=== PATIENT | male | born 1955 | race Caucasian/White ===

== ENCOUNTER 2018-02-22 13:17 | Inpatient (IN) | payer MEDICARE, MEDICAID ==
--- NOTE | 2018-02-22 14:22 | ED Physician Chart ---
ED Chief Complaint/HPI - Patient Information Date Seen:: 02/22/18 Time Seen:: 14:12 History of Present Illness:: COUGH THIS A.M. WITH ASSOCIATED EMESIS 1. THE PATIENT DENIES ANY ASSOCIATED FEVER, CHILLS OR CHEST PAIN. PATIENT IS STATUS POST CVA AND IS CONFUSED AND THE HPI IS UNRELIABLE. Paperwork which accompanies the patientis he has schizophrenia GERD hypertensive heart disease and anxiety disorder COPD Allergies:: Allergies Allergy/AdvReac Type Severity Reaction Status Date / Time No Known Allergies Allergy Verified 05/22/16 16:09 Vitals:: Vital Signs - 8 hr 02/22/18 13:27 Temp 99.6 F HR 104 RR 19 BP 116/65 O2 Sat % 98 ED Review of Systems - Review of Systems General/Constitutional: Fever (patient is too confused to give adequate review of systems.), Weakness, No edema, Loss of appetite, Other (patient too confused and disoriented to provide an adequate ROS.) Skin: No rash Eyes: No diplopia ENT: No earache, No sore throat Neck: No mass noted, Other (nonambulatory due to stroke December 2017.) ED Past Medical History - Past Medical History Past Medical History: CAD, Other (hypertensive heart disease, COPD, GERD, schizophrenia, history of pressure ulceration over the buttocks) Family History: HTN Social History: Non Smoker, Care Facility Surgical History: Pacemaker (left knee.) Family Medical History - Family Member Mother History Unknown: Yes ED Labs/Radiology/EKG Results - Lab Results Comments:: Single view chest x-ray: There is mild cardiomegaly with no CHF. No areas of pulmonary consolidation or infiltrate. No pleural effusions. No pneumothorax. The aorta is tortuous with calcifications. Impression: No acute cardiopulmonary findings. ED Assessment - Assessment General Assessment: Triage Nursing Notes Reviewed. ED Septic Shock - . Is Septic Shock (SBP<90, OR Lactate>4 mmol\L) present?: No - <6hrs of presentation: Vital Signs: Vital Signs - 8 hr 02/22/18 13:27 Temp 99.6 F HR 104 RR 19 BP 116/65 O2 Sat % 98 Assessment of Lungs: Rhonchi, No Rales, No Wheezing, No Stridor ED Reassessment (Disposition) - Reassessment Reassessment Condition:: Unchanged - Diagnosis Diagnosis:: SEPSIS UNCLEAR SOURCE. - Patient Disposition Discharge/Transfer:: Acute Care w/in this hosp ED Discharge Plan - Patient Disposition Admit/Discharge/Transfer: Acute Care w/in this hosp
[2018-02-22 15:14] LABS: HEMATOCRIT 39.7 % (41.0-60); HEMOGLOBIN 12.8 gm/dL (12-16); MEAN CELL VOLUME 83.9 fl (80-99); MEAN CORPUSCULAR HGB CONC 32.2 pg (28.0-36.0); MEAN PLATELET VOLUME 9.8 fl; PLATELET COUNT 200 Th/cmm (150-400); RED BLOOD COUNT 4.73 Mil/cmm (4.30-5.70); RED CELL DISTRIBUTION WIDTH 17.9 % (11.5-20.0)
[2018-02-22 15:26] LABS: BUN - UREA NITROGEN 15 mg/dL (7-25); CALCIUM SERUM 9.7 mg/dL (8.6-10.3); CHLORIDE 99 mEq/L (98-107); CREATININE - SERUM 0.7 mg/dL (0.7-1.3); GFR AFRICAN-AMERICAN > 60.0 ml/min (>90); GFR NON AFRICAN-AMERICAN > 60.0 ml/min; GLUCOSE 126 mg/dL (70-105); SODIUM SERUM 130 mEq/L (136-145)
[2018-02-22 15:29] LABS: MANUAL DIFF REQUIRED? YES; WHITE BLOOD COUNT 17.8 Th/cmm (4.8-10.8)
[2018-02-22 15:39] LABS: LYMPHOCYTE 4 % (20-50); MONOCYTE 4 % (2-10); NEUTROPHILS 92 % (40-80); PLATELET ESTIMATE ADEQUATE (NORMAL)
[2018-02-22] MEDS ORDERED: cefTRIAXone 2 GM in Sodium Chloride 0.9% 100 ML IV ONE (18:32)
[2018-02-22] MEDS ORDERED: Acetaminophen 500 MG TAB PO ONE (19:46)
[2018-02-22] MEDS ORDERED: Sodium Chloride 0.9% 1,000 ML IV ONE (19:46)
[2018-02-22] MEDS ORDERED: Acetaminophen 500 MG TAB ONE (20:00)
[2018-02-22] MEDS ORDERED: Magnesium Hydroxide (MOM) 30 mL UDC PO PRN (22:05)
[2018-02-22] MEDS ORDERED: VALPROIC ACID 250 MG PO SCH (22:15)
[2018-02-22 22:41] VITALS: BP 139/81
--- NOTE | 2018-02-22 23:03 | Consultation ---
Consult Note - Consult Note Service Date: 02/22/18 Referring Physician: [place] Consult Note: PHYSICIAN Consultation Note: Date of Admission: 02/22/18 Purpose of Consultation: sepsis. Chief Complaint: Patient KIP MARIE was admitted to location Medical/ Surgical Unit I with SEPSIS. History of Present Illness: 63 year old male with history of CAD, CVA, HTN, schizophrenia, had developed fever and vomiting, so he was brought to the ED for further evaluation and management. on initial evaluation, his temperature was 99.6 degree F, it went up to100.5 degree F. Her WBC count was 17,800. Zosyn was started and ID consult was called for antibiotic management. CXR showed LLL infiltrates and effusion. Past Medical History: CAD, CVA, HTN, schizophrenia, Allergies Allergy/AdvReac Type Severity Reaction Status Date / Time No Known Allergies Allergy Verified 05/22/16 16:09 Vital Signs Temp 99.6 F 02/22/18 13:27 Pulse 104 02/22/18 13:27 Resp 19 02/22/18 13:27 BP 139/81 02/22/18 22:41 Pulse Ox 98 02/22/18 13:27 Intake & Output 02/22/18 02/22/18 02/23/18 06:59 18:59 06:59 Weight (lbs) 96.162 kg Home Medication Medication Instructions Recorded Type Acetaminophen [Tylenol] 650 mg PO Q4H PRN 08/14/12 History Aspirin [Aspirin Low Dose] 81 mg PO DAILY 08/14/12 History Docusate Sodium [Colace] 200 mg PO HS 08/14/12 History Magnesium Hydroxide [Milk of 30 ml PO HS PRN 08/14/12 History Magnesia] Bisacodyl [Dulcolax 5 Mg Ec Tab] 10 mg PO Q72H PRN 09/19/15 History Lisinopril [Zestril] 10 mg PO DAILY 05/22/16 History Multivitamin with Minerals 1 tab PO DAILY 05/22/16 History [Multi-Vitamin W/Minerals] Omeprazole [Prilosec*] 20 mg PO DAILY 05/22/16 History Ascorbic Acid [Vitamin C] 500 mg PO DAILY 02/22/18 History Ferrous Sulfate [Iron] 325 mg PO BID 02/22/18 History Melatonin 6 mg PO HS PRN 02/22/18 History OLANZapine [ZyPREXA] 20 mg PO DAILY 02/22/18 History Potassium Chloride 1 cap PO DAILY 02/22/18 History Valproic Acid (As Sodium Salt) 250 mg PO Q12H 02/22/18 History [Depakene] Zinc Sulfate 220 mg PO DAILY 02/22/18 History Current Medications Generic Name Dose Route Start Last Admin Trade Name Freq PRN Reason Stop Dose Admin Acetaminophen 650 mg 02/22/18 22:05 Tylenol PO 04/23/18 22:04 Q4H PRN Pain OR TEMP>100 Ascorbic Acid 500 mg 02/23/18 09:00 Vitamin C PO 04/24/18 08:59 DAILY [facility] Aspirin 81 mg 02/23/18 09:00 Aspirin Chewable PO 04/24/18 08:59 DAILY [facility] Bisacodyl 10 mg 02/22/18 22:05 Dulcolax 5 Mg Ec Tab PO 04/23/18 22:04 Q72H PRN Constipation Docusate Sodium 200 mg 02/23/18 21:00 Colace PO 04/24/18 20:59 HS [facility] Ferrous Sulfate 325 mg 02/23/18 09:00 Iron PO 04/24/18 08:59 BID [facility] Sodium Chloride 1,000 mls @ 100 mls/hr 02/22/18 22:15 Nacl 0.9% IV 04/23/18 22:14 .Q10H [facility] Piperacillin Sod/Tazobactam 50 mls @ 100 mls/hr 02/23/18 00:00 Sod 3.375 gm/ Sodium Chloride IV 04/24/18 00:00 Q6HR [facility] Vancomycin HCl 1.25 gm/ Sodium 250 mls @ 165 mls/hr 02/22/18 23:00 Chloride IV 02/23/18 00:30 ONCE ONE Lisinopril 10 mg 02/23/18 09:00 Zestril PO 04/24/18 08:59 DAILY [facility] Magnesium Hydroxide 30 ml 02/22/18 22:05 Milk Of Magnesia PO 04/23/18 22:04 HS PRN Constipation Miscellaneous 1 ea 02/22/18 22:03 Vancomycin Iv Per Pharmacy 04/23/18 22:02 PRN PRN PROTOCOL Miscellaneous 250 mg 02/22/18 22:15 Valproic Acid (As Sodium Salt) [Depakene] PO 04/23/18 22:14 Q12H [facility] Olanzapine 20 mg 02/23/18 09:00 Zyprexa PO 04/24/18 08:59 DAILY [facility] Protocol Pantoprazole Sodium 40 mg 02/23/18 09:00 Protonix PO 04/24/18 08:59 DAILY [facility] Review of Systems: A 12 point ROS was reviewed with the pertinent positive and negatives noted in the HPI. Physical Exam: General: no acute distress, well developed, well nourished HEENT: atraumatic, normocephalic, PERRLA, EOMI Neck: supple, no thyromegaly Cardiovascular: S1S2, regular Lungs: clear to auscultation bilaterally, clear to percussion Abdomen: soft, no tender, no distended, no mass Extremities: no cyanosis, no clubbing, no edema Neurological: awake, alert, oriented, CN 2-12 intact Skin: intact Assessment: 1. Leukocytosis, sepsis. 2. Pneumoia, aspiration. 3. vomiting. 4. CAD. 5. CVA. 6. HTN. 7. schizophrenia. Plan: Conitnue vanco IV and zosyn. Will follow up the labs. Thank you, Dr Everett for involving me in taking care of this patient. Anna, Albaro Souza M.D. [id number]
[2018-02-22] MEDS: Sodium Chloride 0.9% 1,000 ML IV SCH (23:12)
[2018-02-23] MEDS ORDERED: Piperacillin Sodium/Tazobact 3.375 gm Vial IV ONE ×2 (00:11→05:34)
[2018-02-23 06:51] LABS: % BASOPHILS 0.1 % (0.0-2.0); % EOSINOPHILS 0.4 % (0.0-5.0); % LYMPHOCYTES 12.6 % (20.0-50.0); % MONOCYTES 8.8 % (2.0-10.0); % NEUTROPHILS 78.1 % (40.0-80.0); HEMOGLOBIN 11.3 gm/dL (12-16); LYMPHOCYTE ABSOLUTE 1.3 Th/cmm (1.5-3.0); MEAN CELL VOLUME 83.5 fl (80-99); MEAN CORPUSCULAR HEMOGLOBIN 27.8 pg (26.0-30.0); MEAN CORPUSCULAR HGB CONC 33.2 pg (28.0-36.0); MEAN PLATELET VOLUME 10.2 fl; MONOCYTE ABSOLUTE 0.9 Th/cmm (0.3-1.0); NEUTROPHILE ABSOLUTE 8.1 Th/cmm (1.8-8.0); RED BLOOD COUNT 4.08 Mil/cmm (4.30-5.70); RED CELL DISTRIBUTION WIDTH 17.9 % (11.5-20.0)
[2018-02-23 06:56] LABS: HEMATOCRIT 34.1 % (41.0-60); WHITE BLOOD COUNT 10.3 Th/cmm (4.8-10.8)
[2018-02-23 06:57] LABS: PLATELET COUNT 121 Th/cmm (150-400)
[2018-02-23 07:00] LABS: ALB/GLOB RATIO 0.9 (1.0-1.8); ALBUMIN 3.1 gm/dL (4.2-5.5); ALKALINE PHOSPHATASE 63 U/L (34-104); ANION GAP 10.4 (7.0-16.0); BILIRUBIN,TOTAL 0.5 mg/dL (0.3-1.0); BUN - UREA NITROGEN 12 mg/dL (7-25); CALCIUM SERUM 8.9 mg/dL (8.6-10.3); CARBON DIOXIDE 21.4 mEq/L (21.0-31.0); CHLORIDE 103 mEq/L (98-107); CREATININE - SERUM 0.5 mg/dL (0.7-1.3); GFR AFRICAN-AMERICAN > 60.0 ml/min (>90); GFR NON AFRICAN-AMERICAN > 60.0 ml/min; GLUCOSE 95 mg/dL (70-105); POTASSIUM SERUM 3.8 mEq/L (3.5-5.1); SGOT 9 U/L (13-39); SGPT/ALT 8 U/L (7-52); SODIUM SERUM 131 mEq/L (136-145); TOTAL PROTEIN,SERUM 6.6 gm/dL (6.0-8.3)
[2018-02-23] MEDS: Ferrous Sulfate 325 MG TAB PO SCH ×2 (09:03→18:13)
[2018-02-23] MEDS: Aspirin 81mg Chewable Tab PO SCH (09:03)
[2018-02-23] MEDS: Pantoprazole 40 mg EC Tab PO SCH (09:03)
[2018-02-23] MEDS: Multivitamin w/ Minerals Tab PO SCH (09:04)
--- NOTE | 2018-02-23 09:17 | History and Physical ---
History of Present Illness - HPI Chief Complaint: Fever and vomit HPI: This is a permanent resident of a care home, I received a call from SNF stating that patient has having Vomit and fever. Patient was send to ER for Evaluation. During ER evaluation was foung Leukocytosis . 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 Social History Smoke: No Alcohol: None Drugs: None Lives: [facility] Domestic Violence: Negative - Medications Home Medications: Home Medication Medication Instructions Recorded Type Acetaminophen [Tylenol] 650 mg PO Q4H PRN 08/14/12 History Aspirin [Aspirin Low Dose] 81 mg PO DAILY 08/14/12 History Docusate Sodium [Colace] 200 mg PO HS 08/14/12 History Magnesium Hydroxide [Milk of 30 ml PO HS PRN 08/14/12 History Magnesia] Bisacodyl [Dulcolax 5 Mg Ec Tab] 10 mg PO Q72H PRN 09/19/15 History Lisinopril [Zestril] 10 mg PO DAILY 05/22/16 History Multivitamin with Minerals 1 tab PO DAILY 05/22/16 History [Multi-Vitamin W/Minerals] Omeprazole [Prilosec*] 20 mg PO DAILY 05/22/16 History Ascorbic Acid [Vitamin C] 500 mg PO DAILY 02/22/18 History Ferrous Sulfate [Iron] 325 mg PO BID 02/22/18 History Melatonin 6 mg PO HS PRN 02/22/18 History OLANZapine [ZyPREXA] 20 mg PO DAILY 02/22/18 History Potassium Chloride 1 cap PO DAILY 02/22/18 History Valproic Acid (As Sodium Salt) 250 mg PO Q12H 02/22/18 History [Depakene] Zinc Sulfate 220 mg PO DAILY 02/22/18 History - Allergies Allergies/Adverse Reactions: Allergies Allergy/AdvReac Type Severity Reaction Status Date / Time No Known Allergies Allergy Verified 05/22/16 16:09 Review of Systems - Review of Systems Constitutional: Report: Fever Eyes: Report: No Significant ENT: Report: No Significant Respiratory: Report: No Significant Cardiovascular: Report: No Significant Gastrointestinal: Report: Nausea, Vomiting Genitourinary: Report: No Significant Musculoskeletal: Report: Leg Pain Skin: Report: Other (Left buttock ulcer) Neurological: Report: Weakness, Other (limited movement of right leg.) Physical Exam - Physical Exam HEENT: Report: Ears Nose Throat within normal limits Neck: Report: Within normal limits Cardiovascular Systems: Report: Regular, Rate and Rhythm Respiratory: Report: Breath Sounds are within normal limits Abdomen: Report: Non-tender to palpation Back: Report: Inspection of back is within normal limits. Extremities: Report: Other (Right leg contracted) Skin: Report: Other (Decubit ulcer in left buttock stage 3) Neuro/Psych: Report: Disoriented to name time or place - Lab Results All Lab Results last 24 hours: Laboratory Results - last 24 hr 02/23/18 02/23/18 02/23/18 05:56 05:56 05:56 WBC 10.3 D RBC 4.08 L Hgb 11.3 L Hct 34.1 L D MCV 83.5 MCH 27.8 MCHC Differential 33.2 RDW 17.9 Plt Count 121 L D MPV 10.2 Neutrophils % 78.1 Lymphocytes % 12.6 L Monocytes % 8.8 Eosinophils % 0.4 Basophils % 0.1 Sodium 131 L Potassium 3.8 Chloride 103 Carbon Dioxide 21.4 Anion Gap 10.4 BUN 12 Creatinine 0.5 L Est GFR ( Amer) > 60.0 Est GFR (Non-Af Amer) > 60.0 BUN/Creatinine Ratio 24.0 Glucose 95 Calcium 8.9 Total Bilirubin 0.5 AST 9 L ALT 8 Alkaline Phosphatase 63 Total Protein 6.6 Albumin 3.1 L Globulin 3.5 Albumin/Globulin Ratio 0.9 L TSH 2.22 - Assessment Assessment: Current Active Problems Problem Status Onset COUGH WITH FEVER AND N/V Acute Patient is awake, alert, calm, not oriented, in no acute distress. 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 Consult with ID requested. Will continue to monitor.
--- NOTE | 2018-02-23 10:45 | Diagnostic Imaging Report ---
Exam: Portable chest x-ray HISTORY: Cough Findings: Portable examination of the chest at 1454 hours reviewed and compared to prior exam of 08/14/2012 demonstrates cardiomegaly. Ill-defined left basilar peribronchial infiltrate is noted superimposed small effusion. The right lung parenchyma is well aerated. Bony thorax intact. Mediastinal structures midline the heart is enlarged. IMPRESSION: left basilar infiltrate superimposed small effusion cannot be excluded follow-up exam is recommended.
[2018-02-23 15:38] LABS: URINE MICROSCOPIC INDICATED? YES; URINE SOURCE CLEAN C
[2018-02-23 15:39] LABS: URINE BILIRUBIN NEGATIVE (NEGATIVE); URINE BLOOD TRACE (NEGATIVE); URINE GLUCOSE (UA) NEGATIVE (NEGATIVE); URINE KETONE NEGATIVE (NEGATIVE); URINE LEUKOCYTE ESTERASE NEGATIVE (NEGATIVE); URINE NITRATE NEGATIVE (NEGATIVE); URINE PROTEIN NEGATIVE (NEGATIVE); URINE UROBILINOGEN 0.2 E.U./dL (0.2 - 1.0)
[2018-02-23 15:45] LABS: URINE CLARITY CLEAR (CLEAR); URINE COLOR YELLOW
[2018-02-23] MEDS: Sodium Chloride 0.9% 1,000 ML IV SCH (15:45)
[2018-02-23 15:46] LABS: URINE BACTERIA NONE SEEN /hpf (NONE SEEN); URINE EPITHELIAL CELLS RARE /lpf (FEW); URINE RBC 0-2 /hpf (0-5); URINE WBC 0-2 /hpf (0-5)
--- NOTE | 2018-02-23 20:04 | Infectious Disease Prog Note ---
Infectious Disease Subjective - Review of Systems Service Date: 02/23/18 Subjective: There is no new change, no fever. Infectious Disease Objective - Results Result Diagrams: 02/23/18 05:56 02/23/18 05:56 Recent Labs: Laboratory Last Values WBC 10.3 Th/cmm (4.8-10.8) D 02/23/18 05:56 RBC 4.08 Mil/cmm (4.30-5.70) L 02/23/18 05:56 Hgb 11.3 gm/dL (12-16) L 02/23/18 05:56 Hct 34.1 % (41.0-60) L D 02/23/18 05:56 MCV 83.5 fl (80-99) 02/23/18 05:56 MCH 27.8 pg (26.0-30.0) 02/23/18 05:56 MCHC Differential 33.2 pg (28.0-36.0) 02/23/18 05:56 RDW 17.9 % (11.5-20.0) 02/23/18 05:56 Plt Count 121 Th/cmm (150-400) L D 02/23/18 05:56 MPV 10.2 fl 02/23/18 05:56 Neutrophils % 78.1 % (40.0-80.0) 02/23/18 05:56 Lymphocytes % 12.6 % (20.0-50.0) L 02/23/18 05:56 Monocytes % 8.8 % (2.0-10.0) 02/23/18 05:56 Eosinophils % 0.4 % (0.0-5.0) 02/23/18 05:56 Basophils % 0.1 % (0.0-2.0) 02/23/18 05:56 Neutrophils (Manual) 92 % (40-80) H 02/22/18 15:05 Lymphocytes 4 % (20-50) L 02/22/18 15:05 Monocytes 4 % (2-10) 02/22/18 15:05 Platelet Estimate ADEQUATE (NORMAL) 02/22/18 15:05 Sodium 131 mEq/L (136-145) L 02/23/18 05:56 Potassium 3.8 mEq/L (3.5-5.1) 02/23/18 05:56 Chloride 103 mEq/L (98-107) 02/23/18 05:56 Carbon Dioxide 21.4 mEq/L (21.0-31.0) 02/23/18 05:56 Anion Gap 10.4 (7.0-16.0) 02/23/18 05:56 BUN 12 mg/dL (7-25) 02/23/18 05:56 Creatinine 0.5 mg/dL (0.7-1.3) L 02/23/18 05:56 Est GFR ( Amer) > 60.0 ml/min (>90) 02/23/18 05:56 Est GFR (Non-Af Amer) > 60.0 ml/min 02/23/18 05:56 BUN/Creatinine Ratio 24.0 02/23/18 05:56 Glucose 95 mg/dL (70-105) 02/23/18 05:56 Whole Bld Lactic Acid 1.01 mmol/L (0.60-1.99) 02/22/18 15:39 Calcium 8.9 mg/dL (8.6-10.3) 02/23/18 05:56 Total Bilirubin 0.5 mg/dL (0.3-1.0) 02/23/18 05:56 AST 9 U/L (13-39) L 02/23/18 05:56 ALT 8 U/L (7-52) 02/23/18 05:56 Alkaline Phosphatase 63 U/L (34-104) 02/23/18 05:56 Total Protein 6.6 gm/dL (6.0-8.3) 02/23/18 05:56 Albumin 3.1 gm/dL (4.2-5.5) L 02/23/18 05:56 Globulin 3.5 gm/dL 02/23/18 05:56 Albumin/Globulin Ratio 0.9 (1.0-1.8) L 02/23/18 05:56 TSH 2.22 uIU/ml (0.34-5.60) 02/23/18 05:56 Urine Source CLEAN C 02/23/18 15:00 Urine Color YELLOW 02/23/18 15:00 Urine Clarity CLEAR (CLEAR) 02/23/18 15:00 Urine pH 6.0 (4.6 - 8.0) 02/23/18 15:00 Ur Specific Chapman <= 1.005 (1.005-1.030) 02/23/18 15:00 Urine Protein NEGATIVE mg/dL (NEGATIVE) 02/23/18 15:00 Urine Glucose (UA) NEGATIVE mg/dL (NEGATIVE) 02/23/18 15:00 Urine Ketones NEGATIVE mg/dL (NEGATIVE) 02/23/18 15:00 Urine Blood TRACE (NEGATIVE) 02/23/18 15:00 Urine Nitrate NEGATIVE (NEGATIVE) 02/23/18 15:00 Urine Bilirubin NEGATIVE (NEGATIVE) 02/23/18 15:00 Urine Urobilinogen 0.2 E.U./dL (0.2 - 1.0) 02/23/18 15:00 Ur Leukocyte Esterase NEGATIVE (NEGATIVE) 02/23/18 15:00 Urine RBC 0-2 /hpf (0-5) H 02/23/18 15:00 Urine WBC 0-2 /hpf (0-5) 02/23/18 15:00 Ur Epithelial Cells RARE /lpf (FEW) 02/23/18 15:00 Urine Bacteria NONE SEEN /hpf (NONE SEEN) 02/23/18 15:00 - Physical Exam Vitals and I&O: Vital Signs Temp 98.4 F 02/23/18 16:00 Pulse 84 02/23/18 16:00 Resp 18 02/23/18 16:00 BP 117/69 02/23/18 16:00 Pulse Ox 99 02/23/18 16:00 Intake & Output 02/23/18 02/23/18 02/24/18 06:59 18:59 06:59 Intake Total 400 2446.667 Balance 400 2446.667 Weight (lbs) 96.162 kg 96.252 kg Intake: Intake, IV Amount 350 1346.667 Piperacillin Sodium/ 100 100 Tazobact 3.375 gm In Sodium Chloride 0.9% 50 ml @ 100 mls/hr IV Q6HR [facility] Rx#:[id number] Sodium Chloride 0.9% 1, 1246.667 000 ml @ 100 mls/hr IV . Q10H [facility] Rx#:[id number] Oral 50 1100 Other: # Voids 3 4 # Bowel Movements 0 1 Stool Characteristics Soft Formed Brown Weight Source Bedscale Bedscale Active Medications: Current Medications Acetaminophen (Tylenol) 650 mg PO Q4H PRN PRN Reason: Pain OR TEMP>100 Stop: 04/23/18 22:04 Last Admin: 02/23/18 05:39 Dose: 650 mg Ascorbic Acid (Vitamin C) 500 mg PO DAILY [facility] Stop: 04/24/18 08:59 Last Admin: 02/23/18 09:04 Dose: 500 mg Aspirin (Aspirin Chewable) 81 mg PO DAILY [facility] Stop: 04/24/18 08:59 Last Admin: 02/23/18 09:03 Dose: 81 mg Bisacodyl (Dulcolax 5 Mg Ec Tab) 10 mg PO Q72H PRN PRN Reason: Constipation Stop: 04/23/18 22:04 Docusate Sodium (Colace) 200 mg PO HS [facility] Stop: 04/24/18 20:59 Ferrous Sulfate (Iron) 325 mg PO BID [facility] Stop: 04/24/18 08:59 Last Admin: 02/23/18 18:13 Dose: Not Given Sodium Chloride (Nacl 0.9%) 1,000 mls @ 100 mls/hr IV .Q10H [facility] Stop: 04/23/18 22:14 Last Infusion: 02/23/18 18:13 Dose: 100 mls/hr Piperacillin Sod/Tazobactam (Sod 3.375 gm/ Sodium Chloride) 50 mls @ 100 mls/ hr IV Q6HR [facility] Stop: 04/24/18 00:00 Last Infusion: 02/23/18 18:13 Dose: Infused Lisinopril (Zestril) 10 mg PO DAILY [facility] Stop: 04/24/18 08:59 Last Admin: 02/23/18 09:04 Dose: 10 mg Magnesium Hydroxide (Milk Of Magnesia) 30 ml PO HS PRN PRN Reason: Constipation Stop: 04/23/18 22:04 Miscellaneous (Vancomycin Iv Per Pharmacy) 1 ea [facility] PRN PRN PRN Reason: PROTOCOL Stop: 04/23/18 22:02 Olanzapine (Zyprexa) 20 mg PO DAILY [facility] PRN Reason: Protocol Stop: 04/24/18 08:59 Last Admin: 02/23/18 09:03 Dose: 20 mg Pantoprazole Sodium (Protonix) 40 mg PO DAILY [facility] Stop: 04/24/18 08:59 Last Admin: 02/23/18 09:03 Dose: 40 mg Valproate Sodium (Depakene) 250 mg PO Q12H [facility] Stop: 04/24/18 09:44 Last Admin: 02/23/18 10:13 Dose: 250 mg General: no acute distress, well nourished HEENT: atraumatic, normocephalic, PERRLA, EOMI Neck: supple, no thyromegaly Cardiovascular: S1S2, regular Lungs: no clear to auscultation bilaterally, no clear to percussion Abdomen: soft, no tender, no distended Extremities: no cyanosis, no clubbing, no edema Neurological: awake, alert - Procedures Procedures: Procedures Procedure Code Date OTHER GROUP THERAPY 94.44 03/29/12 RECREATIONAL THERAPY 93.81 09/06/11 Infectious Disease Assmt/Plan - Problem List Patient Problems: All Active Problems COUGH WITH FEVER AND N/V (Acute) - Assessment Assessment: 1. Leukocytosis, resolved. 2. pneumonia. 3. Vomiting resolved. 4, Schizophrenia. 5. CAD. 5. CVA. 6. HTN. 7. schizophrenia. - Plan Plan: DC vanco iv and continue zosyn. Check F/u cxr. Check abdomial us, if negative may dc patient on levaquin 500mg po daily and flagyl 500mg po bid for 7 days.
[2018-02-24 06:33] LABS: % BASOPHILS 0.6 % (0.0-2.0); % EOSINOPHILS 6.2 % (0.0-5.0); % LYMPHOCYTES 23.6 % (20.0-50.0); % MONOCYTES 12.9 % (2.0-10.0); % NEUTROPHILS 56.7 % (40.0-80.0); EOSINOPHILE ABSOLUTE 0.4 Th/cmm (0.1-0.4); HEMATOCRIT 32.9 % (41.0-60); HEMOGLOBIN 10.8 gm/dL (12-16); LYMPHOCYTE ABSOLUTE 1.6 Th/cmm (1.5-3.0); MEAN CELL VOLUME 84.5 fl (80-99); MEAN CORPUSCULAR HEMOGLOBIN 27.7 pg (26.0-30.0); MEAN CORPUSCULAR HGB CONC 32.8 pg (28.0-36.0); MEAN PLATELET VOLUME 8.7 fl; MONOCYTE ABSOLUTE 0.9 Th/cmm (0.3-1.0); PLATELET COUNT 242 Th/cmm (150-400); RED BLOOD COUNT 3.89 Mil/cmm (4.30-5.70); RED CELL DISTRIBUTION WIDTH 17.9 % (11.5-20.0); WHITE BLOOD COUNT 6.9 Th/cmm (4.8-10.8)
[2018-02-24 06:57] LABS: ALB/GLOB RATIO 0.9 (1.0-1.8); ALKALINE PHOSPHATASE 57 U/L (34-104); ANION GAP 10.5 (7.0-16.0); BILIRUBIN,TOTAL 0.2 mg/dL (0.3-1.0); BUN - UREA NITROGEN 12 mg/dL (7-25); CALCIUM SERUM 8.6 mg/dL (8.6-10.3); CARBON DIOXIDE 22.3 mEq/L (21.0-31.0); CHLORIDE 106 mEq/L (98-107); CREATININE - SERUM 0.6 mg/dL (0.7-1.3); GFR AFRICAN-AMERICAN > 60.0 ml/min (>90); GFR NON AFRICAN-AMERICAN > 60.0 ml/min; GLUCOSE 87 mg/dL (70-105); POTASSIUM SERUM 3.8 mEq/L (3.5-5.1); SGOT 14 U/L (13-39); SGPT/ALT 12 U/L (7-52); SODIUM SERUM 135 mEq/L (136-145); TOTAL PROTEIN,SERUM 6.3 gm/dL (6.0-8.3)
[2018-02-24] MEDS ORDERED: Probiotic Screen MC PRN (08:45)
--- NOTE | 2018-02-24 08:47 | General Progress Note ---
Subjective - Review of Systems Service Date: 02/24/18 Subjective: I am fine Objective - Results Result Diagrams: 02/24/18 06:20 02/24/18 06:20 Recent Labs: Laboratory Last Values WBC 6.9 Th/cmm (4.8-10.8) 02/24/18 06:20 RBC 3.89 Mil/cmm (4.30-5.70) L 02/24/18 06:20 Hgb 10.8 gm/dL (12-16) L 02/24/18 06:20 Hct 32.9 % (41.0-60) L 02/24/18 06:20 MCV 84.5 fl (80-99) 02/24/18 06:20 MCH 27.7 pg (26.0-30.0) 02/24/18 06:20 MCHC Differential 32.8 pg (28.0-36.0) 02/24/18 06:20 RDW 17.9 % (11.5-20.0) 02/24/18 06:20 Plt Count 242 Th/cmm (150-400) 02/24/18 06:20 MPV 8.7 fl 02/24/18 06:20 Neutrophils % 56.7 % (40.0-80.0) 02/24/18 06:20 Lymphocytes % 23.6 % (20.0-50.0) 02/24/18 06:20 Monocytes % 12.9 % (2.0-10.0) H 02/24/18 06:20 Eosinophils % 6.2 % (0.0-5.0) H 02/24/18 06:20 Basophils % 0.6 % (0.0-2.0) 02/24/18 06:20 Neutrophils (Manual) 92 % (40-80) H 02/22/18 15:05 Lymphocytes 4 % (20-50) L 02/22/18 15:05 Monocytes 4 % (2-10) 02/22/18 15:05 Platelet Estimate ADEQUATE (NORMAL) 02/22/18 15:05 Sodium 135 mEq/L (136-145) L 02/24/18 06:20 Potassium 3.8 mEq/L (3.5-5.1) 02/24/18 06:20 Chloride 106 mEq/L (98-107) 02/24/18 06:20 Carbon Dioxide 22.3 mEq/L (21.0-31.0) 02/24/18 06:20 Anion Gap 10.5 (7.0-16.0) 02/24/18 06:20 BUN 12 mg/dL (7-25) 02/24/18 06:20 Creatinine 0.6 mg/dL (0.7-1.3) L 02/24/18 06:20 Est GFR ( Amer) > 60.0 ml/min (>90) 02/24/18 06:20 Est GFR (Non-Af Amer) > 60.0 ml/min 02/24/18 06:20 BUN/Creatinine Ratio 20.0 02/24/18 06:20 Glucose 87 mg/dL (70-105) 02/24/18 06:20 Whole Bld Lactic Acid 1.01 mmol/L (0.60-1.99) 02/22/18 15:39 Calcium 8.6 mg/dL (8.6-10.3) 02/24/18 06:20 Total Bilirubin 0.2 mg/dL (0.3-1.0) L 02/24/18 06:20 AST 14 U/L (13-39) 02/24/18 06:20 ALT 12 U/L (7-52) 02/24/18 06:20 Alkaline Phosphatase 57 U/L (34-104) 02/24/18 06:20 Total Protein 6.3 gm/dL (6.0-8.3) 02/24/18 06:20 Albumin 3.0 gm/dL (4.2-5.5) L 02/24/18 06:20 Globulin 3.3 gm/dL 02/24/18 06:20 Albumin/Globulin Ratio 0.9 (1.0-1.8) L 02/24/18 06:20 TSH 2.22 uIU/ml (0.34-5.60) 02/23/18 05:56 Urine Source CLEAN C 02/23/18 15:00 Urine Color YELLOW 02/23/18 15:00 Urine Clarity CLEAR (CLEAR) 02/23/18 15:00 Urine pH 6.0 (4.6 - 8.0) 02/23/18 15:00 Ur Specific [place] <= 1.005 (1.005-1.030) 02/23/18 15:00 Urine Protein NEGATIVE mg/dL (NEGATIVE) 02/23/18 15:00 Urine Glucose (UA) NEGATIVE mg/dL (NEGATIVE) 02/23/18 15:00 Urine Ketones NEGATIVE mg/dL (NEGATIVE) 02/23/18 15:00 Urine Blood TRACE (NEGATIVE) 02/23/18 15:00 Urine Nitrate NEGATIVE (NEGATIVE) 02/23/18 15:00 Urine Bilirubin NEGATIVE (NEGATIVE) 02/23/18 15:00 Urine Urobilinogen 0.2 E.U./dL (0.2 - 1.0) 02/23/18 15:00 Ur Leukocyte Esterase NEGATIVE (NEGATIVE) 02/23/18 15:00 Urine RBC 0-2 /hpf (0-5) H 02/23/18 15:00 Urine WBC 0-2 /hpf (0-5) 02/23/18 15:00 Ur Epithelial Cells RARE /lpf (FEW) 02/23/18 15:00 Urine Bacteria NONE SEEN /hpf (NONE SEEN) 02/23/18 15:00 - Physical Exam Vitals and I&O: Vital Signs Temp 98.7 F 02/24/18 04:00 Pulse 73 02/24/18 04:00 Resp 18 02/24/18 04:00 BP 98/64 02/24/18 04:00 Pulse Ox 99 02/24/18 04:00 Intake & Output 02/23/18 02/24/18 02/24/18 18:59 06:59 18:59 Intake Total 2446.667 50 Balance 2446.667 50 Weight (lbs) 96.252 kg Intake: Intake, IV Amount 1346.667 50 Piperacillin Sodium/ 100 50 Tazobact 3.375 gm In Sodium Chloride 0.9% 50 ml @ 100 mls/hr IV Q6HR [facility] Rx#:[id number] Sodium Chloride 0.9% 1, 1246.667 000 ml @ 100 mls/hr IV . Q10H [facility] Rx#:[id number] Oral 1100 Other: # Voids 4 # Bowel Movements 1 Stool Characteristics Soft Soft Formed Formed Brown Brown Weight Source Bedscale Active Medications: Current Medications Acetaminophen (Tylenol) 650 mg PO Q4H PRN PRN Reason: Pain OR TEMP>100 Stop: 04/23/18 22:04 Last Admin: 02/23/18 21:17 Dose: 650 mg Ascorbic Acid (Vitamin C) 500 mg PO DAILY [facility] Stop: 04/24/18 08:59 Last Admin: 02/23/18 09:04 Dose: 500 mg Aspirin (Aspirin Chewable) 81 mg PO DAILY [facility] Stop: 04/24/18 08:59 Last Admin: 02/23/18 09:03 Dose: 81 mg Bisacodyl (Dulcolax 5 Mg Ec Tab) 10 mg PO Q72H PRN PRN Reason: Constipation Stop: 04/23/18 22:04 Docusate Sodium (Colace) 200 mg PO HS [facility] Stop: 04/24/18 20:59 Last Admin: 02/23/18 20:57 Dose: 200 mg Ferrous Sulfate (Iron) 325 mg PO BID [facility] Stop: 04/24/18 08:59 Last Admin: 02/23/18 18:13 Dose: Not Given Sodium Chloride (Nacl 0.9%) 1,000 mls @ 100 mls/hr IV .Q10H [facility] Stop: 04/23/18 22:14 Last Infusion: 02/23/18 18:13 Dose: 100 mls/hr Piperacillin Sod/Tazobactam (Sod 3.375 gm/ Sodium Chloride) 50 mls @ 100 mls/ hr IV Q6HR [facility] Stop: 04/24/18 00:00 Last Admin: 02/24/18 05:11 Dose: 100 mls/hr Lactobacillus Rhamnosus (Culturelle 15b) 1 each PO DAILY [facility] Stop: 04/25/18 08:59 Lisinopril (Zestril) 10 mg PO DAILY [facility] Stop: 04/24/18 08:59 Last Admin: 02/23/18 09:04 Dose: 10 mg Magnesium Hydroxide (Milk Of Magnesia) 30 ml PO HS PRN PRN Reason: Constipation Stop: 04/23/18 22:04 Miscellaneous (Vancomycin Iv Per Pharmacy) 1 ea MC PRN PRN PRN Reason: PROTOCOL Stop: 04/23/18 22:02 Miscellaneous (Probiotic Screen) 1 ea MC PRN PRN PRN Reason: PROTOCOL Stop: 04/25/18 08:44 Olanzapine (Zyprexa) 20 mg PO DAILY [facility] PRN Reason: Protocol Stop: 04/24/18 08:59 Last Admin: 02/23/18 09:03 Dose: 20 mg Pantoprazole Sodium (Protonix) 40 mg PO DAILY [facility] Stop: 04/24/18 08:59 Last Admin: 02/23/18 09:03 Dose: 40 mg Valproate Sodium (Depakene) 250 mg PO Q12H [facility] Stop: 04/24/18 09:44 Last Admin: 02/23/18 20:57 Dose: 250 mg General: Alert, Other (Confused, not oriented) HEENT: Atraumatic Neck: Supple Cardiovascular: Regular rate Lungs: Clear to auscultation Abdomen: Bowel sounds, Soft Extremities: Tender (Contracture of right leg) Neurological: Other (Not ambulatory) Skin: Other (Decubit ulcer stage 3) Psych/Mental Status: Other (Confused, not oriented) - Procedures Procedures: Procedures Procedure Code Date OTHER GROUP THERAPY 94.44 03/29/12 RECREATIONAL THERAPY 93.81 09/06/11 Assessment/Plan - Problem List Patient Problems: All Active Problems COUGH WITH FEVER AND N/V (Acute) - Assessment Assessment: Current Active Problems Problem Status Onset COUGH WITH FEVER AND N/V Acute Patient is awake, alert, calm, not oriented, in no acute distress. 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 Consult with ID requested. Will continue to monitor.
[2018-02-24] MEDS: Aspirin 81mg Chewable Tab PO SCH (09:36)
[2018-02-24] MEDS: Lactobacillus Rhamnosus GG 15 Billion CFU CAP.SPRINK PO SCH (09:36)
[2018-02-24] MEDS: Multivitamin w/ Minerals Tab PO SCH (09:36)
[2018-02-24] MEDS: Ferrous Sulfate 325 MG TAB PO SCH ×2 (09:36→16:23)
[2018-02-24] MEDS: Pantoprazole 40 mg EC Tab PO SCH (09:36)
--- NOTE | 2018-02-24 09:40 | Diagnostic Imaging Report ---
Portable chest x-ray HISTORY: Pneumonia Compared with the prior exam of February 22, 2018, there has been clearing in the left lower lobe. Allowing for a poor inspiration, no focal processes are seen. IMPRESSION: 1. Clearing left lower lobe. Allowing for a poor inspiration, no definite focal processes are seen.
[2018-02-24] MEDS: Vancomycin HCl 1.5 GM in Sodium Chloride 0.9% 500 ML IV SCH ×2 (10:54→22:26)
--- NOTE | 2018-02-24 15:08 | Infectious Disease Prog Note ---
Infectious Disease Subjective - Review of Systems Service Date: 02/24/18 Subjective: There is no new change, no fever. Infectious Disease Objective - Results Result Diagrams: 02/24/18 06:20 02/24/18 06:20 Recent Labs: Laboratory Last Values WBC 6.9 Th/cmm (4.8-10.8) 02/24/18 06:20 RBC 3.89 Mil/cmm (4.30-5.70) L 02/24/18 06:20 Hgb 10.8 gm/dL (12-16) L 02/24/18 06:20 Hct 32.9 % (41.0-60) L 02/24/18 06:20 MCV 84.5 fl (80-99) 02/24/18 06:20 MCH 27.7 pg (26.0-30.0) 02/24/18 06:20 MCHC Differential 32.8 pg (28.0-36.0) 02/24/18 06:20 RDW 17.9 % (11.5-20.0) 02/24/18 06:20 Plt Count 242 Th/cmm (150-400) 02/24/18 06:20 MPV 8.7 fl 02/24/18 06:20 Neutrophils % 56.7 % (40.0-80.0) 02/24/18 06:20 Lymphocytes % 23.6 % (20.0-50.0) 02/24/18 06:20 Monocytes % 12.9 % (2.0-10.0) H 02/24/18 06:20 Eosinophils % 6.2 % (0.0-5.0) H 02/24/18 06:20 Basophils % 0.6 % (0.0-2.0) 02/24/18 06:20 Neutrophils (Manual) 92 % (40-80) H 02/22/18 15:05 Lymphocytes 4 % (20-50) L 02/22/18 15:05 Monocytes 4 % (2-10) 02/22/18 15:05 Platelet Estimate ADEQUATE (NORMAL) 02/22/18 15:05 Sodium 135 mEq/L (136-145) L 02/24/18 06:20 Potassium 3.8 mEq/L (3.5-5.1) 02/24/18 06:20 Chloride 106 mEq/L (98-107) 02/24/18 06:20 Carbon Dioxide 22.3 mEq/L (21.0-31.0) 02/24/18 06:20 Anion Gap 10.5 (7.0-16.0) 02/24/18 06:20 BUN 12 mg/dL (7-25) 02/24/18 06:20 Creatinine 0.6 mg/dL (0.7-1.3) L 02/24/18 06:20 Est GFR ( Amer) > 60.0 ml/min (>90) 02/24/18 06:20 Est GFR (Non-Af Amer) > 60.0 ml/min 02/24/18 06:20 BUN/Creatinine Ratio 20.0 02/24/18 06:20 Glucose 87 mg/dL (70-105) 02/24/18 06:20 Whole Bld Lactic Acid 1.01 mmol/L (0.60-1.99) 02/22/18 15:39 Calcium 8.6 mg/dL (8.6-10.3) 02/24/18 06:20 Total Bilirubin 0.2 mg/dL (0.3-1.0) L 02/24/18 06:20 AST 14 U/L (13-39) 02/24/18 06:20 ALT 12 U/L (7-52) 02/24/18 06:20 Alkaline Phosphatase 57 U/L (34-104) 02/24/18 06:20 Total Protein 6.3 gm/dL (6.0-8.3) 02/24/18 06:20 Albumin 3.0 gm/dL (4.2-5.5) L 02/24/18 06:20 Globulin 3.3 gm/dL 02/24/18 06:20 Albumin/Globulin Ratio 0.9 (1.0-1.8) L 02/24/18 06:20 TSH 2.22 uIU/ml (0.34-5.60) 02/23/18 05:56 Urine Source CLEAN C 02/23/18 15:00 Urine Color YELLOW 02/23/18 15:00 Urine Clarity CLEAR (CLEAR) 02/23/18 15:00 Urine pH 6.0 (4.6 - 8.0) 02/23/18 15:00 Ur Specific [place] <= 1.005 (1.005-1.030) 02/23/18 15:00 Urine Protein NEGATIVE mg/dL (NEGATIVE) 02/23/18 15:00 Urine Glucose (UA) NEGATIVE mg/dL (NEGATIVE) 02/23/18 15:00 Urine Ketones NEGATIVE mg/dL (NEGATIVE) 02/23/18 15:00 Urine Blood TRACE (NEGATIVE) 02/23/18 15:00 Urine Nitrate NEGATIVE (NEGATIVE) 02/23/18 15:00 Urine Bilirubin NEGATIVE (NEGATIVE) 02/23/18 15:00 Urine Urobilinogen 0.2 E.U./dL (0.2 - 1.0) 02/23/18 15:00 Ur Leukocyte Esterase NEGATIVE (NEGATIVE) 02/23/18 15:00 Urine RBC 0-2 /hpf (0-5) H 02/23/18 15:00 Urine WBC 0-2 /hpf (0-5) 02/23/18 15:00 Ur Epithelial Cells RARE /lpf (FEW) 02/23/18 15:00 Urine Bacteria NONE SEEN /hpf (NONE SEEN) 02/23/18 15:00 - Physical Exam Vitals and I&O: Vital Signs Temp 96.4 F 02/24/18 08:00 Pulse 70 02/24/18 09:36 Resp 20 02/24/18 08:00 BP 116/77 02/24/18 09:36 Pulse Ox 98 02/24/18 08:00 Intake & Output 02/23/18 02/24/18 02/24/18 18:59 06:59 18:59 Intake Total 2446.667 50 550 Balance 2446.667 50 550 Weight (lbs) 96.252 kg Intake: Intake, IV Amount 1346.667 50 550 Piperacillin Sodium/ 100 50 50 Tazobact 3.375 gm In Sodium Chloride 0.9% 50 ml @ 100 mls/hr IV Q6HR [facility] Rx#:[id number] Sodium Chloride 0.9% 1, 1246.667 000 ml @ 100 mls/hr IV . Q10H [facility] Rx#:[id number] Vancomycin HCl 1.5 gm In 500 Sodium Chloride 0.9% 500 ml @ 250 mls/hr IV Q12H [facility] Rx#:[id number] Oral 1100 Other: # Voids 4 # Bowel Movements 1 Stool Characteristics Soft Soft Soft Formed Formed Formed Brown Brown Brown Weight Source Bedscale Active Medications: Current Medications Acetaminophen (Tylenol) 650 mg PO Q4H PRN PRN Reason: Pain OR TEMP>100 Stop: 04/23/18 22:04 Last Admin: 02/23/18 21:17 Dose: 650 mg Ascorbic Acid (Vitamin C) 500 mg PO DAILY [facility] Stop: 04/24/18 08:59 Last Admin: 02/24/18 09:36 Dose: 500 mg Aspirin (Aspirin Chewable) 81 mg PO DAILY [facility] Stop: 04/24/18 08:59 Last Admin: 02/24/18 09:36 Dose: 81 mg Bisacodyl (Dulcolax 5 Mg Ec Tab) 10 mg PO Q72H PRN PRN Reason: Constipation Stop: 04/23/18 22:04 Docusate Sodium (Colace) 200 mg PO HS [facility] Stop: 04/24/18 20:59 Last Admin: 02/23/18 20:57 Dose: 200 mg Ferrous Sulfate (Iron) 325 mg PO BID [facility] Stop: 04/24/18 08:59 Last Admin: 02/24/18 09:36 Dose: 325 mg Sodium Chloride (Nacl 0.9%) 1,000 mls @ 100 mls/hr IV .Q10H [facility] Stop: 04/23/18 22:14 Last Infusion: 02/23/18 18:13 Dose: 100 mls/hr Piperacillin Sod/Tazobactam (Sod 3.375 gm/ Sodium Chloride) 50 mls @ 100 mls/ hr IV Q6HR [facility] Stop: 04/24/18 00:00 Last Admin: 02/24/18 13:00 Dose: 100 mls/hr Vancomycin HCl 1.5 gm/ Sodium (Chloride) 500 mls @ 250 mls/hr IV Q12H [facility] Stop: 04/25/18 09:59 Last Infusion: 02/24/18 13:00 Dose: Infused Lactobacillus Rhamnosus (Culturelle 15b) 1 each PO DAILY [facility] Stop: 04/25/18 08:59 Last Admin: 02/24/18 09:36 Dose: 1 each Lisinopril (Zestril) 10 mg PO DAILY [facility] Stop: 04/24/18 08:59 Last Admin: 02/24/18 09:36 Dose: 10 mg Magnesium Hydroxide (Milk Of Magnesia) 30 ml PO HS PRN PRN Reason: Constipation Stop: 04/23/18 22:04 Miscellaneous (Vancomycin Iv Per Pharmacy) 1 ea PRN PRN PRN Reason: PROTOCOL Stop: 04/23/18 22:02 Miscellaneous (Probiotic Screen) 1 ea PRN PRN PRN Reason: PROTOCOL Stop: 04/25/18 08:44 Olanzapine (Zyprexa) 20 mg PO DAILY [facility] PRN Reason: Protocol Stop: 04/24/18 08:59 Last Admin: 02/24/18 09:36 Dose: 20 mg Pantoprazole Sodium (Protonix) 40 mg PO DAILY [facility] Stop: 04/24/18 08:59 Last Admin: 02/24/18 09:36 Dose: 40 mg Valproate Sodium (Depakene) 250 mg PO Q12H [facility] Stop: 04/24/18 09:44 Last Admin: 02/24/18 09:36 Dose: 250 mg General: no acute distress, well developed, well nourished HEENT: atraumatic, normocephalic, PERRLA Neck: supple, no thyromegaly, no lymphadenopathy Cardiovascular: S1S2, regular Lungs: clear to auscultation bilaterally, clear to percussion Abdomen: soft, no tender, no distended, no mass Extremities: no cyanosis, no clubbing, no edema Neurological: awake, alert, oriented - Procedures Procedures: Procedures Procedure Code Date OTHER GROUP THERAPY 94.44 03/29/12 RECREATIONAL THERAPY 93.81 09/06/11 Infectious Disease Assmt/Plan - Problem List Patient Problems: All Active Problems COUGH WITH FEVER AND N/V (Acute) - Assessment Assessment: 1. Leukocytosis, resolved. 2. pneumonia. 3. Vomiting resolved. 4, Schizophrenia. 5. CAD. 5. CVA. 6. HTN. 7. schizophrenia. - Plan Plan: Continue zosyn. Check F/u cxr. Check abdomial us, if negative may dc patient on levaquin 500mg po daily and flagyl 500mg po bid for 7 days.
[2018-02-24] MEDS: Sodium Chloride 0.9% 1,000 ML IV SCH (17:04)
[2018-02-24] MEDS: Enoxaparin 30 mg/0.3 mL 0.3mL Syr SUBQ SCH (18:32)
[2018-02-25 07:06] LABS: % EOSINOPHILS 11.7 % (0.0-5.0); % LYMPHOCYTES 30.8 % (20.0-50.0); % MONOCYTES 11.4 % (2.0-10.0); % NEUTROPHILS 46.1 % (40.0-80.0); EOSINOPHILE ABSOLUTE 0.6 Th/cmm (0.1-0.4); HEMATOCRIT 32.8 % (41.0-60); HEMOGLOBIN 10.8 gm/dL (12-16); LYMPHOCYTE ABSOLUTE 1.7 Th/cmm (1.5-3.0); MEAN CELL VOLUME 83.3 fl (80-99); MEAN CORPUSCULAR HEMOGLOBIN 27.5 pg (26.0-30.0); MEAN PLATELET VOLUME 9.7 fl; MONOCYTE ABSOLUTE 0.6 Th/cmm (0.3-1.0); NEUTROPHILE ABSOLUTE 2.6 Th/cmm (1.8-8.0); PLATELET COUNT 218 Th/cmm (150-400); RED BLOOD COUNT 3.94 Mil/cmm (4.30-5.70); RED CELL DISTRIBUTION WIDTH 18.2 % (11.5-20.0); WHITE BLOOD COUNT 5.5 Th/cmm (4.8-10.8)
[2018-02-25 07:20] LABS: ALKALINE PHOSPHATASE 50 U/L (34-104); ANION GAP 10.2 (7.0-16.0); BILIRUBIN,TOTAL 0.2 mg/dL (0.3-1.0); BUN - UREA NITROGEN 17 mg/dL (7-25); CALCIUM SERUM 8.7 mg/dL (8.6-10.3); CARBON DIOXIDE 23.7 mEq/L (21.0-31.0); CHLORIDE 106 mEq/L (98-107); CREATININE - SERUM 0.6 mg/dL (0.7-1.3); GFR AFRICAN-AMERICAN > 60.0 ml/min (>90); GFR NON AFRICAN-AMERICAN > 60.0 ml/min; GLUCOSE 88 mg/dL (70-105); POTASSIUM SERUM 3.9 mEq/L (3.5-5.1); SGOT 11 U/L (13-39); SGPT/ALT 14 U/L (7-52); SODIUM SERUM 136 mEq/L (136-145); TOTAL PROTEIN,SERUM 6.1 gm/dL (6.0-8.3)
--- NOTE | 2018-02-25 07:41 | Diagnostic Imaging Report ---
Abdominal ultrasound HISTORY: Pain Exam somewhat limited due to bowel gas. There is incomplete visualization of the liver. No definite focal lesions are seen. The gallbladder is somewhat contracted. In a fasting patient, finding may be associated with underlying gallbladder disease. If needed, a radionuclide biliary scan (HIDA scan) would provide for further assessment of gallbladder function. No biliary dilatation. The pancreas cannot be seen due to bowel gas. The right kidney appears normal. The left kidney appears somewhat generous in size. No focal lesions. No hydronephrosis. No other definite retroperitoneal or intra-abdominal abnormalities. IMPRESSION: 1. Partially contracted gallbladder. No definite intraluminal abnormalities. However, in a fasting patient, the finding may reflect underlying gallbladder disease. If necessary, a radionuclide biliary scan (HIDA scan) would provide for further assessment of gallbladder function.
--- NOTE | 2018-02-25 07:50 | Diagnostic Imaging Report ---
Left lower extremity Doppler venous ultrasound exam HISTORY: Pain/swelling Sonographic sector images were obtained through the deep venous systems of the left leg. Associated Doppler data was obtained. The exam demonstrates patency of the common femoral, superficial femoral, popliteal, and posterior tibial veins. Specifically, no thrombus is seen. There are normal compressibility and augmentation responses. IMPRESSION: Negative exam for deep vein thrombophlebitis.
--- NOTE | 2018-02-25 08:53 | Discharge Summary ---
General Discharge Summary - Discharge Summary Date of Admission: 02/22/18 Admitting Diagnosis: Sepsis, COPD, HTN, Schizophrenia, S/P CVA Patient Problems: All Active Problems COUGH WITH FEVER AND N/V (Acute) Discharge Date: 02/25/18 Discharge Diagnosis: SEpsis, PNA, COPD, HTN, Schizophrenia, S/P CVA Laboratory Findings: Laboratory Results - last 24 hr 02/25/18 02/25/18 05:55 05:55 WBC 5.5 RBC 3.94 L Hgb 10.8 L Hct 32.8 L MCV 83.3 MCH 27.5 MCHC Differential 33.0 RDW 18.2 Plt Count 218 MPV 9.7 Neutrophils % 46.1 Lymphocytes % 30.8 Monocytes % 11.4 H Eosinophils % 11.7 H Basophils % 0.0 Sodium 136 Potassium 3.9 Chloride 106 Carbon Dioxide 23.7 Anion Gap 10.2 BUN 17 Creatinine 0.6 L Est GFR ( Amer) > 60.0 Est GFR (Non-Af Amer) > 60.0 BUN/Creatinine Ratio 28.3 Glucose 88 Calcium 8.7 Total Bilirubin 0.2 L AST 11 L ALT 14 Alkaline Phosphatase 50 Total Protein 6.1 Albumin 3.0 L Globulin 3.1 Albumin/Globulin Ratio 1.0 Hospital Course: Patient responded to treatment, Leukocytosis was controlled. Treatment: IV NS, IV AB, continue with SNF meds. Follow by ID Condition at Discharge: Stable Disposition: [facility] (Not SNF) Home Medications: Home Medication Medication Instructions Recorded Type Acetaminophen [Tylenol] 650 mg PO Q4H PRN 08/14/12 History Aspirin [Aspirin Low Dose] 81 mg PO DAILY 08/14/12 History Docusate Sodium [Colace] 200 mg PO HS 08/14/12 History Magnesium Hydroxide [Milk of 30 ml PO HS PRN 08/14/12 History Magnesia] Bisacodyl [Dulcolax 5 Mg Ec Tab] 10 mg PO Q72H PRN 09/19/15 History Lisinopril [Zestril] 10 mg PO DAILY 05/22/16 History Multivitamin with Minerals 1 tab PO DAILY 05/22/16 History [Multi-Vitamin W/Minerals] Omeprazole [Prilosec*] 20 mg PO DAILY 05/22/16 History Ascorbic Acid [Vitamin C] 500 mg PO DAILY 02/22/18 History Ferrous Sulfate [Iron] 325 mg PO BID 02/22/18 History Melatonin 6 mg PO HS PRN 02/22/18 History OLANZapine [ZyPREXA] 20 mg PO DAILY 02/22/18 History Potassium Chloride 1 cap PO DAILY 02/22/18 History Valproic Acid (As Sodium Salt) 250 mg PO Q12H 02/22/18 History [Depakene] Zinc Sulfate 220 mg PO DAILY 02/22/18 History Inpatient Medications: Current Medications Acetaminophen (Tylenol) 650 mg PO Q4H PRN PRN Reason: Pain OR TEMP>100 Stop: 04/23/18 22:04 Last Admin: 02/25/18 02:34 Dose: 650 mg Ascorbic Acid (Vitamin C) 500 mg PO DAILY [facility] Stop: 04/24/18 08:59 Last Admin: 02/24/18 09:36 Dose: 500 mg Aspirin (Aspirin Chewable) 81 mg PO DAILY [facility] Stop: 04/24/18 08:59 Last Admin: 02/24/18 09:36 Dose: 81 mg Bisacodyl (Dulcolax 5 Mg Ec Tab) 10 mg PO Q72H PRN PRN Reason: Constipation Stop: 04/23/18 22:04 Morning Sun Oil/[place] Balsam/Trypsin (Venelex) 1 appl TP DAILY [facility] Stop: 04/26/18 08:59 Docusate Sodium (Colace) 200 mg PO HS [facility] Stop: 04/24/18 20:59 Last Admin: 02/24/18 20:57 Dose: 200 mg Enoxaparin Sodium (Lovenox) 30 mg SUBQ DAILY [facility] Stop: 04/25/18 17:14 Last Admin: 02/24/18 18:32 Dose: 30 mg Ferrous Sulfate (Iron) 325 mg PO BID [facility] Stop: 04/24/18 08:59 Last Admin: 02/24/18 16:23 Dose: 325 mg Sodium Chloride (Nacl 0.9%) 1,000 mls @ 100 mls/hr IV .Q10H [facility] Stop: 04/23/18 22:14 Last Admin: 02/24/18 17:04 Dose: 100 mls/hr Piperacillin Sod/Tazobactam (Sod 3.375 gm/ Sodium Chloride) 50 mls @ 100 mls/ hr IV Q6HR [facility] Stop: 04/24/18 00:00 Last Admin: 02/25/18 06:32 Dose: 100 mls/hr Vancomycin HCl 1.5 gm/ Sodium (Chloride) 500 mls @ 250 mls/hr IV Q12H [facility] Stop: 04/25/18 09:59 Last Admin: 02/24/18 22:26 Dose: 250 mls/hr Lactobacillus Rhamnosus (Culturelle 15b) 1 each PO DAILY [facility] Stop: 04/25/18 08:59 Last Admin: 02/24/18 09:36 Dose: 1 each Lisinopril (Zestril) 10 mg PO DAILY [facility] Stop: 04/24/18 08:59 Last Admin: 02/24/18 09:36 Dose: 10 mg Magnesium Hydroxide (Milk Of Magnesia) 30 ml PO HS PRN PRN Reason: Constipation Stop: 04/23/18 22:04 Miscellaneous (Vancomycin Iv Per Pharmacy) 1 ea PRN PRN PRN Reason: PROTOCOL Stop: 04/23/18 22:02 Miscellaneous (Probiotic Screen) 1 ea PRN PRN PRN Reason: PROTOCOL Stop: 04/25/18 08:44 Olanzapine (Zyprexa) 20 mg PO DAILY [facility] PRN Reason: Protocol Stop: 04/24/18 08:59 Last Admin: 02/24/18 09:36 Dose: 20 mg Pantoprazole Sodium (Protonix) 40 mg PO DAILY [facility] Stop: 04/24/18 08:59 Last Admin: 02/24/18 09:36 Dose: 40 mg Valproate Sodium (Depakene) 250 mg PO Q12H [facility] Stop: 04/24/18 09:44 Last Admin: 02/24/18 20:56 Dose: 250 mg Activity: Bed Rest Discharge Diet: 2 Gram Sodium Consults and Follow-Up: [place] [Primary Care Provider] - Consulting Speciality: Other (PCP)
[2018-02-25] MEDS ORDERED: Venelex 60gm Tube TP SCH (09:00)
[2018-02-25] MEDS: Aspirin 81mg Chewable Tab PO SCH (09:15)
[2018-02-25] MEDS: Lactobacillus Rhamnosus GG 15 Billion CFU CAP.SPRINK PO SCH (09:15)
[2018-02-25] MEDS: Pantoprazole 40 mg EC Tab PO SCH (09:15)
[2018-02-25] MEDS: Multivitamin w/ Minerals Tab PO SCH (09:15)
[2018-02-25] MEDS: Ferrous Sulfate 325 MG TAB PO SCH (09:15)
[2018-02-25] MEDS: Enoxaparin 30 mg/0.3 mL 0.3mL Syr SUBQ SCH (09:17)
== END 2018-02-25 11:45 | DRG 871 ==
LOC: ER 13:17 → MSI 18:22
PROVIDERS: ADMIT General Practice; ATTEND General Practice
DX: A41.9 Sepsis, unspecified organism (principal); J69.0 Pneumonitis due to inhalation of food and vomit; L89.323 Pressure ulcer of left buttock, stage 3; I69.351 Hemiplegia and hemiparesis following cerebral infarction affecting right dominant side; J44.9 Chronic obstructive pulmonary disease, unspecified; F20.9 Schizophrenia, unspecified; I25.10 Atherosclerotic heart disease of native coronary artery without angina pectoris; K21.9 Gastro-esophageal reflux disease without esophagitis; I11.9 Hypertensive heart disease without heart failure; F41.9 Anxiety disorder, unspecified; Z82.49 Family history of ischemic heart disease and other diseases of the circulatory system; Z95.0 Presence of cardiac pacemaker; Z79.82 Long term (current) use of aspirin; Z79.899 Other long term (current) drug therapy
CPT/HCPCS: 36415-UA; 71045-TC; 76700-TC; 80048-TC; 80053-TC; 80202-TC; 81001-TC; 83605; 84443-TC; 85007-TC; 85025-TC; 85027-TC; 93971-TC-LT; J0696; J1650; J2543; J3370; J7030; J7040; J7042; J7051; Z7610

== ENCOUNTER 2018-08-30 11:22 | Inpatient (IN) | payer MEDICARE, MEDICAID ==
[2018-08-30 12:09] LABS: % BASOPHILS 0.7 % (0.0-2.0); % EOSINOPHILS 0.1 % (0.0-5.0); % LYMPHOCYTES 8.6 % (20.0-50.0); % MONOCYTES 5.7 % (2.0-10.0); % NEUTROPHILS 84.9 % (40.0-80.0); BASOPHILE ABSOLUTE 0.1 Th/cumm (0-0.2); HEMATOCRIT 44.2 % (41.0-60); HEMOGLOBIN 14.7 gm/dL (12-16); MEAN CELL VOLUME 88.2 fl (80-99); MEAN CORPUSCULAR HEMOGLOBIN 29.3 pg (26.0-30.0); MEAN CORPUSCULAR HGB CONC 33.2 pg (28.0-36.0); MEAN PLATELET VOLUME 9.3 fl; MONOCYTE ABSOLUTE 0.6 Th/cmm (0.3-1.0); NEUTROPHILE ABSOLUTE 9.5 Th/cmm (1.8-8.0); PLATELET COUNT 204 Th/cmm (150-400); RED BLOOD COUNT 5.01 Mil/cmm (4.30-5.70); RED CELL DISTRIBUTION WIDTH 14.2 % (11.5-20.0); WHITE BLOOD COUNT 11.2 Th/cmm (4.8-10.8)
[2018-08-30 12:14] LABS: URINE SOURCE CLEAN C
[2018-08-30 12:16] LABS: URINE BILIRUBIN NEGATIVE (NEGATIVE); URINE BLOOD MODERATE (NEGATIVE); URINE GLUCOSE (UA) NEGATIVE (NEGATIVE); URINE KETONE NEGATIVE (NEGATIVE); URINE LEUKOCYTE ESTERASE MODERATE (NEGATIVE); URINE MICROSCOPIC INDICATED? YES; URINE NITRATE NEGATIVE (NEGATIVE); URINE PROTEIN TRACE mg/dL (NEGATIVE); URINE UROBILINOGEN 0.2 E.U./dL (0.2 - 1.0)
[2018-08-30 12:24] LABS: ALB/GLOB RATIO 0.8 (1.0-1.8); ALBUMIN 3.7 gm/dL (4.2-5.5); ALKALINE PHOSPHATASE 67 U/L (34-104); ANION GAP 9.7 (7.0-16.0); BILIRUBIN,TOTAL 0.5 mg/dL (0.3-1.0); BUN - UREA NITROGEN 17 mg/dL (7-25); CALCIUM SERUM 9.6 mg/dL (8.6-10.3); CARBON DIOXIDE 24.9 mEq/L (21.0-31.0); CHLORIDE 100 mEq/L (98-107); CREATININE - SERUM 0.8 mg/dL (0.7-1.3); GFR AFRICAN-AMERICAN > 60.0 ml/min (>90); GFR NON AFRICAN-AMERICAN > 60.0 ml/min; GLUCOSE 108 mg/dL (70-105); POTASSIUM SERUM 3.6 mEq/L (3.5-5.1); SGOT 9 U/L (13-39); SGPT/ALT 7 U/L (7-52); SODIUM SERUM 131 mEq/L (136-145); TOTAL PROTEIN,SERUM 8.1 gm/dL (6.0-8.3)
[2018-08-30 12:26] LABS: INR 1.04 (0.5-1.4); PROTHROMBIN TIME (TEST) 10.8 SECONDS (9.5-11.5)
--- NOTE | 2018-08-30 12:36 | ED Physician Chart ---
ED Chief Complaint/HPI - Patient Information Date Seen:: 08/30/18 Time Seen:: 11:59 Chief Complaint:: infected buttocks area History of Present Illness:: this is a 63 yo male sent to this er for an evaluation and treatment of a bed sore area of the coccyx area. the patient is bed ridden from having a cva and is paraplegic. Allergies:: Allergies Allergy/AdvReac Type Severity Reaction Status Date / Time No Known Allergies Allergy Verified 08/30/18 11:39 Vitals:: Vital Signs - 8 hr 08/30/18 11:39 Temp 97.8 F HR 98 RR 18 BP 111/77 O2 Sat % 99 Historian:: Medical Records Review:: Nurse's Note Reviewed, Transfer documents Reviewed ED Review of Systems - Review of Systems General/Constitutional: No fever, No chills, No weight loss, No weakness, No diaphoresis, No edema, No loss of appetite Skin: No skin lesions, No rash, No bruising Head: No headache, No light-headedness Eyes: No loss of vision, No pain, No diplopia ENT: No earache, No nasal drainage, No sore throat, No tinnitus Neck: No neck pain, No swelling, No thyromegaly, No stiffness, No mass noted Cardio Vascular: No chest pain, No palpitations, No PND, No orthopnea, No edema Pulmonary: No SOB, No cough, No sputum, No wheezing GI: No nausea, No vomiting, No diarrhea, No pain, No melena, No hematochezia, No constipation, No hematemesis G/U: No dysuria, No frequency, No hematuria Musculoskeletal: No bone or joint pain, No back pain, No muscle pain Endocrine: No polyuria, No polydipsia Psychiatric: No prior psych history, No depression, No anxiety, No suicidal ideation Hematopoietic: No bruising, No lymphadenopathy Allergic/Immuno: No urticaria, No angioedema Neurological: No syncope, No focal symptoms, No weakness, No paresthesia, No headache, No seizure, No dizziness, No confusion, No vertigo ED Past Medical History - Past Medical History Obtainable: Yes Past Medical History: Asthma/COPD, CVA/TIA, Other (spastic paralysis of the lower extremities) Family History: None Social History: Non Smoker, No Alcohol, No Drug Use, Care Facility Surgical History: HIP Psychiatricy History: Dementia Medication: Reviewed Family Medical History - Family Member Mother History Unknown: Yes ED Physical Exam - Physical Examination General/Constitutional: Awake, Well-developed, well-nourished, Alert, No distress, GCS 15, Non-toxic appearing, Ambulatory Other Gen/Cons comments:: the patient is intermittently oriented and cooperative Head: Atraumatic Eyes: Lids, conjuctiva normal, PERRL, EOMI Skin: Nl inspection, No rash, No skin lesions, No ecchymosis, Well hydrated, No lymphadenopathy ENMT: External ears, nose nl, Nasal exam nl, Lips, teeth, gums nl Neck: Nontender, Full ROM w/o pain, No JVD, No nuchal rigidity, No bruit, No mass, No stridor Respiratory: Nl effort/Exclusion, Clear to Auscultation, No Wheeze/Rhonchi/Rales Cardio Vascular: RRR, No murmur, gallop, rubs, NL S1 S2 GI: No tenderness/rebounding/guarding, No organomegaly, No hernia, Normal BS's, Nondistended, No mass/bruits, No McBurney tenderness : No CVA tenderness Extremities: No tenderness or effusion, Full ROM, normal strength in all extremities (muscle wasting of all four extremities noted.), No edema, Normal digits & nails Neuro/Psych: Alert/oriented, DTR's symmetric, Normal sensory exam, Normal motor strength, Mood normal, Normal gait, No focal deficits Other Neuro/Psych comments:: this 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 Misc: Normal back, No paraspinal tenderness ED Labs/Radiology/EKG Results - Lab Results Results: Laboratory Tests 08/30/18 11:50 WBC 11.2 H RBC 5.01 Hgb 14.7 Hct 44.2 MCV 88.2 MCH 29.3 MCHC Differential 33.2 RDW 14.2 Plt Count 204 MPV 9.3 Neutrophils % 84.9 H Lymphocytes % 8.6 L Monocytes % 5.7 Eosinophils % 0.1 Basophils % 0.7 Abnormal Lab Results 08/30/18 08/30/18 08/30/18 11:50 11:50 11:50 WBC 11.2 H RBC 5.01 Hgb 14.7 Hct 44.2 MCV 88.2 MCH 29.3 MCHC Differential 33.2 RDW 14.2 Plt Count 204 MPV 9.3 Neutrophils % 84.9 H Lymphocytes % 8.6 L Monocytes % 5.7 Eosinophils % 0.1 Basophils % 0.7 PT 10.8 INR 1.04 PTT (Actin FS) 29.1 Sodium 131 L Potassium 3.6 Chloride 100 Carbon Dioxide 24.9 Anion Gap 9.7 BUN 17 Creatinine 0.8 Est GFR ( Amer) > 60.0 Est GFR (Non-Af Amer) > 60.0 BUN/Creatinine Ratio 21.3 Glucose 108 H Calcium 9.6 Total Bilirubin 0.5 AST 9 L ALT 7 Alkaline Phosphatase 67 Troponin I Total Protein 8.1 Albumin 3.7 L Globulin 4.4 Albumin/Globulin Ratio 0.8 L Urine Source Urine Color Urine Clarity Urine pH Ur Specific [place] Urine Protein Urine Glucose (UA) Urine Ketones Urine Blood Urine Nitrate Urine Bilirubin Urine Urobilinogen Ur Leukocyte Esterase Urine RBC Urine WBC Ur Epithelial Cells Urine Bacteria 08/30/18 08/30/18 11:50 11:54 WBC RBC Hgb Hct MCV MCH MCHC Differential RDW Plt Count MPV Neutrophils % Lymphocytes % Monocytes % Eosinophils % Basophils % PT INR PTT (Actin FS) Sodium Potassium Chloride Carbon Dioxide Anion Gap BUN Creatinine Est GFR ( Amer) Est GFR (Non-Af Amer) BUN/Creatinine Ratio Glucose Calcium Total Bilirubin AST ALT Alkaline Phosphatase Troponin I 0.01 Total Protein Albumin Globulin Albumin/Globulin Ratio Urine Source CLEAN C Urine Color YELLOW Urine Clarity HAZY Urine pH 6.0 Ur Specific [place] 1.020 Urine Protein TRACE Urine Glucose (UA) NEGATIVE Urine Ketones NEGATIVE Urine Blood MODERATE H Urine Nitrate NEGATIVE Urine Bilirubin NEGATIVE Urine Urobilinogen 0.2 Ur Leukocyte Esterase MODERATE H Urine RBC 5-10 H Urine WBC 10-25 H Ur Epithelial Cells FEW Urine Bacteria 3+ H - Radiology Results Results: chest x-ray = nad - EKG Interpretations EKG Time:: 11:56 Rate & Rhythm: rate= 97 sinus [place]: right axis Intervals: no ectopy seen ED Assessment - Assessment General Assessment: coccyx ulcer uriinary tract infection cva with residual paralysis ED Septic Shock - . Is Septic Shock (SBP<90, OR Lactate>4 mmol\L) present?: No - <6hrs of presentation: Vital Signs: Vital Signs - 8 hr 08/30/18 11:39 Temp 97.8 F HR 98 RR 18 BP 111/77 O2 Sat % 99 ED Reassessment (Disposition) - Reassessment Reassessment Condition:: Unchanged - Diagnosis Diagnosis:: coccyxic stage three ulcer urinary tract infection status post cva with paralysis - Patient Disposition Discharge/Transfer:: Acute Care w/in this hosp Admitting Medical Physician:: [place] Everett Condition at Disposition:: Unchanged
[2018-08-30 12:40] LABS: URINE CLARITY HAZY (CLEAR); URINE COLOR YELLOW
[2018-08-30 12:45] LABS: URINE BACTERIA 3+ /hpf (NONE SEEN); URINE EPITHELIAL CELLS FEW /lpf (FEW)
[2018-08-30] MEDS ORDERED: Piperacillin Sodium/Tazobact 3.375 gm Vial IV ONE (13:04)
[2018-08-30] MEDS ORDERED: Magnesium Hydroxide (MOM) 30 mL UDC PO PRN (16:17)
[2018-08-30] MEDS: Ferrous Sulfate 325 MG TAB PO SCH (17:08)
[2018-08-30] MEDS ORDERED: Sodium Chloride 0.9% 250 ML IV ONE (20:10)
[2018-08-30] MEDS: Sodium Chloride 0.9% 1,000 ML IV SCH (21:44)
[2018-08-31 06:33] LABS: % BASOPHILS 0.4 % (0.0-2.0); % EOSINOPHILS 3.1 % (0.0-5.0); % LYMPHOCYTES 16.5 % (20.0-50.0); % MONOCYTES 8.1 % (2.0-10.0); % NEUTROPHILS 71.9 % (40.0-80.0); EOSINOPHILE ABSOLUTE 0.3 Th/cmm (0.1-0.4); HEMOGLOBIN 12.5 gm/dL (12-16); LYMPHOCYTE ABSOLUTE 1.6 Th/cmm (1.5-3.0); MEAN CELL VOLUME 89.8 fl (80-99); MEAN CORPUSCULAR HEMOGLOBIN 29.2 pg (26.0-30.0); MEAN CORPUSCULAR HGB CONC 32.5 pg (28.0-36.0); MEAN PLATELET VOLUME 9.2 fl; MONOCYTE ABSOLUTE 0.8 Th/cmm (0.3-1.0); NEUTROPHILE ABSOLUTE 6.8 Th/cmm (1.8-8.0); PLATELET COUNT 196 Th/cmm (150-400); RED BLOOD COUNT 4.27 Mil/cmm (4.30-5.70); RED CELL DISTRIBUTION WIDTH 14.3 % (11.5-20.0); WHITE BLOOD COUNT 9.5 Th/cmm (4.8-10.8)
[2018-08-31] MEDS: Pantoprazole 40 mg EC Tab PO SCH (06:34)
[2018-08-31 06:35] LABS: HEMATOCRIT 38.3 % (41.0-60)
[2018-08-31] MEDS: Sodium Chloride 0.9% 1,000 ML IV SCH (06:38)
[2018-08-31 07:02] LABS: ALB/GLOB RATIO 0.8 (1.0-1.8); ALKALINE PHOSPHATASE 51 U/L (34-104); ANION GAP 10.5 (7.0-16.0); BILIRUBIN,TOTAL 0.3 mg/dL (0.3-1.0); BUN - UREA NITROGEN 26 mg/dL (7-25); CALCIUM SERUM 8.8 mg/dL (8.6-10.3); CARBON DIOXIDE 23.5 mEq/L (21.0-31.0); CHLORIDE 105 mEq/L (98-107); CREATININE - SERUM 0.8 mg/dL (0.7-1.3); GFR AFRICAN-AMERICAN > 60.0 ml/min (>90); GFR NON AFRICAN-AMERICAN > 60.0 ml/min; GLUCOSE 88 mg/dL (70-105); SGOT 7 U/L (13-39); SGPT/ALT 5 U/L (7-52); SODIUM SERUM 135 mEq/L (136-145); TOTAL PROTEIN,SERUM 6.7 gm/dL (6.0-8.3)
[2018-08-31] MEDS: Aspirin 81mg Chewable Tab PO SCH (09:51)
[2018-08-31] MEDS: Multivitamin w/ Minerals Tab PO SCH (09:52)
[2018-08-31] MEDS: Ferrous Sulfate 325 MG TAB PO SCH ×2 (09:53→17:23)
--- NOTE | 2018-08-31 10:47 | Diagnostic Imaging Report ---
Chest x-ray single view History: Congestion Comparison: 02/24/2018 The heart size is normal. No focal pulmonary parenchymal processes. No hilar or mediastinal abnormalities. Impression: No acute abnormalities
--- NOTE | 2018-08-31 11:39 | History and Physical ---
History of Present Illness - HPI Chief Complaint: Redness of skin around sacral ulcer HPI: This ios apatient that I follow at a SNF, I received a Phone call stating that area aroung ulcer was red and with increased in temperature. Ordwer to send patient to ER was done. 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, Other (S/P CVA) GI: Report: No Pertinent Hx Psych: Report: Schizophrenia Musculoskeletal: Report: Other (Hemiparesis) Rheumatologic: Report: No pertinent Hx Infectious Disease: Report: No Pertinent Hx Renal/: Report: No Pertinent Hx Endocrine: Report: No Pertinent Hx Dermatology: Report: Cellulitis - Past Surgical History Past Surgical History: No pertinent Hx Family Medical History - Family Member Mother History Unknown: Yes Social History Smoke: No Alcohol: None Drugs: None Lives: Correction Domestic Violence: Negative - Medications Home Medications: Home Medication Medication Instructions Recorded Type Acetaminophen [Tylenol] 650 mg PO Q4H PRN 08/14/12 History Aspirin [Aspirin Low Dose] 81 mg PO DAILY 08/14/12 History Docusate Sodium [Colace] 200 mg PO HS 08/14/12 History Magnesium Hydroxide [Milk of 30 ml PO HS PRN 08/14/12 History Magnesia] Bisacodyl [Dulcolax 5 Mg Ec Tab] 10 mg PO Q72H PRN 09/19/15 History Lisinopril [Zestril*] 10 mg PO DAILY 05/22/16 History Multivitamin with Minerals 1 tab PO DAILY 05/22/16 History [Multivitamins with Minerals] Omeprazole [Prilosec*] 20 mg PO QDAC 05/22/16 History Ascorbic Acid [Vitamin C] 500 mg PO DAILY 02/22/18 History Ferrous Sulfate [Iron] 325 mg PO BID 02/22/18 History OLANZapine [ZyPREXA] 20 mg PO DAILY 02/22/18 History Potassium Chloride 1 cap PO DAILY 02/22/18 History Valproic Acid (As Sodium Salt) 250 mg PO Q12H 02/22/18 History [Depakene] - Allergies Allergies/Adverse Reactions: Allergies Allergy/AdvReac Type Severity Reaction Status Date / Time No Known Allergies Allergy Verified 08/30/18 11:39 Review of Systems - Review of Systems Constitutional: Report: No Significant Eyes: Report: No Significant ENT: Report: No Significant Respiratory: Report: No Significant Cardiovascular: Report: No Significant Gastrointestinal: Report: No Significant Genitourinary: Report: No Significant Musculoskeletal: Report: No Significant Skin: Report: Other (Sacral ulcer) Neurological: Report: Confusion Physical Exam - Physical Exam HEENT: Report: Ears Nose Throat within normal limits Neck: Report: Within normal limits Cardiovascular Systems: Report: Regular, Rate and Rhythm Respiratory: Report: Breath Sounds are within normal limits Abdomen: Report: Non-tender to palpation Back: Report: Inspection of back is within normal limits. Extremities: Report: Other (Paraplegia) Skin: Report: Other (There is a sacral ulcer stage 2-3 and redness of skin) - Lab Results All Lab Results last 24 hours: Laboratory Results - last 24 hr 08/30/18 08/30/18 08/30/18 11:50 11:50 11:50 WBC 11.2 H RBC 5.01 Hgb 14.7 Hct 44.2 MCV 88.2 MCH 29.3 MCHC Differential 33.2 RDW 14.2 Plt Count 204 MPV 9.3 Neutrophils % 84.9 H Lymphocytes % 8.6 L Monocytes % 5.7 Eosinophils % 0.1 Basophils % 0.7 PT 10.8 INR 1.04 PTT (Actin FS) 29.1 Sodium 131 L Potassium 3.6 Chloride 100 Carbon Dioxide 24.9 Anion Gap 9.7 BUN 17 Creatinine 0.8 Est GFR ( Amer) > 60.0 Est GFR (Non-Af Amer) > 60.0 BUN/Creatinine Ratio 21.3 Glucose 108 H POC Glucose Calcium 9.6 Total Bilirubin 0.5 AST 9 L ALT 7 Alkaline Phosphatase 67 Troponin I Total Protein 8.1 Albumin 3.7 L Globulin 4.4 Albumin/Globulin Ratio 0.8 L TSH Urine Source Urine Color Urine Clarity Urine pH Ur Specific [place] Urine Protein Urine Glucose (UA) Urine Ketones Urine Blood Urine Nitrate Urine Bilirubin Urine Urobilinogen Ur Leukocyte Esterase Urine RBC Urine WBC Ur Epithelial Cells Urine Bacteria 08/30/18 08/30/18 08/30/18 11:50 11:50 11:54 WBC RBC Hgb Hct MCV MCH MCHC Differential RDW Plt Count MPV Neutrophils % Lymphocytes % Monocytes % Eosinophils % Basophils % PT INR PTT (Actin FS) Sodium Potassium Chloride Carbon Dioxide Anion Gap BUN Creatinine Est GFR ( Amer) Est GFR (Non-Af Amer) BUN/Creatinine Ratio Glucose POC Glucose Calcium Total Bilirubin AST ALT Alkaline Phosphatase Troponin I 0.01 Total Protein Albumin Globulin Albumin/Globulin Ratio TSH 1.97 Urine Source CLEAN C Urine Color YELLOW Urine Clarity HAZY Urine pH 6.0 Ur Specific [place] 1.020 Urine Protein TRACE Urine Glucose (UA) NEGATIVE Urine Ketones NEGATIVE Urine Blood MODERATE H Urine Nitrate NEGATIVE Urine Bilirubin NEGATIVE Urine Urobilinogen 0.2 Ur Leukocyte Esterase MODERATE H Urine RBC 5-10 H Urine WBC 10-25 H Ur Epithelial Cells FEW Urine Bacteria 3+ H 08/30/18 08/31/18 08/31/18 19:51 06:20 06:20 WBC 9.5 RBC 4.27 L Hgb 12.5 Hct 38.3 L D MCV 89.8 MCH 29.2 MCHC Differential 32.5 RDW 14.3 Plt Count 196 MPV 9.2 Neutrophils % 71.9 Lymphocytes % 16.5 L Monocytes % 8.1 Eosinophils % 3.1 Basophils % 0.4 PT INR PTT (Actin FS) Sodium 135 L Potassium 4.0 Chloride 105 Carbon Dioxide 23.5 Anion Gap 10.5 BUN 26 H Creatinine 0.8 Est GFR ( Amer) > 60.0 Est GFR (Non-Af Amer) > 60.0 BUN/Creatinine Ratio 32.5 Glucose 88 POC Glucose 161 H Calcium 8.8 Total Bilirubin 0.3 AST 7 L ALT 5 L Alkaline Phosphatase 51 Troponin I Total Protein 6.7 Albumin 3.0 L Globulin 3.7 Albumin/Globulin Ratio 0.8 L TSH Urine Source Urine Color Urine Clarity Urine pH Ur Specific [place] Urine Protein Urine Glucose (UA) Urine Ketones Urine Blood Urine Nitrate Urine Bilirubin Urine Urobilinogen Ur Leukocyte Esterase Urine RBC Urine WBC Ur Epithelial Cells Urine Bacteria - Assessment Assessment: Patient is awake, alert, calm, confused, in no acute distress. Dx: Cellulitis, Decubitus ulcer, Paraplegia, Schizophrenia, COPD - Plan Plan: Patient in IV NS, Sozyn, pain management, continue with SNF meds. Will continue to monitor.
[2018-08-31] MEDS ORDERED: VTE Chemical Prophylaxis Screen/Admission MC PRN (12:10)
[2018-08-31] MEDS ORDERED: Probiotic Screen MC PRN (14:33)
[2018-08-31] MEDS: Lactobacillus Rhamnosus GG 15 Billion CFU CAP.SPRINK PO SCH (15:35)
[2018-09-01 06:16] LABS: % BASOPHILS 0.9 % (0.0-2.0); % EOSINOPHILS 5.2 % (0.0-5.0); % MONOCYTES 11.4 % (2.0-10.0); % NEUTROPHILS 45.5 % (40.0-80.0); EOSINOPHILE ABSOLUTE 0.2 Th/cmm (0.1-0.4); HEMATOCRIT 36.5 % (41.0-60); HEMOGLOBIN 12.3 gm/dL (12-16); LYMPHOCYTE ABSOLUTE 1.8 Th/cmm (1.5-3.0); MEAN CELL VOLUME 89.1 fl (80-99); MEAN CORPUSCULAR HGB CONC 33.6 pg (28.0-36.0); MEAN PLATELET VOLUME 9.3 fl; MONOCYTE ABSOLUTE 0.5 Th/cmm (0.3-1.0); NEUTROPHILE ABSOLUTE 2.3 Th/cmm (1.8-8.0); PLATELET COUNT 215 Th/cmm (150-400); RED CELL DISTRIBUTION WIDTH 13.9 % (11.5-20.0); WHITE BLOOD COUNT 4.8 Th/cmm (4.8-10.8)
[2018-09-01] MEDS: Pantoprazole 40 mg EC Tab PO SCH (06:40)
[2018-09-01] MEDS: Sodium Chloride 0.9% 1,000 ML IV SCH ×2 (06:45→21:45)
[2018-09-01 06:48] LABS: ALB/GLOB RATIO 0.9 (1.0-1.8); ALBUMIN 3.1 gm/dL (4.2-5.5); ALKALINE PHOSPHATASE 48 U/L (34-104); BILIRUBIN,TOTAL 0.2 mg/dL (0.3-1.0); BUN - UREA NITROGEN 12 mg/dL (7-25); CALCIUM SERUM 8.9 mg/dL (8.6-10.3); CARBON DIOXIDE 23.8 mEq/L (21.0-31.0); CHLORIDE 108 mEq/L (98-107); CREATININE - SERUM 0.5 mg/dL (0.7-1.3); GFR AFRICAN-AMERICAN > 60.0 ml/min (>90); GFR NON AFRICAN-AMERICAN > 60.0 ml/min; GLUCOSE 99 mg/dL (70-105); POTASSIUM SERUM 3.8 mEq/L (3.5-5.1); SGOT 12 U/L (13-39); SGPT/ALT 12 U/L (7-52); SODIUM SERUM 137 mEq/L (136-145); TOTAL PROTEIN,SERUM 6.6 gm/dL (6.0-8.3)
--- NOTE | 2018-09-01 08:41 | General Progress Note ---
Subjective - Review of Systems Service Date: 09/01/18 Subjective: I want go back to my home. Objective - Results Result Diagrams: 09/01/18 06:03 09/01/18 06:03 Recent Labs: Laboratory Last Values WBC 4.8 Th/cmm (4.8-10.8) 09/01/18 06:03 RBC 4.10 Mil/cmm (4.30-5.70) L 09/01/18 06:03 Hgb 12.3 gm/dL (12-16) 09/01/18 06:03 Hct 36.5 % (41.0-60) L 09/01/18 06:03 MCV 89.1 fl (80-99) 09/01/18 06:03 MCH 30.0 pg (26.0-30.0) 09/01/18 06:03 MCHC Differential 33.6 pg (28.0-36.0) 09/01/18 06:03 RDW 13.9 % (11.5-20.0) 09/01/18 06:03 Plt Count 215 Th/cmm (150-400) 09/01/18 06:03 MPV 9.3 fl 09/01/18 06:03 Neutrophils % 45.5 % (40.0-80.0) 09/01/18 06:03 Lymphocytes % 37.0 % (20.0-50.0) 09/01/18 06:03 Monocytes % 11.4 % (2.0-10.0) H 09/01/18 06:03 Eosinophils % 5.2 % (0.0-5.0) H 09/01/18 06:03 Basophils % 0.9 % (0.0-2.0) 09/01/18 06:03 PT 10.8 SECONDS (9.5-11.5) 08/30/18 11:50 INR 1.04 (0.5-1.4) 08/30/18 11:50 PTT (Actin FS) 29.1 SECONDS (26.0-38.0) 08/30/18 11:50 Sodium 137 mEq/L (136-145) 09/01/18 06:03 Potassium 3.8 mEq/L (3.5-5.1) 09/01/18 06:03 Chloride 108 mEq/L (98-107) H 10/08/18 06:03 Carbon Dioxide 23.8 mEq/L (21.0-31.0) 09/01/18 06:03 Anion Gap 9.0 (7.0-16.0) 09/01/18 06:03 BUN 12 mg/dL (7-25) 09/01/18 06:03 Creatinine 0.5 mg/dL (0.7-1.3) L 09/01/18 06:03 Est GFR ( Amer) > 60.0 ml/min (>90) 09/01/18 06:03 Est GFR (Non-Af Amer) > 60.0 ml/min 09/01/18 06:03 BUN/Creatinine Ratio 24.0 09/01/18 06:03 Glucose 99 mg/dL (70-105) 09/01/18 06:03 POC Glucose 161 MG/DL (70 - 105) H 08/30/18 19:51 Calcium 8.9 mg/dL (8.6-10.3) 09/01/18 06:03 Total Bilirubin 0.2 mg/dL (0.3-1.0) L 09/01/18 06:03 AST 12 U/L (13-39) L 09/01/18 06:03 ALT 12 U/L (7-52) 09/01/18 06:03 Alkaline Phosphatase 48 U/L (34-104) 09/01/18 06:03 Troponin I 0.01 ng/mL (0.01-0.05) 08/30/18 11:50 Total Protein 6.6 gm/dL (6.0-8.3) 09/01/18 06:03 Albumin 3.1 gm/dL (4.2-5.5) L 09/01/18 06:03 Globulin 3.5 gm/dL 09/01/18 06:03 Albumin/Globulin Ratio 0.9 (1.0-1.8) L 09/01/18 06:03 TSH 1.97 uIU/ml (0.34-5.60) 08/30/18 11:50 Urine Source CLEAN C 08/30/18 11:54 Urine Color YELLOW 08/30/18 11:54 Urine Clarity HAZY (CLEAR) 08/30/18 11:54 Urine pH 6.0 (4.6 - 8.0) 08/30/18 11:54 Ur Specific [place] 1.020 (1.005-1.030) 08/30/18 11:54 Urine Protein TRACE mg/dL (NEGATIVE) 08/30/18 11:54 Urine Glucose (UA) NEGATIVE mg/dL (NEGATIVE) 08/30/18 11:54 Urine Ketones NEGATIVE mg/dL (NEGATIVE) 08/30/18 11:54 Urine Blood MODERATE (NEGATIVE) H 08/30/18 11:54 Urine Nitrate NEGATIVE (NEGATIVE) 08/30/18 11:54 Urine Bilirubin NEGATIVE (NEGATIVE) 08/30/18 11:54 Urine Urobilinogen 0.2 E.U./dL (0.2 - 1.0) 08/30/18 11:54 Ur Leukocyte Esterase MODERATE (NEGATIVE) H 08/30/18 11:54 Urine RBC 5-10 /hpf (0-5) H 08/30/18 11:54 Urine WBC 10-25 /hpf (0-5) H 08/30/18 11:54 Ur Epithelial Cells FEW /lpf (FEW) 08/30/18 11:54 Urine Bacteria 3+ /hpf (NONE SEEN) H 08/30/18 11:54 - Physical Exam Vitals and I&O: Vital Signs Temp 97.4 F 09/01/18 08:07 Pulse 78 09/01/18 08:07 Resp 18 09/01/18 08:07 BP 117/73 09/01/18 08:07 Pulse Ox 98 09/01/18 08:07 Intake & Output 08/31/18 09/01/18 09/01/18 18:59 06:59 18:59 Intake Total 1950 50 200 Balance 1950 50 200 Weight (lbs) 89.358 kg 89.358 kg Intake: Intake, IV Amount 1050 50 Piperacillin Sodium/ 50 50 Tazobact 3.375 gm In Sodium Chloride 0.9% 50 ml @ 100 mls/hr IV Q8HR [facility] Rx#:[id number] Sodium Chloride 0.9% 1, 1000 000 ml @ 90 mls/hr IV . Q11H7M [facility] Rx#:[id number] Oral 900 200 Other: # Voids 3 3 # Bowel Movements 0 Weight Source Bedscale Bedscale Active Medications: Current Medications Acetaminophen (Tylenol) 650 mg PO Q4H PRN PRN Reason: Pain OR TEMP>100 Stop: 10/29/18 16:16 Last Admin: 08/31/18 21:41 Dose: 650 mg Ascorbic Acid (Vitamin C) 500 mg PO DAILY [facility] Stop: 10/30/18 08:59 Last Admin: 08/31/18 09:53 Dose: 500 mg Aspirin (Aspirin Chewable) 81 mg PO DAILY [facility] Stop: 10/30/18 08:59 Last Admin: 08/31/18 09:51 Dose: 81 mg Bisacodyl (Dulcolax 5 Mg Ec Tab) 10 mg PO Q72H PRN PRN Reason: Constipation Stop: 10/29/18 16:16 Docusate Sodium (Colace) 200 mg PO HS [facility] Stop: 10/29/18 20:59 Last Admin: 08/31/18 21:41 Dose: 200 mg Ferrous Sulfate (Iron) 325 mg PO BID [facility] Stop: 10/29/18 16:59 Last Admin: 08/31/18 17:23 Dose: 325 mg Heparin Sodium (Porcine) (Heparin) 5,000 units SUBQ Q12HR [facility] Stop: 10/30/18 20:59 Last Admin: 08/31/18 21:40 Dose: 5,000 units Piperacillin Sod/Tazobactam (Sod 3.375 gm/ Sodium Chloride) 50 mls @ 100 mls/ hr IV Q8HR [facility] Stop: 10/29/18 17:59 Last Admin: 09/01/18 05:15 Dose: 100 mls/hr Sodium Chloride (Nacl 0.9%) 1,000 mls @ 90 mls/hr IV .Q11H7M [facility] Stop: 10/29/18 20:29 Last Admin: 09/01/18 06:45 Dose: 90 mls/hr Lactobacillus Rhamnosus (Culturelle 15b) 1 each PO DAILY [facility] Stop: 10/30/18 14:59 Last Admin: 08/31/18 15:35 Dose: 1 each Lisinopril (Zestril) 10 mg PO DAILY [facility] Stop: 10/30/18 08:59 Last Admin: 08/31/18 09:52 Dose: 10 mg Magnesium Hydroxide (Milk Of Magnesia) 30 ml PO HS PRN PRN Reason: Constipation Stop: 10/29/18 16:16 Miscellaneous (Vte Chemical Prophylaxis Screen/ Admission) 1 ea [facility] PRN PRN PRN Reason: PROTOCOL Stop: 10/30/18 12:09 Miscellaneous (Probiotic Screen) 1 ea [facility] PRN PRN PRN Reason: PROTOCOL Stop: 10/30/18 14:32 Olanzapine (Zyprexa) 20 mg PO DAILY [facility]; Protocol Stop: 10/30/18 08:59 Pantoprazole Sodium (Protonix) 40 mg PO QDAC [facility] Stop: 10/30/18 07:29 Last Admin: 09/01/18 06:40 Dose: 40 mg Valproate Sodium (Depakene) 250 mg PO Q12H [facility] Stop: 10/29/18 16:29 Last Admin: 09/01/18 06:49 Dose: 250 mg General: Alert, Other (Confused) HEENT: Atraumatic Neck: Supple Cardiovascular: Regular rate Lungs: Clear to auscultation Abdomen: Bowel sounds, Soft Extremities: Other (No edema, paraplegia) Neurological: Other (Non ambulatory) Skin: Other (There is a sacral ulcer, redness improved.) Psych/Mental Status: Other (Confused, not oriented) - Procedures Procedures: Procedures Procedure Code Date OTHER GROUP THERAPY 94.44 03/29/12 RECREATIONAL THERAPY 93.81 09/06/11 Assessment/Plan - Assessment Assessment: Patient is awake, alert, calm, confused, in no acute distress. Dx: Cellulitis, Decubitus ulcer, Paraplegia, Schizophrenia, COPD. - Plan Plan: Patient in IV NS, Sozyn, pain management, continue with SNF meds. Consult with Psychiatry requested. Will continue to monitor.
[2018-09-01] MEDS: Lactobacillus Rhamnosus GG 15 Billion CFU CAP.SPRINK PO SCH (09:10)
[2018-09-01] MEDS: Ferrous Sulfate 325 MG TAB PO SCH ×2 (09:10→16:57)
[2018-09-01] MEDS: Aspirin 81mg Chewable Tab PO SCH (09:10)
[2018-09-01] MEDS: Multivitamin w/ Minerals Tab PO SCH (09:10)
--- NOTE | 2018-09-01 19:19 | History & Physical ---
ADMIT DATE: 09/01/2018 PHYSICIAN REQUESTING CONSULTATION: [place] MD REASON FOR CONSULTATION: Psychosis. HISTORY OF PRESENT ILLNESS: This patient is a 63-year-old male, resident of [facility] facility. Information obtained by directly interviewing the patient as well as reviewing the admission papers and they are reliable. JUSTIFICATION OF HOSPITALIZATION: The patient has been admitted over here for workup of the sepsis and psychiatric consultation is called to address the issue of the psychosis. Review of the chart indicated that the patient has been on 250 mg twice a day of the Depakote and olanzapine 20 mg at bedtime. Staff was spoken to, the patient is interviewed. The patient continues to be coming with the concrete responses and the patient seems to be intellectually challenged. Insight and judgment at this time are noted to be fair. Impulse control seems to be poor. The patient has been getting easily frustrated. Sleep is noted to be fair. Appetite is noted to be fair at this time. The patient is paranoid and is responding to internal stimuli. PAST PSYCHIATRIC HISTORY: Details are not known. MEDICAL HISTORY: Significant for the patient having high blood pressure and GERD. SUBSTANCE ABUSE HISTORY: None. PHYSICAL OR SEXUAL ABUSE HISTORY: None. LEGAL PROBLEMS: None at this time. MENTAL STATUS EXAMINATION: The patient is a 63-year-old, looking his stated age, superficially cooperative. Eye contact is fair. Mood is noted to be irritable. Affect is constricted. Insight and judgment at this time are noted to be still impaired. Impulse control is noted to be limited. Coping skills are noted to be limited. The patient has paranoia, but denies any command hallucinations at this time. The patient is alert and aware that he is in the hospital. Attention span and concentration are noted to be fair. The patient appears to be of below average intelligence. DIAGNOSTIC IMPRESSION: Psychosis, not otherwise specified, rule out schizophrenia, chronic paranoid type. PLAN: To continue the patient with Zyprexa and encouraged the patient to verbalize the concerns rather than to act out. JOB# [id number]
[2018-09-02 06:29] LABS: % BASOPHILS 0.7 % (0.0-2.0); % EOSINOPHILS 6.2 % (0.0-5.0); % LYMPHOCYTES 44.1 % (20.0-50.0); % MONOCYTES 7.9 % (2.0-10.0); % NEUTROPHILS 41.1 % (40.0-80.0); EOSINOPHILE ABSOLUTE 0.4 Th/cmm (0.1-0.4); HEMATOCRIT 41.1 % (41.0-60); HEMOGLOBIN 13.8 gm/dL (12-16); LYMPHOCYTE ABSOLUTE 2.5 Th/cmm (1.5-3.0); MEAN CELL VOLUME 89.9 fl (80-99); MEAN CORPUSCULAR HEMOGLOBIN 30.2 pg (26.0-30.0); MEAN CORPUSCULAR HGB CONC 33.6 pg (28.0-36.0); MEAN PLATELET VOLUME 8.8 fl; MONOCYTE ABSOLUTE 0.5 Th/cmm (0.3-1.0); NEUTROPHILE ABSOLUTE 2.3 Th/cmm (1.8-8.0); PLATELET COUNT 270 Th/cmm (150-400); RED BLOOD COUNT 4.57 Mil/cmm (4.30-5.70); WHITE BLOOD COUNT 5.7 Th/cmm (4.8-10.8)
[2018-09-02 06:39] LABS: ALB/GLOB RATIO 0.8 (1.0-1.8); ALBUMIN 3.4 gm/dL (4.2-5.5); ALKALINE PHOSPHATASE 52 U/L (34-104); ANION GAP 10.2 (7.0-16.0); BILIRUBIN,TOTAL 0.3 mg/dL (0.3-1.0); BUN - UREA NITROGEN 17 mg/dL (7-25); CALCIUM SERUM 9.6 mg/dL (8.6-10.3); CARBON DIOXIDE 24.9 mEq/L (21.0-31.0); CHLORIDE 104 mEq/L (98-107); CREATININE - SERUM 0.7 mg/dL (0.7-1.3); GFR AFRICAN-AMERICAN > 60.0 ml/min (>90); GFR NON AFRICAN-AMERICAN > 60.0 ml/min; GLUCOSE 93 mg/dL (70-105); POTASSIUM SERUM 4.1 mEq/L (3.5-5.1); SGOT 14 U/L (13-39); SGPT/ALT 13 U/L (7-52); SODIUM SERUM 135 mEq/L (136-145); TOTAL PROTEIN,SERUM 7.5 gm/dL (6.0-8.3)
--- NOTE | 2018-09-02 08:42 | Discharge Summary ---
General Discharge Summary - Discharge Summary Date of Admission: 08/30/18 Admitting Diagnosis: Cellulitis, Sacral Ulcer, Paraplegia, Schizophrenia, COPD Discharge Date: 09/02/18 Discharge Diagnosis: Cellulitis, Sacral ulcer, Paraplegia, Schizophrenia, COPD, MR Laboratory Findings: Laboratory Results - last 24 hr 09/02/18 09/02/18 06:20 06:20 WBC 5.7 RBC 4.57 Hgb 13.8 Hct 41.1 MCV 89.9 MCH 30.2 H MCHC Differential 33.6 RDW 14.0 Plt Count 270 MPV 8.8 Neutrophils % 41.1 Lymphocytes % 44.1 Monocytes % 7.9 Eosinophils % 6.2 H Basophils % 0.7 Sodium 135 L Potassium 4.1 Chloride 104 Carbon Dioxide 24.9 Anion Gap 10.2 BUN 17 Creatinine 0.7 Est GFR ( Amer) > 60.0 Est GFR (Non-Af Amer) > 60.0 BUN/Creatinine Ratio 24.3 Glucose 93 Calcium 9.6 Total Bilirubin 0.3 AST 14 ALT 13 Alkaline Phosphatase 52 Total Protein 7.5 Albumin 3.4 L Globulin 4.1 Albumin/Globulin Ratio 0.8 L Hospital Course: Patient was admited and responded to treatment, redness and sacral ulcer improved. Treatment: IV NS, IV Zosyn, Pain control, continue with same diet and SNF meds. Patient was evaluated by Psychiatry. Disposition: Discharge/Transfered to SNF Home Medications: Home Medication Medication Instructions Recorded Type Acetaminophen [Tylenol] 650 mg PO Q4H PRN 08/14/12 History Aspirin [Aspirin Low Dose] 81 mg PO DAILY 08/14/12 History Docusate Sodium [Colace] 200 mg PO HS 08/14/12 History Magnesium Hydroxide [Milk of 30 ml PO HS PRN 08/14/12 History Magnesia] Bisacodyl [Dulcolax 5 Mg Ec Tab] 10 mg PO Q72H PRN 09/19/15 History Lisinopril [Zestril*] 10 mg PO DAILY 05/22/16 History Multivitamin with Minerals 1 tab PO DAILY 05/22/16 History [Multivitamins with Minerals] Omeprazole [Prilosec*] 20 mg PO QDAC 05/22/16 History Ascorbic Acid [Vitamin C] 500 mg PO DAILY 02/22/18 History Ferrous Sulfate [Iron] 325 mg PO BID 02/22/18 History OLANZapine [ZyPREXA] 20 mg PO DAILY 02/22/18 History Potassium Chloride 1 cap PO DAILY 02/22/18 History Valproic Acid (As Sodium Salt) 250 mg PO Q12H 02/22/18 History [Depakene] Inpatient Medications: Current Medications Acetaminophen (Tylenol) 650 mg PO Q4H PRN PRN Reason: Pain OR TEMP>100 Stop: 10/29/18 16:16 Last Admin: 09/01/18 21:40 Dose: 650 mg Ascorbic Acid (Vitamin C) 500 mg PO DAILY SILVIO Stop: 10/30/18 08:59 Last Admin: 09/01/18 09:10 Dose: 500 mg Aspirin (Aspirin Chewable) 81 mg PO DAILY SILVIO Stop: 10/30/18 08:59 Last Admin: 09/01/18 09:10 Dose: 81 mg Bisacodyl (Dulcolax 5 Mg Ec Tab) 10 mg PO Q72H PRN PRN Reason: Constipation Stop: 10/29/18 16:16 [place] Oil/[place] Balsam/Trypsin (Venelex) 1 appl TP DAILY SILVIO Stop: 11/01/18 08:59 Docusate Sodium (Colace) 200 mg PO HS SILVIO Stop: 10/29/18 20:59 Last Admin: 09/01/18 21:40 Dose: 200 mg Ferrous Sulfate (Iron) 325 mg PO BID SILVIO Stop: 10/29/18 16:59 Last Admin: 09/01/18 16:57 Dose: 325 mg Heparin Sodium (Porcine) (Heparin) 5,000 units SUBQ Q12HR SILVIO Stop: 10/30/18 20:59 Last Admin: 09/01/18 21:40 Dose: 5,000 units Piperacillin Sod/Tazobactam (Sod 3.375 gm/ Sodium Chloride) 50 mls @ 100 mls/ hr IV Q8HR SILVIO Stop: 10/29/18 17:59 Last Admin: 09/02/18 04:53 Dose: 100 mls/hr Sodium Chloride (Nacl 0.9%) 1,000 mls @ 90 mls/hr IV .Q11H7M SILVIO Stop: 10/29/18 20:29 Last Admin: 09/01/18 21:45 Dose: 90 mls/hr Lactobacillus Rhamnosus (Culturelle 15b) 1 each PO DAILY SILVIO Stop: 10/30/18 14:59 Last Admin: 09/01/18 09:10 Dose: 1 each Lisinopril (Zestril) 10 mg PO DAILY SILVIO Stop: 10/30/18 08:59 Last Admin: 09/01/18 09:09 Dose: 10 mg Magnesium Hydroxide (Milk Of Magnesia) 30 ml PO HS PRN PRN Reason: Constipation Stop: 10/29/18 16:16 Miscellaneous (Vte Chemical Prophylaxis Screen/ Admission) 1 ea PRN PRN PRN Reason: PROTOCOL Stop: 10/30/18 12:09 Miscellaneous (Probiotic Screen) 1 ea PRN PRN PRN Reason: PROTOCOL Stop: 10/30/18 14:32 Olanzapine (Zyprexa) 20 mg PO DAILY [facility]; Protocol Stop: 10/30/18 08:59 Last Admin: 09/01/18 09:10 Dose: 20 mg Pantoprazole Sodium (Protonix) 40 mg PO QDAC SILVIO Stop: 10/30/18 07:29 Last Admin: 09/01/18 06:40 Dose: 40 mg Valproate Sodium (Depakene) 250 mg PO Q12H SILVIO Stop: 10/29/18 16:29 Last Admin: 09/02/18 04:53 Dose: 250 mg Discharge Diet: 2 Gram Sodium Consults and Follow-Up: [place] [Primary Care Provider] - Consulting Speciality: Other (PCP)
[2018-09-02] MEDS ORDERED: Venelex 60gm Tube TP SCH (09:00)
[2018-09-02] MEDS: Aspirin 81mg Chewable Tab PO SCH (09:32)
[2018-09-02] MEDS: Lactobacillus Rhamnosus GG 15 Billion CFU CAP.SPRINK PO SCH (09:32)
[2018-09-02] MEDS: Multivitamin w/ Minerals Tab PO SCH (09:33)
[2018-09-02] MEDS: Ferrous Sulfate 325 MG TAB PO SCH (09:33)
[2018-09-02] MEDS: Pantoprazole 40 mg EC Tab PO SCH (09:36)
--- NOTE | 2018-09-02 23:45 | Progress Notes ---
DATE: 09/02/2018 SUBJECTIVE: Staff was spoken to. The patient is interviewed. Mood is noted to be less irritable. Affect is appropriate. The patient is stating that he has been taking the medications and is not much of any problem. Insight and judgment at this time are noted to be improving. Impulse control seems to be limited. ASSESSMENT: The patient is still paranoid. PLAN: To continue the patient with the current medications. I encouraged the patient to verbalize the concerns rather than to act out. JOB# [id number]
== END 2018-09-02 15:40 | DRG 592 ==
LOC: ER 11:22 → MSI 13:05
PROVIDERS: ADMIT General Practice; ATTEND General Practice
DX: L89.153 Pressure ulcer of sacral region, stage 3 (principal); G93.41 Metabolic encephalopathy; G82.20 Paraplegia, unspecified; L03.90 Cellulitis, unspecified; I69.959 Hemiplegia and hemiparesis following unspecified cerebrovascular disease affecting unspecified side; N39.0 Urinary tract infection, site not specified; F20.0 Paranoid schizophrenia; J44.9 Chronic obstructive pulmonary disease, unspecified; I25.10 Atherosclerotic heart disease of native coronary artery without angina pectoris; I10 Essential (primary) hypertension; F03.90 Unspecified dementia, unspecified severity, without behavioral disturbance, psychotic disturbance, mood disturbance, and anxiety; I34.0 Nonrheumatic mitral (valve) insufficiency; K21.9 Gastro-esophageal reflux disease without esophagitis; F29 Unspecified psychosis not due to a substance or known physiological condition
CPT/HCPCS: 36415-UA; 71045-TC; 80053-TC; 81001-TC; 82948-90; 84443-TC; 84484-TC; 85025-TC; 85610-TC; 85730-TC; 87086-90; 93005; 94760; J0696; J1644; J1885; J2543; J7030; J7051; Z7610

== ENCOUNTER 2019-03-11 15:55 | Inpatient (IN) | payer MEDICARE, MEDICAID ==
--- NOTE | 2019-03-11 16:15 | ED Physician Chart ---
ED Chief Complaint/HPI - Patient Information Date Seen:: 03/11/19 Time Seen:: 16:00 Chief Complaint:: Agitation History of Present Illness:: onset x 3 days of agitation and anxiety; no report of trauma, H/As, S/T, neck pain, C/P, SOB, Abd. Pain, SIs, or urinary s/s Allergies:: Allergies Allergy/AdvReac Type Severity Reaction Status Date / Time No Known Allergies Allergy Verified 03/11/19 16:09 Historian:: Patient, EMS Review:: Nurse's Note Reviewed, Old Chart Reviewed, EMS run form Reviewed ED Review of Systems - Review of Systems General/Constitutional: No fever, No chills, No weight loss, No weakness, No diaphoresis, No edema, No loss of appetite Skin: No skin lesions, No rash, No bruising Head: No headache, No light-headedness Eyes: No loss of vision, No pain, No diplopia ENT: No earache, No nasal drainage, No sore throat, No tinnitus Neck: No neck pain, No swelling, No thyromegaly, No stiffness, No mass noted Cardio Vascular: No chest pain, No palpitations, No PND, No orthopnea, No edema Pulmonary: No SOB, No cough, No sputum, No wheezing GI: No nausea, No vomiting, No diarrhea, No pain, No melena, No hematochezia, No constipation, No hematemesis G/U: No dysuria, No frequency, No hematuria, No nacturia Musculoskeletal: No bone or joint pain, No back pain, No muscle pain Endocrine: No polyuria, No polydipsia Psychiatric: Prior psych history, No depression, Anxiety, No suicidal ideation, No homicidal ideation, No auditory hallucination, No visual hallucination Hematopoietic: No bruising, No lymphadenopathy Allergic/Immuno: No urticaria, No angioedema Neurological: No syncope, No focal symptoms, No weakness, No paresthesia, No headache, No seizure, No dizziness, Confusion, No vertigo ED Past Medical History - Past Medical History Obtainable: Yes Past Medical History: HTN, Asthma/COPD, CVA/TIA, PUD/GERD, Seizures, Dementia Family History: HTN Social History: Non Smoker, No Alcohol, No Drug Use, Single, Care Facility Surgical History: None Psychiatricy History: Bipolar, Dementia Medication: Reviewed Family Medical History - Family Member Mother History Unknown: Yes ED Physical Exam - Physical Examination General/Constitutional: Awake, Well-developed, well-nourished, Alert, No distress, GCS 15, Non-toxic appearing, Ambulatory Head: Atraumatic Eyes: Lids, conjuctiva normal, PERRL, EOMI Skin: Nl inspection, No rash, No skin lesions, No ecchymosis, Well hydrated, No lymphadenopathy ENMT: External ears, nose nl, TM canals nl, Nasal exam nl, Lips, teeth, gums nl , Oropharynx nl, Tonsils nl Neck: Nontender, Full ROM w/o pain, No JVD, No nuchal rigidity, No bruit, No mass, No stridor Respiratory: Nl effort/Exclusion, Clear to Auscultation, No Wheeze/Rhonchi/Rales Cardio Vascular: RRR, No murmur, gallop, rubs, NL S1 S2, Carotid/Femoral/Distal pulses equal bilaterally GI: No tenderness/rebounding/guarding, No organomegaly, No hernia, Normal BS's, Nondistended, No mass/bruits, No McBurney tenderness : No CVA tenderness Extremities: No tenderness or effusion, Full ROM, normal strength in all extremities, No edema, Normal digits & nails Neuro/Psych: Alert/oriented, DTR's symmetric, Normal sensory exam, Normal motor strength, Judgement/insight normal, Mood normal, Normal gait, No focal deficits Misc: Normal back, No paraspinal tenderness ED Labs/Radiology/EKG Results - Lab Results Comments:: Reviewed - EKG Interpretations Comments:: refused by pt ED Septic Shock - . Is Septic Shock (SBP<90, OR Lactate>4 mmol\L) present?: No ED Reassessment (Disposition) - Reassessment Reassessment Condition:: Improved - Diagnosis Diagnosis:: Agitation; Medical Clearance; Leukocytosis; Fever; Tachycardia; Dehydration; Hyponatremia; Hypokalemia
[2019-03-11 16:42] LABS: HEMATOCRIT 36.4 % (41.0-60); MEAN CELL VOLUME 80.9 fl (80-99); MEAN CORPUSCULAR HEMOGLOBIN 26.5 pg (26.0-30.0); MEAN CORPUSCULAR HGB CONC 32.8 pg (28.0-36.0); MEAN PLATELET VOLUME 8.3 fl; PLATELET COUNT 377 Th/cmm (150-400); RED CELL DISTRIBUTION WIDTH 14.6 % (11.5-20.0)
[2019-03-11 16:51] LABS: INR 0.99 (0.5-1.4); PROTHROMBIN TIME (TEST) 10.3 SECONDS (9.5-11.5)
[2019-03-11 17:01] LABS: WHITE BLOOD COUNT 17.8 Th/cmm (4.8-10.8)
[2019-03-11 17:02] LABS: ALB/GLOB RATIO 0.6 (1.0-1.8); ALKALINE PHOSPHATASE 94 U/L (34-104); ANION GAP 15.2 (7.0-16.0); BILIRUBIN,TOTAL 0.3 mg/dL (0.3-1.0); BUN - UREA NITROGEN 10 mg/dL (7-25); CALCIUM SERUM 8.8 mg/dL (8.6-10.3); CHLORIDE 94 mEq/L (98-107); CHOLESTEROL 95 mg/dL (<200); CREATININE - SERUM 0.6 mg/dL (0.7-1.3); GFR AFRICAN-AMERICAN > 60.0 ml/min (>90); GFR NON AFRICAN-AMERICAN > 60.0 ml/min; GLUCOSE 131 mg/dL (70-105); HDL -HIGH DENSITY LIPOPROTEIN 16 mg/dL (23-92); POTASSIUM SERUM 3.2 mEq/L (3.5-5.1); SGOT 25 U/L (13-39); SGPT/ALT 30 U/L (7-52); SODIUM SERUM 130 mEq/L (136-145); TOTAL PROTEIN,SERUM 7.7 gm/dL (6.0-8.3); TRIGLYCERIDES 96 mg/dL (<150)
[2019-03-11 17:11] LABS: ACETAMINOPHEN < 10.0 ug/mL (10.0-30.0); SALICYLATES (ASPIRIN) < 25.0 mg/L (30.0-100.0)
[2019-03-11 17:30] LABS: BAND NEUTROPHILE 1 % (0-10); LYMPHOCYTE 5 % (20-50); MONOCYTE 4 % (2-10); NEUTROPHILS 90 % (40-80)
[2019-03-11 17:33] LABS: BAND NEUTROPHILE 1 % (0-10); LYMPHOCYTE 5 % (20-50); MONOCYTE 4 % (2-10); NEUTROPHILS 90 % (40-80)
[2019-03-11] MEDS ORDERED: Potassium Chloride 20 mEq ER Tab PO ONE ×2 (17:33→17:37)
[2019-03-11] MEDS ORDERED: Sodium Chloride 0.9% 1,000 ML IV ONE (17:35)
[2019-03-11] MEDS ORDERED: cefTRIAXone 1 GM in Sodium Chloride 0.9% 50 ML IV ONE (17:37)
[2019-03-11 17:51] LABS: AMYLASE SERUM 18 U/L (29-103); LIPASE 10 U/L (11-82)
[2019-03-11] MEDS ORDERED: Ipratropium Neb 0.5 mg/2.5 mL UD HHN PRN (18:22)
[2019-03-11] MEDS ORDERED: Albuterol Nebulizer 2.5mg/3mL HHN PRN (18:22)
[2019-03-11] MEDS ORDERED: POLYETHYLENE GLYCOL 3350 17 GM PACK PO PRN (19:30)
[2019-03-11] MEDS ORDERED: Levofloxacin 500mg/100mL 500 MG/100 ML BAG IV ONE (21:00)
[2019-03-11 23:04] VITALS: BP 119/71
[2019-03-11] MEDS: D5-0.9%NS 1,000 ML IV SCH (23:14)
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
[2019-03-12] MEDS: Hydrocodone/APAP 5mg/325mg Tab PO PRN ×2 (05:56→22:47)
[2019-03-12 06:38] LABS: HEMOGLOBIN 10.2 gm/dL (12-16); MEAN CORPUSCULAR HEMOGLOBIN 26.8 pg (26.0-30.0); MEAN CORPUSCULAR HGB CONC 33.1 pg (28.0-36.0); MEAN PLATELET VOLUME 8.8 fl; RED BLOOD COUNT 3.81 Mil/cmm (4.30-5.70); RED CELL DISTRIBUTION WIDTH 14.8 % (11.5-20.0)
[2019-03-12 06:48] LABS: WHITE BLOOD COUNT 15.3 Th/cmm (4.8-10.8)
[2019-03-12 06:51] LABS: HEMATOCRIT 30.8 % (41.0-60); PLATELET COUNT 255 Th/cmm (150-400)
[2019-03-12 07:06] LABS: ANION GAP 14.2 (7.0-16.0); BUN - UREA NITROGEN 16 mg/dL (7-25); CALCIUM SERUM 8.2 mg/dL (8.6-10.3); CARBON DIOXIDE 25.2 mEq/L (21.0-31.0); CHLORIDE 101 mEq/L (98-107); CREATININE - SERUM 0.6 mg/dL (0.7-1.3); GFR AFRICAN-AMERICAN > 60.0 ml/min (>90); GFR NON AFRICAN-AMERICAN > 60.0 ml/min; GLUCOSE 116 mg/dL (70-105); MAGNESIUM 1.8 mg/dL (1.9-2.7); POTASSIUM SERUM 3.4 mEq/L (3.5-5.1); SODIUM SERUM 137 mEq/L (136-145)
[2019-03-12 07:56] LABS: LYMPHOCYTE 6 % (20-50); MONOCYTE 9 % (2-10); NEUTROPHILS 85 % (40-80)
[2019-03-12 07:57] LABS: PLATELET ESTIMATE ADEQUATE (NORMAL)
[2019-03-12] MEDS: D5-0.9%NS 1,000 ML IV SCH ×3 (08:30→21:30)
[2019-03-12] MEDS: Aspirin 81mg Chewable Tab PO SCH (09:54)
[2019-03-12] MEDS: Pantoprazole 40 mg EC Tab PO SCH (09:54)
[2019-03-12] MEDS: Multivitamin w/ Minerals Tab PO SCH (09:55)
[2019-03-12] MEDS ORDERED: Potassium Chloride 20 mEq ER Tab PO ONE (11:54)
[2019-03-12] MEDS ORDERED: Mag Sulfate 2gm/50mL Premix 2 GM/50 ML BAG IV ONE (11:54)
--- NOTE | 2019-03-12 11:57 | Internal Medicine Prog Note ---
Internal Medicine Subjective - Subjective Patient seen and examined:: with staff, chart reviewed Patient is:: awake, verbal, interactive Patient Complaints of:: congestion Per staff patient has:: no adverse event, no episodes of fall, poor appetite, tolerating meds Internal Medicine Objective - Results Result Diagrams: 03/12/19 05:33 03/12/19 05:33 Recent Labs: Laboratory Last Values WBC 15.3 Th/cmm (4.8-10.8) H 03/12/19 05:33 RBC 3.81 Mil/cmm (4.30-5.70) L 03/12/19 05:33 Hgb 10.2 gm/dL (12-16) L 03/12/19 05:33 Hct 30.8 % (41.0-60) L D 03/12/19 05:33 MCV 81.0 fl (80-99) 03/12/19 05:33 MCH 26.8 pg (26.0-30.0) 03/12/19 05:33 MCHC Differential 33.1 pg (28.0-36.0) 03/12/19 05:33 RDW 14.8 % (11.5-20.0) 03/12/19 05:33 Plt Count 255 Th/cmm (150-400) D 03/12/19 05:33 MPV 8.8 fl 03/12/19 05:33 Add Manual Diff YES 03/12/19 05:33 Neutrophils % [employer] 03/12/19 05:33 Band Neutrophils % 1 % (0-10) 03/11/19 16:33 Lymphocytes % [employer] 03/12/19 05:33 Monocytes % [employer] 03/12/19 05:33 Eosinophils % [employer] 03/12/19 05:33 Basophils % [employer] 03/12/19 05:33 Neutrophils (Manual) 85 % (40-80) H 03/12/19 05:33 Lymphocytes 6 % (20-50) L 03/12/19 05:33 Monocytes 9 % (2-10) 03/12/19 05:33 Platelet Estimate ADEQUATE (NORMAL) 03/12/19 05:33 PT 10.3 SECONDS (9.5-11.5) 03/11/19 16:33 INR 0.99 (0.5-1.4) 03/11/19 16:33 PTT (Actin FS) 34.5 SECONDS (26.0-38.0) 03/11/19 16:33 Sodium 137 mEq/L (136-145) 03/12/19 05:33 Potassium 3.4 mEq/L (3.5-5.1) L 03/12/19 05:33 Chloride 101 mEq/L (98-107) 03/12/19 05:33 Carbon Dioxide 25.2 mEq/L (21.0-31.0) 03/12/19 05:33 Anion Gap 14.2 (7.0-16.0) 03/12/19 05:33 BUN 16 mg/dL (7-25) 03/12/19 05:33 Creatinine 0.6 mg/dL (0.7-1.3) L 03/12/19 05:33 Est GFR ( Amer) > 60.0 ml/min (>90) 03/12/19 05:33 Est GFR (Non-Af Amer) > 60.0 ml/min 03/12/19 05:33 BUN/Creatinine Ratio 26.7 03/12/19 05:33 Glucose 116 mg/dL (70-105) H 03/12/19 05:33 Whole Bld Lactic Acid 0.94 mmol/L (0.60-1.99) 03/11/19 16:33 Calcium 8.2 mg/dL (8.6-10.3) L 03/12/19 05:33 Magnesium 1.8 mg/dL (1.9-2.7) L 03/12/19 05:33 Total Bilirubin 0.3 mg/dL (0.3-1.0) 03/11/19 16:33 AST 25 U/L (13-39) 03/11/19 16:33 ALT 30 U/L (7-52) 03/11/19 16:33 Alkaline Phosphatase 94 U/L (34-104) 03/11/19 16:33 Creatine Kinase 31 U/L (30-223) 03/11/19 16:33 Troponin I 0.02 ng/mL (0.01-0.05) 03/11/19 16:33 Total Protein 7.7 gm/dL (6.0-8.3) 03/11/19 16:33 Albumin 3.0 gm/dL (4.2-5.5) L 03/11/19 16:33 Globulin 4.7 gm/dL 03/11/19 16:33 Albumin/Globulin Ratio 0.6 (1.0-1.8) L 03/11/19 16:33 Triglycerides 96 mg/dL (<150) 03/11/19 16:33 Cholesterol 95 mg/dL (<200) 03/11/19 16:33 LDL Cholesterol Direct 65 mg/dL (75-193) L 03/11/19 16:33 HDL Cholesterol 16 mg/dL (23-92) L 03/11/19 16:33 Amylase 18 U/L (29-103) L 03/11/19 16:33 Lipase 10 U/L (11-82) L 03/11/19 16:33 TSH 1.54 uIU/ml (0.34-5.60) 03/11/19 16:33 Salicylates < 25.0 mg/L (30.0-100.0) L 03/11/19 16:33 Acetaminophen < 10.0 ug/mL (10.0-30.0) L 03/11/19 16:33 Ethyl Alcohol < 10 mg/dL (0-10) 03/11/19 16:33 - Physical Exam Vitals and I&O: Vital Signs Temp 97.7 F 03/12/19 07:58 Pulse 85 03/12/19 09:56 Resp 18 03/12/19 07:58 BP 110/61 03/12/19 09:56 Pulse Ox 97 03/12/19 07:58 Intake & Output 03/11/19 03/12/19 03/12/19 18:59 06:59 18:59 Intake Total 60 Output Total 100 Balance -40 Weight (lbs) 88.904 kg 98.883 kg Intake: Oral 60 Output: Stool 100 Other: # Voids 1 Stool Characteristics Soft Soft Formed Formed Weight Source Estimated Bedscale Active Medications: Current Medications Acetaminophen (Tylenol) 650 mg PO Q12H PRN PRN Reason: Pain (Mild) Stop: 05/10/19 18:16 Last Admin: 03/12/19 09:54 Dose: 650 mg Acetaminophen/Hydrocodone Bitart ([place] 5mg/325mg) 1 tab PO Q6H PRN PRN Reason: Pain (Moderate) Stop: 05/10/19 18:16 Last Admin: 03/12/19 05:56 Dose: 1 tab Albuterol Sulfate (Albuterol 2.5mg/3ml Neb Ud) 2.5 mg HHN Q2HRT PRN PRN Reason: Shortness of Breath or Wheeze Stop: 05/10/19 18:21 Ascorbic Acid (Vitamin C) 500 mg PO DAILY SILVIO Stop: 05/11/19 08:59 Last Admin: 03/12/19 09:54 Dose: 500 mg Aspirin (Aspirin Chewable) 81 mg PO DAILY SILVIO Stop: 05/11/19 08:59 Last Admin: 03/12/19 09:54 Dose: 81 mg Bisacodyl (Dulcolax 5 Mg Ec Tab) 10 mg PO Q72H PRN PRN Reason: Constipation Stop: 05/10/19 18:16 Docusate Sodium (Colace) 250 mg PO BID PRN PRN Reason: Constipation Stop: 05/10/19 18:16 Hydrochlorothiazide (Hctz) 25 mg PO DAILY SILVIO Stop: 05/11/19 08:59 Last Admin: 03/12/19 09:55 Dose: Not Given Dextrose/Sodium Chloride (D5-0.9%Ns) 1,000 mls @ 80 mls/hr IV .[id number] SILVIO Stop: 05/10/19 19:59 Last Admin: 03/11/19 23:14 Dose: 80 mls/hr Levofloxacin (Levaquin Pb) 500 mg in 100 mls @ 100 mls/hr IV Q24HR SILVIO Stop: 05/11/19 20:59 Magnesium Sulfate (Magnesium Sulfate Premix) 2 gm in 50 mls @ 25 mls/hr IV X1 ONE Stop: 03/12/19 13:53 Ipratropium [place] (Atrovent Neb 0.5mg/2.5ml) 0.5 mg HHN Q2HRT PRN PRN Reason: Shortness of Breath or Wheeze Stop: 05/10/19 18:21 Lorazepam (Ativan) 1 mg IV Q4H PRN; Protocol PRN Reason: Seizure Stop: 05/10/19 18:21 Losartan Potassium (Cozaar) 25 mg PO DAILY SILVIO Stop: 05/11/19 08:59 Last Admin: 03/12/19 09:56 Dose: Not Given Olanzapine (Zyprexa) 20 mg PO DAILY SILVIO; Protocol Stop: 05/11/19 08:59 Last Admin: 03/12/19 09:54 Dose: 20 mg Pantoprazole Sodium (Protonix) 40 mg PO QDAC [facility] Stop: 05/11/19 07:29 Last Admin: 03/12/19 09:54 Dose: 40 mg Polyethylene Glycol (Miralax) 17 gm PO Q72H PRN PRN Reason: Constipation Stop: 05/10/19 19:29 Potassium Chloride (Klor-Con) 20 meq PO X1 ONE Stop: 03/12/19 11:55 Quetiapine Fumarate (Seroquel) 25 mg PO BID [facility]; Protocol Stop: 05/11/19 08:59 Last Admin: 03/12/19 09:54 Dose: 25 mg Senna (Senna) 8.6 mg PO HS [facility] Stop: 05/10/19 20:59 Last Admin: 03/11/19 23:15 Dose: Not Given Valproate Sodium (Depakene) 250 mg PO Q8HR [facility] Stop: 05/10/19 20:59 Last Admin: 03/12/19 05:56 Dose: 250 mg General: alert HEENT: NC/AT, PERRLA, EOMI Neck: Supple, No JVD Lungs: congested Cardiovascular: RRR, Normal S1, Normal S2 Abdomen: soft, globular, positive bowel sound Extremities: excoriation, ulcers stage 3 Neurological: no change, bedbound - Procedures Procedures: Procedures Procedure Code Date OTHER GROUP THERAPY 94.44 03/29/12 RECREATIONAL THERAPY 93.81 09/06/11 Internal Medicine Assmt/Plan - Assessment Assessment: ASSESSMENT AND PLAN: Sepsis, leukocytosis, probable pneumonia, hypertension, history of stroke, dementia, and psych disorder. decub ulcer - Plan Plan: PLAN: Continue IV antibiotic, oxygen, and bronchodilator treatments. We will correct the patient's white count. We will also refer the patient to Psychiatry. Continue with current care with followup consult and recommendations. will refer to surgery as well
--- NOTE | 2019-03-12 12:57 | Diagnostic Imaging Report ---
Portable chest x-ray History: Pain Allowing for portable technique the heart size is normal. No focal pulmonary parenchymal processes. No hilar or mediastinal abnormalities. Impression: No acute abnormalities.
--- NOTE | 2019-03-12 13:00 | Diagnostic Imaging Report ---
Bilateral lower extremity Doppler venous ultrasound exam HISTORY: Pain/swelling Sonographic sector images were obtained through the deep venous systems of both legs. Associated Doppler data was obtained. The exam demonstrates patency of the common femoral, superficial femoral, popliteal, and posterior tibial veins bilaterally. Specifically, no thrombus is seen. There are normal compressibility and augmentation responses. IMPRESSION: Negative exam for deep vein thrombophlebitis.
[2019-03-12 15:19] LABS: URINE SOURCE CATH
[2019-03-12 15:24] LABS: URINE BILIRUBIN NEGATIVE (NEGATIVE); URINE BLOOD MODERATE (NEGATIVE); URINE GLUCOSE (UA) NEGATIVE (NEGATIVE); URINE KETONE TRACE mg/dL (NEGATIVE); URINE LEUKOCYTE ESTERASE LARGE (NEGATIVE); URINE MICROSCOPIC INDICATED? YES; URINE NITRATE POSITIVE (NEGATIVE); URINE PROTEIN 30 mg/dL (NEGATIVE); URINE UROBILINOGEN 0.2 E.U./dL (0.2 - 1.0)
[2019-03-12 15:28] LABS: URINE CLARITY CLOUDY (CLEAR); URINE COLOR YELLOW
[2019-03-12 15:35] LABS: AMPHETAMINE URINE NEGATIVE (NEGATIVE); BARBITURATES URINE NEGATIVE (NEGATIVE); BENZODIAZEPINES QUAL URINE POSITIVE (NEGATIVE); CANNABINOID THC NEGATIVE (NEGATIVE); COCAINE METABOLITE QUAL URINE NEGATIVE (NEGATIVE); METHADONE URINE NEGATIVE (NEGATIVE); METHAMPHETAMINES QUAL URINE NEGATIVE (NEGATIVE); OPIATES (MORPHINE) QUAL. URINE POSITIVE (NEGATIVE); PHENCYCLIDINE (PCP) URINE NEGATIVE (NEGATIVE); TRICYCLICS (TCA) QUAL. URINE POSITIVE (NEGATIVE); URINE BACTERIA MANY /hpf (NONE SEEN); URINE EPITHELIAL CELLS FEW /lpf (FEW); URINE WBC 50-100 /hpf (0-5)
[2019-03-12] MEDS: Venelex 60gm Tube TP SCH (17:50)
[2019-03-12] MEDS: Levofloxacin 500mg/100mL 500 MG/100 ML BAG IV SCH (22:07)
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
[2019-03-13] MEDS: Hydrocodone/APAP 5mg/325mg Tab PO PRN ×3 (05:22→20:21)
[2019-03-13 05:36] LABS: % BASOPHILS 0.2 % (0.0-2.0); % EOSINOPHILS 2.5 % (0.0-5.0); % LYMPHOCYTES 16.2 % (20.0-50.0); % MONOCYTES 10.3 % (2.0-10.0); % NEUTROPHILS 70.8 % (40.0-80.0); EOSINOPHILE ABSOLUTE 0.3 Th/cmm (0.1-0.4); HEMATOCRIT 30.7 % (41.0-60); MEAN CELL VOLUME 80.8 fl (80-99); MEAN CORPUSCULAR HEMOGLOBIN 26.4 pg (26.0-30.0); MEAN CORPUSCULAR HGB CONC 32.6 pg (28.0-36.0); MEAN PLATELET VOLUME 8.4 fl; MONOCYTE ABSOLUTE 1.3 Th/cmm (0.3-1.0); NEUTROPHILE ABSOLUTE 8.9 Th/cmm (1.8-8.0); RED BLOOD COUNT 3.79 Mil/cmm (4.30-5.70); RED CELL DISTRIBUTION WIDTH 15.1 % (11.5-20.0); WHITE BLOOD COUNT 12.5 Th/cmm (4.8-10.8)
[2019-03-13 05:38] LABS: PLATELET COUNT 412 Th/cmm (150-400)
[2019-03-13 05:56] LABS: ANION GAP 10.8 (7.0-16.0); BUN - UREA NITROGEN 11 mg/dL (7-25); CALCIUM SERUM 8.4 mg/dL (8.6-10.3); CARBON DIOXIDE 27.7 mEq/L (21.0-31.0); CHLORIDE 103 mEq/L (98-107); CREATININE - SERUM 0.7 mg/dL (0.7-1.3); GFR AFRICAN-AMERICAN > 60.0 ml/min (>90); GFR NON AFRICAN-AMERICAN > 60.0 ml/min; GLUCOSE 105 mg/dL (70-105); MAGNESIUM 2.2 mg/dL (1.9-2.7); POTASSIUM SERUM 3.5 mEq/L (3.5-5.1); SODIUM SERUM 138 mEq/L (136-145)
[2019-03-13] MEDS: Aspirin 81mg Chewable Tab PO SCH (09:46)
[2019-03-13] MEDS: Pantoprazole 40 mg EC Tab PO SCH (09:46)
[2019-03-13] MEDS: Multivitamin w/ Minerals Tab PO SCH (09:46)
--- NOTE | 2019-03-13 10:38 | Internal Medicine Prog Note ---
Internal Medicine Subjective - Subjective Patient seen and examined:: with staff, chart reviewed Patient is:: awake, verbal, interactive Patient Complaints of:: congestion Per staff patient has:: no adverse event, no episodes of fall, poor appetite, tolerating meds Internal Medicine Objective - Results Result Diagrams: 03/13/19 05:10 03/13/19 05:10 Recent Labs: Laboratory Last Values WBC 12.5 Th/cmm (4.8-10.8) H 03/13/19 05:10 RBC 3.79 Mil/cmm (4.30-5.70) L 03/13/19 05:10 Hgb 10.0 gm/dL (12-16) L 03/13/19 05:10 Hct 30.7 % (41.0-60) L 03/13/19 05:10 MCV 80.8 fl (80-99) 03/13/19 05:10 MCH 26.4 pg (26.0-30.0) 03/13/19 05:10 MCHC Differential 32.6 pg (28.0-36.0) 03/13/19 05:10 RDW 15.1 % (11.5-20.0) 03/13/19 05:10 Plt Count 412 Th/cmm (150-400) H D 03/13/19 05:10 MPV 8.4 fl 03/13/19 05:10 Add Manual Diff YES 03/12/19 05:33 Neutrophils % 70.8 % (40.0-80.0) 03/13/19 05:10 Band Neutrophils % 1 % (0-10) 03/11/19 16:33 Lymphocytes % 16.2 % (20.0-50.0) L 03/13/19 05:10 Monocytes % 10.3 % (2.0-10.0) H 03/13/19 05:10 Eosinophils % 2.5 % (0.0-5.0) 03/13/19 05:10 Basophils % 0.2 % (0.0-2.0) 03/13/19 05:10 Neutrophils (Manual) 85 % (40-80) H 03/12/19 05:33 Lymphocytes 6 % (20-50) L 03/12/19 05:33 Monocytes 9 % (2-10) 03/12/19 05:33 Platelet Estimate ADEQUATE (NORMAL) 03/12/19 05:33 PT 10.3 SECONDS (9.5-11.5) 03/11/19 16:33 INR 0.99 (0.5-1.4) 03/11/19 16:33 PTT (Actin FS) 34.5 SECONDS (26.0-38.0) 03/11/19 16:33 Sodium 138 mEq/L (136-145) 03/13/19 05:10 Potassium 3.5 mEq/L (3.5-5.1) 03/13/19 05:10 Chloride 103 mEq/L (98-107) 03/13/19 05:10 Carbon Dioxide 27.7 mEq/L (21.0-31.0) 03/13/19 05:10 Anion Gap 10.8 (7.0-16.0) 03/13/19 05:10 BUN 11 mg/dL (7-25) 03/13/19 05:10 Creatinine 0.7 mg/dL (0.7-1.3) 03/13/19 05:10 Est GFR ( Amer) > 60.0 ml/min (>90) 03/13/19 05:10 Est GFR (Non-Af Amer) > 60.0 ml/min 03/13/19 05:10 BUN/Creatinine Ratio 15.7 03/13/19 05:10 Glucose 105 mg/dL (70-105) 03/13/19 05:10 Whole Bld Lactic Acid 0.94 mmol/L (0.60-1.99) 03/11/19 16:33 Calcium 8.4 mg/dL (8.6-10.3) L 03/13/19 05:10 Magnesium 2.2 mg/dL (1.9-2.7) 03/13/19 05:10 Total Bilirubin 0.3 mg/dL (0.3-1.0) 03/11/19 16:33 AST 25 U/L (13-39) 03/11/19 16:33 ALT 30 U/L (7-52) 03/11/19 16:33 Alkaline Phosphatase 94 U/L (34-104) 03/11/19 16:33 Creatine Kinase 31 U/L (30-223) 03/11/19 16:33 Troponin I 0.02 ng/mL (0.01-0.05) 03/11/19 16:33 Total Protein 7.7 gm/dL (6.0-8.3) 03/11/19 16:33 Albumin 3.0 gm/dL (4.2-5.5) L 03/11/19 16:33 Globulin 4.7 gm/dL 03/11/19 16:33 Albumin/Globulin Ratio 0.6 (1.0-1.8) L 03/11/19 16:33 Triglycerides 96 mg/dL (<150) 03/11/19 16:33 Cholesterol 95 mg/dL (<200) 03/11/19 16:33 LDL Cholesterol Direct 65 mg/dL (75-193) L 03/11/19 16:33 HDL Cholesterol 16 mg/dL (23-92) L 03/11/19 16:33 Amylase 18 U/L (29-103) L 03/11/19 16:33 Lipase 10 U/L (11-82) L 03/11/19 16:33 TSH 1.54 uIU/ml (0.34-5.60) 03/11/19 16:33 Urine Source CATH 03/12/19 15:17 Urine Color YELLOW 03/12/19 15:17 Urine Clarity CLOUDY (CLEAR) 03/12/19 15:17 Urine pH 6.0 (4.6 - 8.0) 03/12/19 15:17 Ur Specific [place] 1.015 (1.005-1.030) 03/12/19 15:17 Urine Protein 30 mg/dL (NEGATIVE) H 03/12/19 15:17 Urine Glucose (UA) NEGATIVE mg/dL (NEGATIVE) 03/12/19 15:17 Urine Ketones TRACE mg/dL (NEGATIVE) 03/12/19 15:17 Urine Blood MODERATE (NEGATIVE) H 03/12/19 15:17 Urine Nitrate POSITIVE (NEGATIVE) H 03/12/19 15:17 Urine Bilirubin NEGATIVE (NEGATIVE) 03/12/19 15:17 Urine Urobilinogen 0.2 E.U./dL (0.2 - 1.0) 03/12/19 15:17 Ur Leukocyte Esterase LARGE (NEGATIVE) H 03/12/19 15:17 Urine RBC 5-10 /hpf (0-5) H 03/12/19 15:17 Urine WBC 50-100 /hpf (0-5) H 03/12/19 15:17 Ur Epithelial Cells FEW /lpf (FEW) 03/12/19 15:17 Urine Bacteria MANY /hpf (NONE SEEN) H 03/12/19 15:17 Salicylates < 25.0 mg/L (30.0-100.0) L 03/11/19 16:33 Urine Opiates Screen POSITIVE (NEGATIVE) H 03/12/19 15:17 Urine Methadone Screen NEGATIVE (NEGATIVE) 03/12/19 15:17 Acetaminophen < 10.0 ug/mL (10.0-30.0) L 03/11/19 16:33 Ur Barbiturates Screen NEGATIVE (NEGATIVE) 03/12/19 15:17 Ur Tricyclics Screen POSITIVE (NEGATIVE) H 03/12/19 15:17 Ur Phencyclidine Scrn NEGATIVE (NEGATIVE) 03/12/19 15:17 Amphetamines Screen NEGATIVE (NEGATIVE) 03/12/19 15:17 U Methamphetamines Scrn NEGATIVE (NEGATIVE) 03/12/19 15:17 U Benzodiazepines Scrn POSITIVE (NEGATIVE) H 03/12/19 15:17 U Cocaine Metab Screen NEGATIVE (NEGATIVE) 03/12/19 15:17 U Cannabinoids Screen NEGATIVE (NEGATIVE) 03/12/19 15:17 Ethyl Alcohol < 10 mg/dL (0-10) 03/11/19 16:33 RPR NONREACTIVE (NONREACTIVE) 03/11/19 16:33 - Physical Exam Vitals and I&O: Vital Signs Temp 97.8 F 03/13/19 07:44 Pulse 77 03/13/19 09:55 Resp 20 03/13/19 07:44 BP 108/78 03/13/19 09:55 Pulse Ox 97 03/13/19 07:44 Intake & Output 03/12/19 03/13/19 03/13/19 18:59 06:59 18:59 Intake Total 1480 500 Balance 1480 500 Weight (lbs) 98.883 kg 97.386 kg Intake: Intake, IV Amount 1000 D5-0.9%Ns 1,000 ml @ 80 1000 mls/hr IV .[id number] [facility] Rx #:[id number] Oral 480 500 Other: # Voids 3 # Bowel Movements 2 2 Stool Characteristics Soft Soft Formed Formed Brown Brown Weight Source Bedscale Bedscale Active Medications: Current Medications Acetaminophen (Tylenol) 650 mg PO Q12H PRN PRN Reason: Pain (Mild) Stop: 05/10/19 18:16 Last Admin: 03/12/19 09:54 Dose: 650 mg Acetaminophen/Hydrocodone Bitart (Tracy 5mg/325mg) 1 tab PO Q6H PRN PRN Reason: Pain (Moderate) Stop: 05/10/19 18:16 Last Admin: 03/13/19 05:22 Dose: 1 tab Albuterol Sulfate (Albuterol 2.5mg/3ml Neb Ud) 2.5 mg HHN Q2HRT PRN PRN Reason: Shortness of Breath or Wheeze Stop: 05/10/19 18:21 Ascorbic Acid (Vitamin C) 500 mg PO DAILY [facility] Stop: 05/11/19 08:59 Last Admin: 03/13/19 09:46 Dose: 500 mg Aspirin (Aspirin Chewable) 81 mg PO DAILY [facility] Stop: 05/11/19 08:59 Last Admin: 03/13/19 09:46 Dose: 81 mg Bisacodyl (Dulcolax 5 Mg Ec Tab) 10 mg PO Q72H PRN PRN Reason: Constipation Stop: 05/10/19 18:16 [place] Oil/[place] Balsam/Trypsin (Venelex) 1 appl TP DAILY [facility] Stop: 05/11/19 15:14 Last Admin: 03/12/19 17:50 Dose: 1 appl Docusate Sodium (Colace) 250 mg PO BID PRN PRN Reason: Constipation Stop: 05/10/19 18:16 Hydrochlorothiazide (Hctz) 25 mg PO DAILY [facility] Stop: 05/11/19 08:59 Last Admin: 03/13/19 09:54 Dose: Not Given Dextrose/Sodium Chloride (D5-0.9%Ns) 1,000 mls @ 80 mls/hr IV .[id number] [facility] Stop: 05/10/19 19:59 Last Admin: 03/12/19 21:30 Dose: Not Given Levofloxacin (Levaquin Pb) 500 mg in 100 mls @ 100 mls/hr IV Q24HR [facility] Stop: 05/11/19 20:59 Last Admin: 03/12/19 22:07 Dose: 100 mls/hr Ipratropium [place] (Atrovent Neb 0.5mg/2.5ml) 0.5 mg HHN Q2HRT PRN PRN Reason: Shortness of Breath or Wheeze Stop: 05/10/19 18:21 Lorazepam (Ativan) 1 mg IV Q4H PRN; Protocol PRN Reason: Seizure Stop: 05/10/19 18:21 Losartan Potassium (Cozaar) 25 mg PO DAILY [facility] Stop: 05/11/19 08:59 Last Admin: 03/13/19 09:55 Dose: Not Given Olanzapine (Zyprexa) 20 mg PO HS [facility]; Protocol Stop: 05/12/19 20:59 Pantoprazole Sodium (Protonix) 40 mg PO QDAC [facility] Stop: 05/11/19 07:29 Last Admin: 03/13/19 09:46 Dose: 40 mg Polyethylene Glycol (Miralax) 17 gm PO Q72H PRN PRN Reason: Constipation Stop: 05/10/19 19:29 Quetiapine Fumarate (Seroquel) 25 mg PO BID [facility]; Protocol Stop: 05/11/19 08:59 Last Admin: 03/13/19 09:46 Dose: 25 mg Senna (Senna) 8.6 mg PO HS [facility] Stop: 05/10/19 20:59 Last Admin: 03/12/19 21:16 Dose: 8.6 mg Valproate Sodium (Depakene) 250 mg PO Q8HR [facility] Stop: 05/10/19 20:59 Last Admin: 03/13/19 05:21 Dose: 250 mg General: alert HEENT: NC/AT, PERRLA, EOMI Neck: Supple, No JVD Lungs: congested Cardiovascular: RRR, Normal S1, Normal S2 Abdomen: soft, globular, positive bowel sound Extremities: excoriation, ulcers stage 3 Neurological: no change, bedbound - Procedures Procedures: Procedures Procedure Code Date OTHER GROUP THERAPY 94.44 03/29/12 RECREATIONAL THERAPY 93.81 09/06/11 Internal Medicine Assmt/Plan - Assessment Assessment: ASSESSMENT AND PLAN: Sepsis, leukocytosis, probable pneumonia, hypertension, history of stroke, dementia, and psych disorder. decub ulcer hip pain - Plan Plan: PLAN: Continue IV antibiotic, oxygen, and bronchodilator treatments. We will correct the patient's white count. We will also refer the patient to Psychiatry. Continue with current care with followup consult and recommendations. will refer to surgery as well xray Nutritional Asmnt/Malnutr-PDOC - Dietary Evaluation Malnutrition Findings (Please click <Entered> for more info): Nutritional Asmnt/Malnutrition Start: 03/12/19 16: 27 Text: Status: Complete Freq: Protocol: Document 03/12/19 16:28 LCHENG (Rec: 03/12/19 16:40 [email or web address]) Nutritional Asmnt/Malnutrition Patient General Information Nutritional Screening High Risk Consult Diagnosis possible sepsis Pertinent Medical Hx/Surgical Hx HTN, asthma/COPD, CVA/TIA, PUD /GERD, seizures, dementia, bipolar Subjective Information Pt seen sleeping in bed covered with blanket at time of visit. Consult received for wound. Current Diet Order/ Nutrition Support regular Pertinent Medications vit C, colace, D5-0.9%ns, levquin, protonix, miralax, seroquel Pertinent Labs 03/12 K 3.4, Cr 0.6, glucose 116, Ca 8.2, Mg 1.8 Nutritional Hx/Data Height 1.65 m Height (Calculated Centimeters) 165.1 Current Weight (lbs) 98.883 kg Weight (Calculated Kilograms) 98.9 Weight (Calculated Grams) 23793.1 [place] Body Weight 136 Body Mass Index (BMI) 36.2 Weight Status Obese GI Symptoms GI Symptoms None Last BM not indicated Difficult in: None Skin Integrity/Comment: stage IV pressure ulcer to left buttock per wound care note. Gee 12. Estimated Nutritional Goals BEE in Kcals: Adj wt of IBW Calories/Kcals/Kg 25-30 Kcals Calculated 3762-0211 Protein: Adj wt of IBW Protein g/k.2 Protein Calculated 71 Fluid: ml 1775-2130ml (1ml/kcal) Nutritional Problem 1. Problem Problem increased nutrition needs Etiology impaired skin integrity Signs/Symptoms: stage IV pressure ulcer Malnutrition Alert Is there a minimum of two criteria No selected? Query Text:Check all the applicable criteria. A minimum of two criteria are recommended for diagnosis of either severe or non-severe malnutrition. Malnutrition Related to Morbid Obesity Malnutrition related to morbid obesity No Intervention/Recommendation Comments 1. Continue with regular diet as ordered. Add Gilberto BID for wound healing. 2. Monitor PO intake, wt, labs and skin integrity 3. F/U as high risk in 2-3 days Expected Outcomes/Goals Expected Outcomes/Goals 1. PO intake to meet at least 75% of nutritional needs. 2. Wt stability, skin to remain intact, labs to approach WNL.
--- NOTE | 2019-03-13 13:22 | Diagnostic Imaging Report ---
Exam: Hip joints bilaterally. HISTORY: Pain Findings: Frontal examination hip joints bilaterally reviewed. The study demonstrates degenerative osteoarthritis with narrowing of joint spaces. There is no evidence of fracture dislocation subluxation. The visualized pelvis is intact. IMPRESSION : Mild degenerative osteoarthritis joints bilaterally.
[2019-03-13] MEDS: D5-0.9%NS 1,000 ML IV SCH ×2 (13:47→21:54)
[2019-03-13] MEDS: Venelex 60gm Tube TP SCH (13:48)
[2019-03-13] MEDS ORDERED: Probiotic Screen MC PRN (15:39)
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
[2019-03-13] MEDS: Levofloxacin 500mg/100mL 500 MG/100 ML BAG IV SCH (21:00)
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
[2019-03-14] MEDS: Pantoprazole 40 mg EC Tab PO SCH (08:39)
[2019-03-14] MEDS: Multivitamin w/ Minerals Tab PO SCH (08:39)
[2019-03-14] MEDS: Aspirin 81mg Chewable Tab PO SCH (08:39)
[2019-03-14] MEDS: Hydrocodone/APAP 5mg/325mg Tab PO PRN ×2 (08:40→17:25)
[2019-03-14] MEDS: Venelex 60gm Tube TP SCH (08:45)
[2019-03-14] MEDS ORDERED: Lactobacillus Rhamnosus GG 15 Billion CFU CAP.SPRINK PO SCH (09:00)
--- NOTE | 2019-03-14 19:15 | Discharge Summary ---
DATE OF DISCHARGE: 03/14/2019 DATE OF ADMISSION: 03/11/2019 DATE OF DISCHARGE: 03/14/2019 ADMITTING DIAGNOSES: Sepsis, leukocytosis, probable pneumonia, hypertension, history of stroke, dementia, and psychosis. DISCHARGE DIAGNOSES: Hypertension, history of stroke, dementia, psychosis. HISTORY OF PRESENT ILLNESS: A 64-year-old male with a history of hypertension, asthma as well as COPD, stroke, seizure, and dementia, admitted from nursing facility secondary to cough, congestion, increasing agitation. The patient was supposed to be sent to the Geropsych Unit, but was not able to be cleared medically. Chest x-ray showed possible pneumonia. PHYSICAL EXAMINATION: GENERAL: Elderly male, awake, alert, no apparent distress. VITAL SIGNS: Stable. HEAD: Normocephalic, atraumatic. NECK: Supple. No mass. LUNGS: Clear bilaterally. HEART: Regular rate and rhythm. ABDOMEN: Soft and nontender. HOSPITAL COURSE DURING HOSPITALIZATION: The patient was admitted to the med/surg unit. The patient was treated with IV antibiotics for pneumonia as well as gentle IV fluids for hydration. The patient was also seen by psychiatrist during hospitalization. The patient is medically cleared for discharge. CONDITION UPON DISCHARGE: Fair. DISPOSITION: [place]. JOB# [id number]
--- NOTE | 2019-03-15 00:22 | Progress Notes ---
DATE: Covering for Dr. Olivares. SUBJECTIVE: The patient was resting in bed covered from head to toe. Upon verbal stimulation, the patient removed the sheet from his face. The patient was calm and cooperative. When asked why he is here, the patient was not able to give any answer. The patient stated that he wants to go home. When asked where he lives, the patient stated "nowhere." The patient complained of some pain in his leg. The patient reported that he is eating and sleeping okay. The patient stated that he takes his medication. The patient denied any auditory or visual hallucination or delusion. OBJECTIVE: The patient was calm and cooperative. The staff reported that the patient is on psychotropic medications. Staff reported that the patient was agitated yesterday because he wanted to go home. Staff reported that the patient will be discharged today back to the [facility]. ASSESSMENT: The patient appears to be doing okay on current medications. The patient will be discharged today. PLAN: We will continue current medications and continue psychotropic medications. The patient will be followed by Dr. Olivares at [facility]. JOB# [id number]
[2019-03-15] MEDS: Hydrocodone/APAP 5mg/325mg Tab PO PRN ×2 (04:25→21:31)
[2019-03-15] MEDS: Pantoprazole 40 mg EC Tab PO SCH (06:43)
[2019-03-15] MEDS: Multivitamin w/ Minerals Tab PO SCH (08:08)
[2019-03-15] MEDS: Aspirin 81mg Chewable Tab PO SCH (08:08)
--- NOTE | 2019-03-15 16:05 | Internal Medicine Prog Note ---
Internal Medicine Subjective - Subjective Service Date: 03/15/19 Patient is:: awake, verbal, interactive Patient Complaints of:: congestion Per staff patient has:: no adverse event, no episodes of fall, poor appetite, tolerating meds Internal Medicine Objective - Results Result Diagrams: 03/13/19 05:10 03/13/19 05:10 Recent Labs: Laboratory Last Values WBC 12.5 Th/cmm (4.8-10.8) H 03/13/19 05:10 RBC 3.79 Mil/cmm (4.30-5.70) L 03/13/19 05:10 Hgb 10.0 gm/dL (12-16) L 03/13/19 05:10 Hct 30.7 % (41.0-60) L 03/13/19 05:10 MCV 80.8 fl (80-99) 03/13/19 05:10 MCH 26.4 pg (26.0-30.0) 03/13/19 05:10 MCHC Differential 32.6 pg (28.0-36.0) 03/13/19 05:10 RDW 15.1 % (11.5-20.0) 03/13/19 05:10 Plt Count 412 Th/cmm (150-400) H D 03/13/19 05:10 MPV 8.4 fl 03/13/19 05:10 Add Manual Diff YES 03/12/19 05:33 Neutrophils % 70.8 % (40.0-80.0) 03/13/19 05:10 Band Neutrophils % 1 % (0-10) 03/11/19 16:33 Lymphocytes % 16.2 % (20.0-50.0) L 03/13/19 05:10 Monocytes % 10.3 % (2.0-10.0) H 03/13/19 05:10 Eosinophils % 2.5 % (0.0-5.0) 03/13/19 05:10 Basophils % 0.2 % (0.0-2.0) 03/13/19 05:10 Neutrophils (Manual) 85 % (40-80) H 03/12/19 05:33 Lymphocytes 6 % (20-50) L 03/12/19 05:33 Monocytes 9 % (2-10) 03/12/19 05:33 Platelet Estimate ADEQUATE (NORMAL) 03/12/19 05:33 PT 10.3 SECONDS (9.5-11.5) 03/11/19 16:33 INR 0.99 (0.5-1.4) 03/11/19 16:33 PTT (Actin FS) 34.5 SECONDS (26.0-38.0) 03/11/19 16:33 Sodium 138 mEq/L (136-145) 03/13/19 05:10 Potassium 3.5 mEq/L (3.5-5.1) 03/13/19 05:10 Chloride 103 mEq/L (98-107) 03/13/19 05:10 Carbon Dioxide 27.7 mEq/L (21.0-31.0) 03/13/19 05:10 Anion Gap 10.8 (7.0-16.0) 03/13/19 05:10 BUN 11 mg/dL (7-25) 03/13/19 05:10 Creatinine 0.7 mg/dL (0.7-1.3) 03/13/19 05:10 Est GFR ( Amer) > 60.0 ml/min (>90) 03/13/19 05:10 Est GFR (Non-Af Amer) > 60.0 ml/min 03/13/19 05:10 BUN/Creatinine Ratio 15.7 03/13/19 05:10 Glucose 105 mg/dL (70-105) 03/13/19 05:10 Whole Bld Lactic Acid 0.94 mmol/L (0.60-1.99) 03/11/19 16:33 Calcium 8.4 mg/dL (8.6-10.3) L 03/13/19 05:10 Magnesium 2.2 mg/dL (1.9-2.7) 03/13/19 05:10 Total Bilirubin 0.3 mg/dL (0.3-1.0) 03/11/19 16:33 AST 25 U/L (13-39) 03/11/19 16:33 ALT 30 U/L (7-52) 03/11/19 16:33 Alkaline Phosphatase 94 U/L (34-104) 03/11/19 16:33 Creatine Kinase 31 U/L (30-223) 03/11/19 16:33 Troponin I 0.02 ng/mL (0.01-0.05) 03/11/19 16:33 Total Protein 7.7 gm/dL (6.0-8.3) 03/11/19 16:33 Albumin 3.0 gm/dL (4.2-5.5) L 03/11/19 16:33 Globulin 4.7 gm/dL 03/11/19 16:33 Albumin/Globulin Ratio 0.6 (1.0-1.8) L 03/11/19 16:33 Triglycerides 96 mg/dL (<150) 03/11/19 16:33 Cholesterol 95 mg/dL (<200) 03/11/19 16:33 LDL Cholesterol Direct 65 mg/dL (75-193) L 03/11/19 16:33 HDL Cholesterol 16 mg/dL (23-92) L 03/11/19 16:33 Amylase 18 U/L (29-103) L 03/11/19 16:33 Lipase 10 U/L (11-82) L 03/11/19 16:33 TSH 1.54 uIU/ml (0.34-5.60) 03/11/19 16:33 Urine Source CATH 03/12/19 15:17 Urine Color YELLOW 03/12/19 15:17 Urine Clarity CLOUDY (CLEAR) 03/12/19 15:17 Urine pH 6.0 (4.6 - 8.0) 03/12/19 15:17 Ur Specific [place] 1.015 (1.005-1.030) 03/12/19 15:17 Urine Protein 30 mg/dL (NEGATIVE) H 03/12/19 15:17 Urine Glucose (UA) NEGATIVE mg/dL (NEGATIVE) 03/12/19 15:17 Urine Ketones TRACE mg/dL (NEGATIVE) 03/12/19 15:17 Urine Blood MODERATE (NEGATIVE) H 03/12/19 15:17 Urine Nitrate POSITIVE (NEGATIVE) H 03/12/19 15:17 Urine Bilirubin NEGATIVE (NEGATIVE) 03/12/19 15:17 Urine Urobilinogen 0.2 E.U./dL (0.2 - 1.0) 03/12/19 15:17 Ur Leukocyte Esterase LARGE (NEGATIVE) H 03/12/19 15:17 Urine RBC 5-10 /hpf (0-5) H 03/12/19 15:17 Urine WBC 50-100 /hpf (0-5) H 03/12/19 15:17 Ur Epithelial Cells FEW /lpf (FEW) 03/12/19 15:17 Urine Bacteria MANY /hpf (NONE SEEN) H 03/12/19 15:17 Salicylates < 25.0 mg/L (30.0-100.0) L 03/11/19 16:33 Urine Opiates Screen POSITIVE (NEGATIVE) H 03/12/19 15:17 Urine Methadone Screen NEGATIVE (NEGATIVE) 03/12/19 15:17 Acetaminophen < 10.0 ug/mL (10.0-30.0) L 03/11/19 16:33 Ur Barbiturates Screen NEGATIVE (NEGATIVE) 03/12/19 15:17 Ur Tricyclics Screen POSITIVE (NEGATIVE) H 03/12/19 15:17 Ur Phencyclidine Scrn NEGATIVE (NEGATIVE) 03/12/19 15:17 Amphetamines Screen NEGATIVE (NEGATIVE) 03/12/19 15:17 U Methamphetamines Scrn NEGATIVE (NEGATIVE) 03/12/19 15:17 U Benzodiazepines Scrn POSITIVE (NEGATIVE) H 03/12/19 15:17 U Cocaine Metab Screen NEGATIVE (NEGATIVE) 03/12/19 15:17 U Cannabinoids Screen NEGATIVE (NEGATIVE) 03/12/19 15:17 Ethyl Alcohol < 10 mg/dL (0-10) 03/11/19 16:33 RPR NONREACTIVE (NONREACTIVE) 03/11/19 16:33 - Physical Exam Vitals and I&O: Vital Signs Temp 96.2 F 03/15/19 08:52 Pulse 72 03/15/19 08:52 Resp 18 03/15/19 08:52 BP 126/71 03/15/19 08:52 Pulse Ox 98 03/15/19 08:52 Intake & Output 03/14/19 03/15/19 03/15/19 18:59 06:59 18:59 Intake Total 720 480 Output Total 750 Balance 720 -270 Weight (lbs) 200 lb 200 lb Intake: Oral 720 480 Output: Urine 600 Stool 150 Other: # Voids 4 # Bowel Movements 0 Stool Characteristics Soft Formed Brown Weight Source Bedscale Bedscale Active Medications: Current Medications Acetaminophen (Tylenol) 650 mg PO Q12H PRN PRN Reason: Pain (Mild) Stop: 05/10/19 18:16 Last Admin: 03/12/19 09:54 Dose: 650 mg Acetaminophen/Hydrocodone Bitart ([place] 5mg/325mg) 1 tab PO Q6H PRN PRN Reason: Pain (Moderate) Stop: 05/10/19 18:16 Last Admin: 03/15/19 04:25 Dose: 1 tab Ascorbic Acid (Vitamin C) 500 mg PO DAILY [facility] Stop: 05/11/19 08:59 Last Admin: 03/15/19 08:08 Dose: 500 mg Aspirin (Aspirin Chewable) 81 mg PO DAILY [facility] Stop: 05/11/19 08:59 Last Admin: 03/15/19 08:08 Dose: 81 mg Bisacodyl (Dulcolax 5 Mg Ec Tab) 10 mg PO Q72H PRN PRN Reason: Constipation Stop: 05/10/19 18:16 Docusate Sodium (Colace) 250 mg PO BID PRN PRN Reason: Constipation Stop: 05/10/19 18:16 Last Admin: 03/14/19 08:44 Dose: 250 mg Hydrochlorothiazide (Hctz) 25 mg PO DAILY [facility] Stop: 05/11/19 08:59 Last Admin: 03/15/19 08:18 Dose: 25 mg Losartan Potassium (Cozaar) 25 mg PO DAILY [facility] Stop: 05/11/19 08:59 Last Admin: 03/15/19 08:17 Dose: 25 mg Olanzapine (Zyprexa) 20 mg PO HS [facility]; Protocol Stop: 05/12/19 20:59 Last Admin: 03/14/19 20:12 Dose: 20 mg Pantoprazole Sodium (Protonix) 40 mg PO QDAC [facility] Stop: 05/11/19 07:29 Last Admin: 03/15/19 06:43 Dose: 40 mg Polyethylene Glycol (Miralax) 17 gm PO Q72H PRN PRN Reason: Constipation Stop: 05/10/19 19:29 Quetiapine Fumarate (Seroquel) 50 mg PO BID [facility]; Protocol Stop: 05/12/19 16:59 Last Admin: 03/15/19 08:08 Dose: 50 mg Senna (Senna) 8.6 mg PO HS [facility] Stop: 05/10/19 20:59 Last Admin: 03/14/19 20:12 Dose: 8.6 mg Valproate Sodium (Depakene) 250 mg PO Q8HR [facility] Stop: 05/10/19 20:59 Last Admin: 03/15/19 13:06 Dose: 250 mg General: alert HEENT: NC/AT, PERRLA, EOMI Neck: Supple, No JVD Lungs: congested Cardiovascular: RRR, Normal S1, Normal S2 Abdomen: soft, globular, positive bowel sound Extremities: excoriation, ulcers stage 3 Neurological: no change, bedbound - Procedures Procedures: Procedures Procedure Code Date OTHER GROUP THERAPY 94.44 03/29/12 RECREATIONAL THERAPY 93.81 09/06/11 Internal Medicine Assmt/Plan - Assessment Assessment: Sepsis, leukocytosis, probable pneumonia, hypertension, history of stroke, dementia, and psych disorder. decub ulcer hip pain - Plan Plan: awaiting for snf bed continue current plan of care Nutritional Asmnt/Malnutr-PDOC - Dietary Evaluation Malnutrition Findings (Please click <Entered> for more info): Nutritional Asmnt/Malnutrition Start: 03/12/19 16: 27 Text: Status: Complete Freq: Protocol: Document 03/12/19 16:28 JAD (Rec: 03/12/19 16:40 JAD [email or web address]) Nutritional Asmnt/Malnutrition Patient General Information Nutritional Screening High Risk Consult Diagnosis possible sepsis Pertinent Medical Hx/Surgical Hx HTN, asthma/COPD, CVA/TIA, PUD /GERD, seizures, dementia, bipolar Subjective Information Pt seen sleeping in bed covered with blanket at time of visit. Consult received for wound. Current Diet Order/ Nutrition Support regular Pertinent Medications vit C, colace, D5-0.9%ns, levquin, protonix, miralax, seroquel Pertinent Labs 03/12 K 3.4, Cr 0.6, glucose 116, Ca 8.2, Mg 1.8 Nutritional Hx/Data Height 5 ft 5 in Height (Calculated Centimeters) 165.1 Current Weight (lbs) 218 lb Weight (Calculated Kilograms) 98.9 Weight (Calculated Grams) 35296.1 [place] Body Weight 136 Body Mass Index (BMI) 36.2 Weight Status Obese GI Symptoms GI Symptoms None Last BM not indicated Difficult in: None Skin Integrity/Comment: stage IV pressure ulcer to left buttock per wound care note. Gee 12. Estimated Nutritional Goals BEE in Kcals: Adj wt of IBW Calories/Kcals/Kg 25-30 Kcals Calculated 5540-1868 Protein: Adj wt of IBW Protein g/k.2 Protein Calculated 71 Fluid: ml 1775-2130ml (1ml/kcal) Nutritional Problem 1. Problem Problem increased nutrition needs Etiology impaired skin integrity Signs/Symptoms: stage IV pressure ulcer Malnutrition Alert Is there a minimum of two criteria No selected? Query Text:Check all the applicable criteria. A minimum of two criteria are recommended for diagnosis of either severe or non-severe malnutrition. Malnutrition Related to Morbid Obesity Malnutrition related to morbid obesity No Intervention/Recommendation Comments 1. Continue with regular diet as ordered. Add Gilberto BID for wound healing. 2. Monitor PO intake, wt, labs and skin integrity 3. F/U as high risk in 2-3 days Expected Outcomes/Goals Expected Outcomes/Goals 1. PO intake to meet at least 75% of nutritional needs. 2. Wt stability, skin to remain intact, labs to approach WNL.
--- NOTE | 2019-03-15 22:10 | Progress Notes ---
DATE: 03/15/2019 SUBJECTIVE: The patient was sitting up on his bed, eating breakfast. The patient was pleasant when approached. The patient was verbally responsive. The patient reported that he is doing okay. However, the patient appeared to be confused. The patient was not able to recall the name of the facility where he was prior to coming here. The patient denied any aggressive behavior. When I asked if he remembered being aggressive at the facility before he was transferred here, the patient was not able to give a coherent answer. The patient denied any aggressive behavior. The patient reported that he has been eating and sleeping okay. The patient denied any auditory or visual hallucinations or delusion. OBJECTIVE: The patient appeared to be calm, cooperative, pleasant and smiling easily. The patient appeared to be confused. The patient was not able to give the name of this facility or the name of the facility where he was prior to coming here. Staff reported that the patient has been doing okay. The patient was supposed to be discharged yesterday back to [facility]; however, they did not have any bed available for him and they have to rearrange the room in order to accommodate the patient hopefully today. Staff reported that the patient continued to be cooperative with care and treatment and no recurrent aggressive behavior. ASSESSMENT: The patient appeared to be doing okay with no recurrent aggressive behavior. PLAN: We will continue current medications and discharge the patient when [facility] is able to accept the patient. JOB# [id number] KAYLA
[2019-03-15] MEDS: Meropenem 1 GM in Sodium Chloride 0.9% 100 ML IV SCH (22:51)
[2019-03-16] MEDS: Hydrocodone/APAP 5mg/325mg Tab PO PRN ×2 (05:33→16:45)
[2019-03-16] MEDS: Pantoprazole 40 mg EC Tab PO SCH (06:50)
[2019-03-16] MEDS: Multivitamin w/ Minerals Tab PO SCH (09:13)
[2019-03-16] MEDS: Aspirin 81mg Chewable Tab PO SCH (09:14)
[2019-03-16] MEDS: Meropenem 1 GM in Sodium Chloride 0.9% 100 ML IV SCH ×2 (10:40→21:00)
--- NOTE | 2019-03-16 16:48 | Internal Medicine Prog Note ---
Internal Medicine Subjective - Subjective Service Date: 03/16/19 Patient is:: awake, verbal, interactive Per staff patient has:: no adverse event, no episodes of fall, poor appetite, tolerating meds Internal Medicine Objective - Results Result Diagrams: 03/13/19 05:10 03/13/19 05:10 Recent Labs: Laboratory Last Values WBC 12.5 Th/cmm (4.8-10.8) H 03/13/19 05:10 RBC 3.79 Mil/cmm (4.30-5.70) L 03/13/19 05:10 Hgb 10.0 gm/dL (12-16) L 03/13/19 05:10 Hct 30.7 % (41.0-60) L 03/13/19 05:10 MCV 80.8 fl (80-99) 03/13/19 05:10 MCH 26.4 pg (26.0-30.0) 03/13/19 05:10 MCHC Differential 32.6 pg (28.0-36.0) 03/13/19 05:10 RDW 15.1 % (11.5-20.0) 03/13/19 05:10 Plt Count 412 Th/cmm (150-400) H D 03/13/19 05:10 MPV 8.4 fl 03/13/19 05:10 Add Manual Diff YES 03/12/19 05:33 Neutrophils % 70.8 % (40.0-80.0) 03/13/19 05:10 Band Neutrophils % 1 % (0-10) 03/11/19 16:33 Lymphocytes % 16.2 % (20.0-50.0) L 03/13/19 05:10 Monocytes % 10.3 % (2.0-10.0) H 03/13/19 05:10 Eosinophils % 2.5 % (0.0-5.0) 03/13/19 05:10 Basophils % 0.2 % (0.0-2.0) 03/13/19 05:10 Neutrophils (Manual) 85 % (40-80) H 03/12/19 05:33 Lymphocytes 6 % (20-50) L 03/12/19 05:33 Monocytes 9 % (2-10) 03/12/19 05:33 Platelet Estimate ADEQUATE (NORMAL) 03/12/19 05:33 PT 10.3 SECONDS (9.5-11.5) 03/11/19 16:33 INR 0.99 (0.5-1.4) 03/11/19 16:33 PTT (Actin FS) 34.5 SECONDS (26.0-38.0) 03/11/19 16:33 Sodium 138 mEq/L (136-145) 03/13/19 05:10 Potassium 3.5 mEq/L (3.5-5.1) 03/13/19 05:10 Chloride 103 mEq/L (98-107) 03/13/19 05:10 Carbon Dioxide 27.7 mEq/L (21.0-31.0) 03/13/19 05:10 Anion Gap 10.8 (7.0-16.0) 03/13/19 05:10 BUN 11 mg/dL (7-25) 03/13/19 05:10 Creatinine 0.7 mg/dL (0.7-1.3) 03/13/19 05:10 Est GFR ( Amer) > 60.0 ml/min (>90) 03/13/19 05:10 Est GFR (Non-Af Amer) > 60.0 ml/min 03/13/19 05:10 BUN/Creatinine Ratio 15.7 03/13/19 05:10 Glucose 105 mg/dL (70-105) 03/13/19 05:10 Whole Bld Lactic Acid 0.94 mmol/L (0.60-1.99) 03/11/19 16:33 Calcium 8.4 mg/dL (8.6-10.3) L 03/13/19 05:10 Magnesium 2.2 mg/dL (1.9-2.7) 03/13/19 05:10 Total Bilirubin 0.3 mg/dL (0.3-1.0) 03/11/19 16:33 AST 25 U/L (13-39) 03/11/19 16:33 ALT 30 U/L (7-52) 03/11/19 16:33 Alkaline Phosphatase 94 U/L (34-104) 03/11/19 16:33 Creatine Kinase 31 U/L (30-223) 03/11/19 16:33 Troponin I 0.02 ng/mL (0.01-0.05) 03/11/19 16:33 Total Protein 7.7 gm/dL (6.0-8.3) 03/11/19 16:33 Albumin 3.0 gm/dL (4.2-5.5) L 03/11/19 16:33 Globulin 4.7 gm/dL 03/11/19 16:33 Albumin/Globulin Ratio 0.6 (1.0-1.8) L 03/11/19 16:33 Triglycerides 96 mg/dL (<150) 03/11/19 16:33 Cholesterol 95 mg/dL (<200) 03/11/19 16:33 LDL Cholesterol Direct 65 mg/dL (75-193) L 03/11/19 16:33 HDL Cholesterol 16 mg/dL (23-92) L 03/11/19 16:33 Amylase 18 U/L (29-103) L 03/11/19 16:33 Lipase 10 U/L (11-82) L 03/11/19 16:33 TSH 1.54 uIU/ml (0.34-5.60) 03/11/19 16:33 Urine Source CATH 03/12/19 15:17 Urine Color YELLOW 03/12/19 15:17 Urine Clarity CLOUDY (CLEAR) 03/12/19 15:17 Urine pH 6.0 (4.6 - 8.0) 03/12/19 15:17 Ur Specific [place] 1.015 (1.005-1.030) 03/12/19 15:17 Urine Protein 30 mg/dL (NEGATIVE) H 03/12/19 15:17 Urine Glucose (UA) NEGATIVE mg/dL (NEGATIVE) 03/12/19 15:17 Urine Ketones TRACE mg/dL (NEGATIVE) 03/12/19 15:17 Urine Blood MODERATE (NEGATIVE) H 03/12/19 15:17 Urine Nitrate POSITIVE (NEGATIVE) H 03/12/19 15:17 Urine Bilirubin NEGATIVE (NEGATIVE) 03/12/19 15:17 Urine Urobilinogen 0.2 E.U./dL (0.2 - 1.0) 03/12/19 15:17 Ur Leukocyte Esterase LARGE (NEGATIVE) H 03/12/19 15:17 Urine RBC 5-10 /hpf (0-5) H 03/12/19 15:17 Urine WBC 50-100 /hpf (0-5) H 03/12/19 15:17 Ur Epithelial Cells FEW /lpf (FEW) 03/12/19 15:17 Urine Bacteria MANY /hpf (NONE SEEN) H 03/12/19 15:17 Salicylates < 25.0 mg/L (30.0-100.0) L 03/11/19 16:33 Urine Opiates Screen POSITIVE (NEGATIVE) H 03/12/19 15:17 Urine Methadone Screen NEGATIVE (NEGATIVE) 03/12/19 15:17 Acetaminophen < 10.0 ug/mL (10.0-30.0) L 03/11/19 16:33 Ur Barbiturates Screen NEGATIVE (NEGATIVE) 03/12/19 15:17 Ur Tricyclics Screen POSITIVE (NEGATIVE) H 03/12/19 15:17 Ur Phencyclidine Scrn NEGATIVE (NEGATIVE) 03/12/19 15:17 Amphetamines Screen NEGATIVE (NEGATIVE) 03/12/19 15:17 U Methamphetamines Scrn NEGATIVE (NEGATIVE) 03/12/19 15:17 U Benzodiazepines Scrn POSITIVE (NEGATIVE) H 03/12/19 15:17 U Cocaine Metab Screen NEGATIVE (NEGATIVE) 03/12/19 15:17 U Cannabinoids Screen NEGATIVE (NEGATIVE) 03/12/19 15:17 Ethyl Alcohol < 10 mg/dL (0-10) 03/11/19 16:33 RPR NONREACTIVE (NONREACTIVE) 03/11/19 16:33 - Physical Exam Vitals and I&O: Vital Signs Temp 97.2 F 03/16/19 15:34 Pulse 99 03/16/19 15:34 Resp 18 03/16/19 15:34 BP 131/69 03/16/19 15:34 Pulse Ox 100 03/16/19 15:34 Intake & Output 03/15/19 03/16/19 03/16/19 18:59 06:59 18:59 Intake Total 700 Output Total 900 Balance -200 Weight (lbs) 200 lb Intake: Intake, IV Amount 100 Meropenem 1 gm In Sodium 100 Chloride 0.9% 100 ml @ 100 mls/hr IV Q12H [facility] Rx #:[id number] Oral 600 Output: Urine 900 Other: # Voids 2 Weight Source Bedscale Active Medications: Current Medications Acetaminophen (Tylenol) 650 mg PO Q12H PRN PRN Reason: Pain (Mild) Stop: 05/10/19 18:16 Last Admin: 03/12/19 09:54 Dose: 650 mg Acetaminophen/Hydrocodone Bitart ([place] 5mg/325mg) 1 tab PO Q6H PRN PRN Reason: Pain (Moderate) Stop: 05/10/19 18:16 Last Admin: 03/16/19 16:45 Dose: 1 tab Ascorbic Acid (Vitamin C) 500 mg PO DAILY [facility] Stop: 05/11/19 08:59 Last Admin: 03/16/19 09:14 Dose: 500 mg Aspirin (Aspirin Chewable) 81 mg PO DAILY [facility] Stop: 05/11/19 08:59 Last Admin: 03/16/19 09:14 Dose: 81 mg Bisacodyl (Dulcolax 5 Mg Ec Tab) 10 mg PO Q72H PRN PRN Reason: Constipation Stop: 05/10/19 18:16 Docusate Sodium (Colace) 250 mg PO BID PRN PRN Reason: Constipation Stop: 05/10/19 18:16 Last Admin: 03/14/19 08:44 Dose: 250 mg Hydrochlorothiazide (Hctz) 25 mg PO DAILY [facility] Stop: 05/11/19 08:59 Last Admin: 03/16/19 09:07 Dose: Not Given Meropenem 1 gm/ Sodium (Chloride) 100 mls @ 100 mls/hr IV Q12H [facility] Stop: 05/14/19 21:59 Last Admin: 03/16/19 10:40 Dose: 100 mls/hr Losartan Potassium (Cozaar) 25 mg PO DAILY [facility] Stop: 05/11/19 08:59 Last Admin: 03/16/19 09:07 Dose: Not Given Olanzapine (Zyprexa) 20 mg PO HS [facility]; Protocol Stop: 05/12/19 20:59 Last Admin: 03/15/19 20:53 Dose: 20 mg Pantoprazole Sodium (Protonix) 40 mg PO QDAC [facility] Stop: 05/11/19 07:29 Last Admin: 03/16/19 06:50 Dose: 40 mg Polyethylene Glycol (Miralax) 17 gm PO Q72H PRN PRN Reason: Constipation Stop: 05/10/19 19:29 Quetiapine Fumarate (Seroquel) 50 mg PO BID [facility]; Protocol Stop: 05/12/19 16:59 Last Admin: 03/16/19 16:09 Dose: 50 mg Senna (Senna) 8.6 mg PO HS [facility] Stop: 05/10/19 20:59 Last Admin: 03/15/19 20:53 Dose: 8.6 mg Valproate Sodium (Depakene) 250 mg PO Q8HR [facility] Stop: 05/10/19 20:59 Last Admin: 03/16/19 11:59 Dose: 250 mg General: alert HEENT: NC/AT, PERRLA, EOMI Neck: Supple, No JVD Lungs: congested Cardiovascular: RRR, Normal S1, Normal S2 Abdomen: soft, globular, positive bowel sound Extremities: excoriation, ulcers stage 3 Neurological: no change, bedbound - Procedures Procedures: Procedures Procedure Code Date OTHER GROUP THERAPY 94.44 03/29/12 RECREATIONAL THERAPY 93.81 09/06/11 Internal Medicine Assmt/Plan - Assessment Assessment: acute uti with klebsiella pneumoniae, Sepsis, leukocytosis, probable pneumonia, hypertension, history of stroke, dementia, and psych disorder. decub ulcer hip pain - Plan Plan: merrem 1gm iv q12h am labs continue current plan of care Nutritional Asmnt/Malnutr-PDOC - Dietary Evaluation Malnutrition Findings (Please click <Entered> for more info): Nutritional Asmnt/Malnutrition Start: 03/12/19 16: 27 Text: Status: Complete Freq: Protocol: Document 03/12/19 16:28 LCHENG (Rec: 03/12/19 16:40 [email or web address]) Nutritional Asmnt/Malnutrition Patient General Information Nutritional Screening High Risk Consult Diagnosis possible sepsis Pertinent Medical Hx/Surgical Hx HTN, asthma/COPD, CVA/TIA, PUD /GERD, seizures, dementia, bipolar Subjective Information Pt seen sleeping in bed covered with blanket at time of visit. Consult received for wound. Current Diet Order/ Nutrition Support regular Pertinent Medications vit C, colace, D5-0.9%ns, levquin, protonix, miralax, seroquel Pertinent Labs 03/12 K 3.4, Cr 0.6, glucose 116, Ca 8.2, Mg 1.8 Nutritional Hx/Data Height 5 ft 5 in Height (Calculated Centimeters) 165.1 Current Weight (lbs) 218 lb Weight (Calculated Kilograms) 98.9 Weight (Calculated Grams) 94727.1 [place] Body Weight 136 Body Mass Index (BMI) 36.2 Weight Status Obese GI Symptoms GI Symptoms None Last BM not indicated Difficult in: None Skin Integrity/Comment: stage IV pressure ulcer to left buttock per wound care note. Gee 12. Estimated Nutritional Goals BEE in Kcals: Adj wt of IBW Calories/Kcals/Kg 25-30 Kcals Calculated 4930-7289 Protein: Adj wt of IBW Protein g/k.2 Protein Calculated 71 Fluid: ml 1775-2130ml (1ml/kcal) Nutritional Problem 1. Problem Problem increased nutrition needs Etiology impaired skin integrity Signs/Symptoms: stage IV pressure ulcer Malnutrition Alert Is there a minimum of two criteria No selected? Query Text:Check all the applicable criteria. A minimum of two criteria are recommended for diagnosis of either severe or non-severe malnutrition. Malnutrition Related to Morbid Obesity Malnutrition related to morbid obesity No Intervention/Recommendation Comments 1. Continue with regular diet as ordered. Add Gilberto BID for wound healing. 2. Monitor PO intake, wt, labs and skin integrity 3. F/U as high risk in 2-3 days Expected Outcomes/Goals Expected Outcomes/Goals 1. PO intake to meet at least 75% of nutritional needs. 2. Wt stability, skin to remain intact, labs to approach WNL.
[2019-03-17] MEDS: Hydrocodone/APAP 5mg/325mg Tab PO PRN ×2 (02:56→21:09)
[2019-03-17 05:17] LABS: ANION GAP 11.9 (7.0-16.0); BUN - UREA NITROGEN 11 mg/dL (7-25); CALCIUM SERUM 9.2 mg/dL (8.6-10.3); CARBON DIOXIDE 25.2 mEq/L (21.0-31.0); CHLORIDE 106 mEq/L (98-107); CREATININE - SERUM 0.5 mg/dL (0.7-1.3); GFR AFRICAN-AMERICAN > 60.0 ml/min (>90); GFR NON AFRICAN-AMERICAN > 60.0 ml/min; GLUCOSE 100 mg/dL (70-105); POTASSIUM SERUM 4.1 mEq/L (3.5-5.1); SODIUM SERUM 139 mEq/L (136-145)
[2019-03-17 05:43] LABS: HEMATOCRIT 34.5 % (41.0-60); HEMOGLOBIN 11.2 gm/dL (12-16); MEAN CELL VOLUME 81.6 fl (80-99); MEAN CORPUSCULAR HEMOGLOBIN 26.4 pg (26.0-30.0); MEAN CORPUSCULAR HGB CONC 32.4 pg (28.0-36.0); MEAN PLATELET VOLUME 8.3 fl; PLATELET COUNT 215 Th/cmm (150-400); RED BLOOD COUNT 4.22 Mil/cmm (4.30-5.70); RED CELL DISTRIBUTION WIDTH 15.5 % (11.5-20.0)
[2019-03-17 06:16] LABS: WHITE BLOOD COUNT 15.5 Th/cmm (4.8-10.8)
[2019-03-17] MEDS: Multivitamin w/ Minerals Tab PO SCH (08:10)
[2019-03-17] MEDS: Aspirin 81mg Chewable Tab PO SCH (08:10)
[2019-03-17] MEDS: Pantoprazole 40 mg EC Tab PO SCH (08:10)
[2019-03-17] MEDS: Meropenem 1 GM in Sodium Chloride 0.9% 100 ML IV SCH ×2 (09:02→21:36)
[2019-03-17 11:32] LABS: EOSINOPHIL 1 % (0-5); LYMPHOCYTE 24 % (20-50); MONOCYTE 10 % (2-10); NEUTROPHILS 65 % (40-80); PLATELET ESTIMATE ADEQUATE (NORMAL)
--- NOTE | 2019-03-17 13:53 | Internal Medicine Prog Note ---
Internal Medicine Subjective - Subjective Service Date: 03/17/19 Patient is:: awake, verbal, interactive Patient Complaints of:: congestion Per staff patient has:: no adverse event, no episodes of fall, poor appetite, tolerating meds Internal Medicine Objective - Results Result Diagrams: 03/17/19 04:40 03/17/19 04:40 Recent Labs: Laboratory Last Values WBC 15.5 Th/cmm (4.8-10.8) H 03/17/19 04:40 RBC 4.22 Mil/cmm (4.30-5.70) L 03/17/19 04:40 Hgb 11.2 gm/dL (12-16) L 03/17/19 04:40 Hct 34.5 % (41.0-60) L 03/17/19 04:40 MCV 81.6 fl (80-99) 03/17/19 04:40 MCH 26.4 pg (26.0-30.0) 03/17/19 04:40 MCHC Differential 32.4 pg (28.0-36.0) 03/17/19 04:40 RDW 15.5 % (11.5-20.0) 03/17/19 04:40 Plt Count 215 Th/cmm (150-400) 03/17/19 04:40 MPV 8.3 fl 03/17/19 04:40 Add Manual Diff YES 03/17/19 04:40 Neutrophils % [employer] 03/17/19 04:40 Band Neutrophils % 1 % (0-10) 03/11/19 16:33 Lymphocytes % [employer] 03/17/19 04:40 Monocytes % [employer] 03/17/19 04:40 Eosinophils % [employer] 03/17/19 04:40 Basophils % [employer] 03/17/19 04:40 Neutrophils (Manual) 65 % (40-80) 03/17/19 04:40 Lymphocytes 24 % (20-50) 03/17/19 04:40 Monocytes 10 % (2-10) 03/17/19 04:40 Eosinophils 1 % (0-5) 03/17/19 04:40 Platelet Estimate ADEQUATE (NORMAL) 03/17/19 04:40 Smear Path Review [employer] 03/17/19 04:40 PT 10.3 SECONDS (9.5-11.5) 03/11/19 16:33 INR 0.99 (0.5-1.4) 03/11/19 16:33 PTT (Actin FS) 34.5 SECONDS (26.0-38.0) 03/11/19 16:33 Sodium 139 mEq/L (136-145) 03/17/19 04:40 Potassium 4.1 mEq/L (3.5-5.1) 03/17/19 04:40 Chloride 106 mEq/L (98-107) 03/17/19 04:40 Carbon Dioxide 25.2 mEq/L (21.0-31.0) 03/17/19 04:40 Anion Gap 11.9 (7.0-16.0) 03/17/19 04:40 BUN 11 mg/dL (7-25) 03/17/19 04:40 Creatinine 0.5 mg/dL (0.7-1.3) L 03/17/19 04:40 Est GFR ( Amer) > 60.0 ml/min (>90) 03/17/19 04:40 Est GFR (Non-Af Amer) > 60.0 ml/min 03/17/19 04:40 BUN/Creatinine Ratio 22.0 03/17/19 04:40 Glucose 100 mg/dL (70-105) 03/17/19 04:40 Whole Bld Lactic Acid 0.94 mmol/L (0.60-1.99) 03/11/19 16:33 Calcium 9.2 mg/dL (8.6-10.3) 03/17/19 04:40 Magnesium 2.2 mg/dL (1.9-2.7) 03/13/19 05:10 Total Bilirubin 0.3 mg/dL (0.3-1.0) 03/11/19 16:33 AST 25 U/L (13-39) 03/11/19 16:33 ALT 30 U/L (7-52) 03/11/19 16:33 Alkaline Phosphatase 94 U/L (34-104) 03/11/19 16:33 Creatine Kinase 31 U/L (30-223) 03/11/19 16:33 Troponin I 0.02 ng/mL (0.01-0.05) 03/11/19 16:33 Total Protein 7.7 gm/dL (6.0-8.3) 03/11/19 16:33 Albumin 3.0 gm/dL (4.2-5.5) L 03/11/19 16:33 Globulin 4.7 gm/dL 03/11/19 16:33 Albumin/Globulin Ratio 0.6 (1.0-1.8) L 03/11/19 16:33 Triglycerides 96 mg/dL (<150) 03/11/19 16:33 Cholesterol 95 mg/dL (<200) 03/11/19 16:33 LDL Cholesterol Direct 65 mg/dL (75-193) L 03/11/19 16:33 HDL Cholesterol 16 mg/dL (23-92) L 03/11/19 16:33 Amylase 18 U/L (29-103) L 03/11/19 16:33 Lipase 10 U/L (11-82) L 03/11/19 16:33 TSH 1.54 uIU/ml (0.34-5.60) 03/11/19 16:33 Urine Source CATH 03/12/19 15:17 Urine Color YELLOW 03/12/19 15:17 Urine Clarity CLOUDY (CLEAR) 03/12/19 15:17 Urine pH 6.0 (4.6 - 8.0) 03/12/19 15:17 Ur Specific [place] 1.015 (1.005-1.030) 03/12/19 15:17 Urine Protein 30 mg/dL (NEGATIVE) H 03/12/19 15:17 Urine Glucose (UA) NEGATIVE mg/dL (NEGATIVE) 03/12/19 15:17 Urine Ketones TRACE mg/dL (NEGATIVE) 03/12/19 15:17 Urine Blood MODERATE (NEGATIVE) H 03/12/19 15:17 Urine Nitrate POSITIVE (NEGATIVE) H 03/12/19 15:17 Urine Bilirubin NEGATIVE (NEGATIVE) 03/12/19 15:17 Urine Urobilinogen 0.2 E.U./dL (0.2 - 1.0) 03/12/19 15:17 Ur Leukocyte Esterase LARGE (NEGATIVE) H 03/12/19 15:17 Urine RBC 5-10 /hpf (0-5) H 03/12/19 15:17 Urine WBC 50-100 /hpf (0-5) H 03/12/19 15:17 Ur Epithelial Cells FEW /lpf (FEW) 03/12/19 15:17 Urine Bacteria MANY /hpf (NONE SEEN) H 03/12/19 15:17 Salicylates < 25.0 mg/L (30.0-100.0) L 03/11/19 16:33 Urine Opiates Screen POSITIVE (NEGATIVE) H 03/12/19 15:17 Urine Methadone Screen NEGATIVE (NEGATIVE) 03/12/19 15:17 Acetaminophen < 10.0 ug/mL (10.0-30.0) L 03/11/19 16:33 Ur Barbiturates Screen NEGATIVE (NEGATIVE) 03/12/19 15:17 Ur Tricyclics Screen POSITIVE (NEGATIVE) H 03/12/19 15:17 Ur Phencyclidine Scrn NEGATIVE (NEGATIVE) 03/12/19 15:17 Amphetamines Screen NEGATIVE (NEGATIVE) 03/12/19 15:17 U Methamphetamines Scrn NEGATIVE (NEGATIVE) 03/12/19 15:17 U Benzodiazepines Scrn POSITIVE (NEGATIVE) H 03/12/19 15:17 U Cocaine Metab Screen NEGATIVE (NEGATIVE) 03/12/19 15:17 U Cannabinoids Screen NEGATIVE (NEGATIVE) 03/12/19 15:17 Ethyl Alcohol < 10 mg/dL (0-10) 03/11/19 16:33 RPR NONREACTIVE (NONREACTIVE) 03/11/19 16:33 - Physical Exam Vitals and I&O: Vital Signs Temp 97.2 F 03/17/19 11:50 Pulse 72 03/17/19 11:50 Resp 18 03/17/19 11:50 BP 140/77 03/17/19 11:50 Pulse Ox 100 03/17/19 11:50 Intake & Output 03/16/19 03/17/19 03/17/19 18:59 06:59 18:59 Intake Total 600 100 Output Total 950 Balance -350 100 Weight (lbs) 200 lb Intake: Intake, IV Amount 100 100 Meropenem 1 gm In Sodium 100 100 Chloride 0.9% 100 ml @ 100 mls/hr IV Q12H [facility] Rx #:[id number] Oral 500 Output: Urine 750 Stool 200 Other: # Voids 3 Weight Source Bedscale Active Medications: Current Medications Acetaminophen (Tylenol) 650 mg PO Q12H PRN PRN Reason: Pain (Mild) Stop: 05/10/19 18:16 Last Admin: 03/12/19 09:54 Dose: 650 mg Acetaminophen/Hydrocodone Bitart ([place] 5mg/325mg) 1 tab PO Q6H PRN PRN Reason: Pain (Moderate) Stop: 05/10/19 18:16 Last Admin: 03/17/19 02:56 Dose: 1 tab Ascorbic Acid (Vitamin C) 500 mg PO DAILY [facility] Stop: 05/11/19 08:59 Last Admin: 03/17/19 08:10 Dose: 500 mg Aspirin (Aspirin Chewable) 81 mg PO DAILY [facility] Stop: 05/11/19 08:59 Last Admin: 03/17/19 08:10 Dose: 81 mg Bisacodyl (Dulcolax 5 Mg Ec Tab) 10 mg PO Q72H PRN PRN Reason: Constipation Stop: 05/10/19 18:16 Docusate Sodium (Colace) 250 mg PO BID PRN PRN Reason: Constipation Stop: 05/10/19 18:16 Last Admin: 03/14/19 08:44 Dose: 250 mg Hydrochlorothiazide (Hctz) 25 mg PO DAILY [facility] Stop: 05/11/19 08:59 Last Admin: 03/17/19 07:59 Dose: Not Given Meropenem 1 gm/ Sodium (Chloride) 100 mls @ 100 mls/hr IV Q12H [facility] Stop: 05/14/19 21:59 Last Admin: 03/17/19 09:02 Dose: 100 mls/hr Losartan Potassium (Cozaar) 25 mg PO DAILY [facility] Stop: 05/11/19 08:59 Last Admin: 03/17/19 07:59 Dose: Not Given Olanzapine (Zyprexa) 20 mg PO HS [facility]; Protocol Stop: 05/12/19 20:59 Last Admin: 03/16/19 20:43 Dose: 20 mg Pantoprazole Sodium (Protonix) 40 mg PO QDAC [facility] Stop: 05/11/19 07:29 Last Admin: 03/17/19 08:10 Dose: 40 mg Polyethylene Glycol (Miralax) 17 gm PO Q72H PRN PRN Reason: Constipation Stop: 05/10/19 19:29 Quetiapine Fumarate (Seroquel) 50 mg PO BID [facility]; Protocol Stop: 05/12/19 16:59 Last Admin: 03/17/19 07:59 Dose: Not Given Senna (Senna) 8.6 mg PO HS [facility] Stop: 05/10/19 20:59 Last Admin: 03/16/19 20:43 Dose: 8.6 mg Valproate Sodium (Depakene) 250 mg PO Q8HR [facility] Stop: 05/10/19 20:59 Last Admin: 03/17/19 12:37 Dose: 250 mg General: alert HEENT: NC/AT, PERRLA, EOMI Neck: Supple, No JVD Lungs: congested Cardiovascular: RRR, Normal S1, Normal S2 Abdomen: soft, globular, positive bowel sound Extremities: excoriation, ulcers stage 3 Neurological: no change, bedbound - Procedures Procedures: Procedures Procedure Code Date OTHER GROUP THERAPY 94.44 03/29/12 RECREATIONAL THERAPY 93.81 09/06/11 Internal Medicine Assmt/Plan - Assessment Assessment: acute uti with klebsiella pneumoniae, Sepsis, leukocytosis, probable pneumonia, hypertension, history of stroke, dementia, and psych disorder. decub ulcer hip pain - Plan Plan: merrem 1gm iv q12h am labs continue current plan of care Nutritional Asmnt/Malnutr-PDOC - Dietary Evaluation Malnutrition Findings (Please click <Entered> for more info): Nutritional Asmnt/Malnutrition Start: 03/12/19 16: 27 Text: Status: Complete Freq: Protocol: Document 03/12/19 16:28 LCHENG (Rec: 03/12/19 16:40 [email or web address]) Nutritional Asmnt/Malnutrition Patient General Information Nutritional Screening High Risk Consult Diagnosis possible sepsis Pertinent Medical Hx/Surgical Hx HTN, asthma/COPD, CVA/TIA, PUD /GERD, seizures, dementia, bipolar Subjective Information Pt seen sleeping in bed covered with blanket at time of visit. Consult received for wound. Current Diet Order/ Nutrition Support regular Pertinent Medications vit C, colace, D5-0.9%ns, levquin, protonix, miralax, seroquel Pertinent Labs 03/12 K 3.4, Cr 0.6, glucose 116, Ca 8.2, Mg 1.8 Nutritional Hx/Data Height 5 ft 5 in Height (Calculated Centimeters) 165.1 Current Weight (lbs) 218 lb Weight (Calculated Kilograms) 98.9 Weight (Calculated Grams) 19865.1 [place] Body Weight 136 Body Mass Index (BMI) 36.2 Weight Status Obese GI Symptoms GI Symptoms None Last BM not indicated Difficult in: None Skin Integrity/Comment: stage IV pressure ulcer to left buttock per wound care note. Gee 12. Estimated Nutritional Goals BEE in Kcals: Adj wt of IBW Calories/Kcals/Kg 25-30 Kcals Calculated 8384-6104 Protein: Adj wt of IBW Protein g/k.2 Protein Calculated 71 Fluid: ml 1775-2130ml (1ml/kcal) Nutritional Problem 1. Problem Problem increased nutrition needs Etiology impaired skin integrity Signs/Symptoms: stage IV pressure ulcer Malnutrition Alert Is there a minimum of two criteria No selected? Query Text:Check all the applicable criteria. A minimum of two criteria are recommended for diagnosis of either severe or non-severe malnutrition. Malnutrition Related to Morbid Obesity Malnutrition related to morbid obesity No Intervention/Recommendation Comments 1. Continue with regular diet as ordered. Add Gilberto BID for wound healing. 2. Monitor PO intake, wt, labs and skin integrity 3. F/U as high risk in 2-3 days Expected Outcomes/Goals Expected Outcomes/Goals 1. PO intake to meet at least 75% of nutritional needs. 2. Wt stability, skin to remain intact, labs to approach WNL.
[2019-03-18 05:39] LABS: HEMATOCRIT 33.5 % (41.0-60); HEMOGLOBIN 11.2 gm/dL (12-16); MEAN CELL VOLUME 80.7 fl (80-99); MEAN CORPUSCULAR HGB CONC 33.5 pg (28.0-36.0); MEAN PLATELET VOLUME 8.2 fl; PLATELET COUNT 223 Th/cmm (150-400); RED BLOOD COUNT 4.15 Mil/cmm (4.30-5.70); RED CELL DISTRIBUTION WIDTH 15.4 % (11.5-20.0)
[2019-03-18 05:43] LABS: BUN - UREA NITROGEN 14 mg/dL (7-25); CALCIUM SERUM 9.1 mg/dL (8.6-10.3); CARBON DIOXIDE 23.2 mEq/L (21.0-31.0); CHLORIDE 108 mEq/L (98-107); CREATININE - SERUM 0.6 mg/dL (0.7-1.3); GFR AFRICAN-AMERICAN > 60.0 ml/min (>90); GFR NON AFRICAN-AMERICAN > 60.0 ml/min; GLUCOSE 97 mg/dL (70-105); POTASSIUM SERUM 4.2 mEq/L (3.5-5.1); SODIUM SERUM 140 mEq/L (136-145)
[2019-03-18 05:46] LABS: WHITE BLOOD COUNT 16.5 Th/cmm (4.8-10.8)
[2019-03-18 06:25] LABS: BAND NEUTROPHILE 4 % (0-10); EOSINOPHIL 4 % (0-5); LYMPHOCYTE 21 % (20-50); MONOCYTE 6 % (2-10); NEUTROPHILS 64 % (40-80); PLATELET ESTIMATE ADEQUATE (NORMAL)
[2019-03-18] MEDS: Pantoprazole 40 mg EC Tab PO SCH (06:54)
[2019-03-18] MEDS: Multivitamin w/ Minerals Tab PO SCH (09:28)
[2019-03-18] MEDS: Aspirin 81mg Chewable Tab PO SCH (09:28)
[2019-03-18] MEDS: Meropenem 1 GM in Sodium Chloride 0.9% 100 ML IV SCH (11:16)
--- NOTE | 2019-03-18 12:26 | Internal Medicine Prog Note ---
Internal Medicine Subjective - Subjective Service Date: 03/18/19 Patient is:: awake, verbal, yohannes chair, agitated, confused Patient Complaints of:: congestion Per staff patient has:: no adverse event, no episodes of fall, poor appetite, tolerating meds Internal Medicine Objective - Results Result Diagrams: 03/18/19 04:30 03/18/19 04:30 Recent Labs: Laboratory Last Values WBC 16.5 Th/cmm (4.8-10.8) H 03/18/19 04:30 RBC 4.15 Mil/cmm (4.30-5.70) L 03/18/19 04:30 Hgb 11.2 gm/dL (12-16) L 03/18/19 04:30 Hct 33.5 % (41.0-60) L 03/18/19 04:30 MCV 80.7 fl (80-99) 03/18/19 04:30 MCH 27.0 pg (26.0-30.0) 03/18/19 04:30 MCHC Differential 33.5 pg (28.0-36.0) 03/18/19 04:30 RDW 15.4 % (11.5-20.0) 03/18/19 04:30 Plt Count 223 Th/cmm (150-400) 03/18/19 04:30 MPV 8.2 fl 03/18/19 04:30 Add Manual Diff YES 03/18/19 04:30 Neutrophils % [employer]IC[employer] 03/17/19 04:40 Band Neutrophils % 4 % (0-10) 03/18/19 04:30 Lymphocytes % [employer]IC[employer] 03/17/19 04:40 Monocytes % [employer]IC[employer] 03/17/19 04:40 Eosinophils % [employer]IC[employer] 03/17/19 04:40 Basophils % [employer]IC[employer] 03/17/19 04:40 Neutrophils (Manual) 64 % (40-80) 03/18/19 04:30 Lymphocytes 21 % (20-50) 03/18/19 04:30 Monocytes 6 % (2-10) 03/18/19 04:30 Eosinophils 4 % (0-5) 03/18/19 04:30 Platelet Estimate ADEQUATE (NORMAL) 03/18/19 04:30 Smear Path Review [employer]IC[employer] 03/17/19 04:40 PT 10.3 SECONDS (9.5-11.5) 03/11/19 16:33 INR 0.99 (0.5-1.4) 03/11/19 16:33 PTT (Actin FS) 34.5 SECONDS (26.0-38.0) 03/11/19 16:33 Sodium 140 mEq/L (136-145) 03/18/19 04:30 Potassium 4.2 mEq/L (3.5-5.1) 03/18/19 04:30 Chloride 108 mEq/L (98-107) H 03/18/19 04:30 Carbon Dioxide 23.2 mEq/L (21.0-31.0) 03/18/19 04:30 Anion Gap 13.0 (7.0-16.0) 03/18/19 04:30 BUN 14 mg/dL (7-25) 03/18/19 04:30 Creatinine 0.6 mg/dL (0.7-1.3) L 03/18/19 04:30 Est GFR ( Amer) > 60.0 ml/min (>90) 03/18/19 04:30 Est GFR (Non-Af Amer) > 60.0 ml/min 03/18/19 04:30 BUN/Creatinine Ratio 23.3 03/18/19 04:30 Glucose 97 mg/dL (70-105) 03/18/19 04:30 Whole Bld Lactic Acid 0.94 mmol/L (0.60-1.99) 03/11/19 16:33 Calcium 9.1 mg/dL (8.6-10.3) 03/18/19 04:30 Magnesium 2.2 mg/dL (1.9-2.7) 03/13/19 05:10 Total Bilirubin 0.3 mg/dL (0.3-1.0) 03/11/19 16:33 AST 25 U/L (13-39) 03/11/19 16:33 ALT 30 U/L (7-52) 03/11/19 16:33 Alkaline Phosphatase 94 U/L (34-104) 03/11/19 16:33 Creatine Kinase 31 U/L (30-223) 03/11/19 16:33 Troponin I 0.02 ng/mL (0.01-0.05) 03/11/19 16:33 Total Protein 7.7 gm/dL (6.0-8.3) 03/11/19 16:33 Albumin 3.0 gm/dL (4.2-5.5) L 03/11/19 16:33 Globulin 4.7 gm/dL 03/11/19 16:33 Albumin/Globulin Ratio 0.6 (1.0-1.8) L 03/11/19 16:33 Triglycerides 96 mg/dL (<150) 03/11/19 16:33 Cholesterol 95 mg/dL (<200) 03/11/19 16:33 LDL Cholesterol Direct 65 mg/dL (75-193) L 03/11/19 16:33 HDL Cholesterol 16 mg/dL (23-92) L 03/11/19 16:33 Amylase 18 U/L (29-103) L 03/11/19 16:33 Lipase 10 U/L (11-82) L 03/11/19 16:33 TSH 1.54 uIU/ml (0.34-5.60) 03/11/19 16:33 Urine Source CATH 03/12/19 15:17 Urine Color YELLOW 03/12/19 15:17 Urine Clarity CLOUDY (CLEAR) 03/12/19 15:17 Urine pH 6.0 (4.6 - 8.0) 03/12/19 15:17 Ur Specific [place] 1.015 (1.005-1.030) 03/12/19 15:17 Urine Protein 30 mg/dL (NEGATIVE) H 03/12/19 15:17 Urine Glucose (UA) NEGATIVE mg/dL (NEGATIVE) 03/12/19 15:17 Urine Ketones TRACE mg/dL (NEGATIVE) 03/12/19 15:17 Urine Blood MODERATE (NEGATIVE) H 03/12/19 15:17 Urine Nitrate POSITIVE (NEGATIVE) H 03/12/19 15:17 Urine Bilirubin NEGATIVE (NEGATIVE) 03/12/19 15:17 Urine Urobilinogen 0.2 E.U./dL (0.2 - 1.0) 03/12/19 15:17 Ur Leukocyte Esterase LARGE (NEGATIVE) H 03/12/19 15:17 Urine RBC 5-10 /hpf (0-5) H 03/12/19 15:17 Urine WBC 50-100 /hpf (0-5) H 03/12/19 15:17 Ur Epithelial Cells FEW /lpf (FEW) 03/12/19 15:17 Urine Bacteria MANY /hpf (NONE SEEN) H 03/12/19 15:17 Salicylates < 25.0 mg/L (30.0-100.0) L 03/11/19 16:33 Urine Opiates Screen POSITIVE (NEGATIVE) H 03/12/19 15:17 Urine Methadone Screen NEGATIVE (NEGATIVE) 03/12/19 15:17 Acetaminophen < 10.0 ug/mL (10.0-30.0) L 03/11/19 16:33 Ur Barbiturates Screen NEGATIVE (NEGATIVE) 03/12/19 15:17 Ur Tricyclics Screen POSITIVE (NEGATIVE) H 03/12/19 15:17 Ur Phencyclidine Scrn NEGATIVE (NEGATIVE) 03/12/19 15:17 Amphetamines Screen NEGATIVE (NEGATIVE) 03/12/19 15:17 U Methamphetamines Scrn NEGATIVE (NEGATIVE) 03/12/19 15:17 U Benzodiazepines Scrn POSITIVE (NEGATIVE) H 03/12/19 15:17 U Cocaine Metab Screen NEGATIVE (NEGATIVE) 03/12/19 15:17 U Cannabinoids Screen NEGATIVE (NEGATIVE) 03/12/19 15:17 Ethyl Alcohol < 10 mg/dL (0-10) 03/11/19 16:33 RPR NONREACTIVE (NONREACTIVE) 03/11/19 16:33 - Physical Exam Vitals and I&O: Vital Signs Temp 96.9 F 03/18/19 11:33 Pulse 65 03/18/19 11:33 Resp 19 03/18/19 11:33 BP 115/87 03/18/19 11:33 Pulse Ox 96 03/18/19 11:33 Intake & Output 03/17/19 03/18/19 03/18/19 18:59 06:59 18:59 Intake Total 500 150 Output Total 250 Balance 250 150 Weight (lbs) 200 lb 201 lb Intake: Intake, IV Amount 100 Meropenem 1 gm In Sodium 100 Chloride 0.9% 100 ml @ 100 mls/hr IV Q12H [facility] Rx #:[id number] Oral 400 150 Output: Urine 250 Other: # Voids 2 3 # Bowel Movements 0 Weight Source Bedscale Bedscale Active Medications: Current Medications Acetaminophen (Tylenol) 650 mg PO Q12H PRN PRN Reason: Pain (Mild) Stop: 05/10/19 18:16 Last Admin: 03/12/19 09:54 Dose: 650 mg Acetaminophen/Hydrocodone Bitart ([place] 5mg/325mg) 1 tab PO Q6H PRN PRN Reason: Pain (Moderate) Stop: 05/10/19 18:16 Last Admin: 03/17/19 21:09 Dose: 1 tab Ascorbic Acid (Vitamin C) 500 mg PO DAILY [facility] Stop: 05/11/19 08:59 Last Admin: 03/18/19 11:15 Dose: Not Given Aspirin (Aspirin Chewable) 81 mg PO DAILY [facility] Stop: 05/11/19 08:59 Last Admin: 03/18/19 09:28 Dose: 81 mg Bisacodyl (Dulcolax 5 Mg Ec Tab) 10 mg PO Q72H PRN PRN Reason: Constipation Stop: 05/10/19 18:16 Docusate Sodium (Colace) 250 mg PO BID PRN PRN Reason: Constipation Stop: 05/10/19 18:16 Last Admin: 03/14/19 08:44 Dose: 250 mg Hydrochlorothiazide (Hctz) 25 mg PO DAILY [facility] Stop: 05/11/19 08:59 Last Admin: 03/18/19 09:28 Dose: 25 mg Lorazepam (Ativan) 1 mg IVP Q4HR PRN; Protocol PRN Reason: Agitation Stop: 05/16/19 14:22 Last Admin: 03/17/19 14:32 Dose: 1 mg Losartan Potassium (Cozaar) 25 mg PO DAILY [facility] Stop: 05/11/19 08:59 Last Admin: 03/18/19 09:27 Dose: 25 mg Olanzapine (Zyprexa) 20 mg PO HS [facility]; Protocol Stop: 05/12/19 20:59 Last Admin: 03/17/19 21:09 Dose: 20 mg Pantoprazole Sodium (Protonix) 40 mg PO QDAC [facility] Stop: 05/11/19 07:29 Last Admin: 03/18/19 06:54 Dose: 40 mg Polyethylene Glycol (Miralax) 17 gm PO Q72H PRN PRN Reason: Constipation Stop: 05/10/19 19:29 Quetiapine Fumarate (Seroquel) 50 mg PO BID [facility]; Protocol Stop: 05/12/19 16:59 Last Admin: 03/18/19 09:27 Dose: 50 mg Senna (Senna) 8.6 mg PO HS [facility] Stop: 05/10/19 20:59 Last Admin: 03/17/19 21:09 Dose: 8.6 mg Valproate Sodium (Depakene) 250 mg PO Q8HR [facility] Stop: 05/10/19 20:59 Last Admin: 03/18/19 05:53 Dose: 250 mg General: alert HEENT: NC/AT, PERRLA, EOMI Neck: Supple, No JVD Lungs: congested Cardiovascular: RRR, Normal S1, Normal S2 Abdomen: soft, globular, positive bowel sound Extremities: excoriation, ulcers stage 3 Neurological: no change, bedbound - Procedures Procedures: Procedures Procedure Code Date OTHER GROUP THERAPY 94.44 03/29/12 RECREATIONAL THERAPY 93.81 09/06/11 Internal Medicine Assmt/Plan - Assessment Assessment: acute uti with klebsiella pneumoniae, Sepsis, leukocytosis, probable pneumonia, hypertension, history of stroke, dementia, and psych disorder. decub ulcer hip pain - Plan Plan: dc merrem switch to tetracycline dc to geropsych once bed available am labs continue current plan of care Nutritional Asmnt/Malnutr-PDOC - Dietary Evaluation Malnutrition Findings (Please click <Entered> for more info): Nutritional Asmnt/Malnutrition Start: 03/12/19 16: 27 Text: Status: Complete Freq: Protocol: Document 03/12/19 16:28 LCHENG (Rec: 03/12/19 16:40 [email or web address]) Nutritional Asmnt/Malnutrition Patient General Information Nutritional Screening High Risk Consult Diagnosis possible sepsis Pertinent Medical Hx/Surgical Hx HTN, asthma/COPD, CVA/TIA, PUD /GERD, seizures, dementia, bipolar Subjective Information Pt seen sleeping in bed covered with blanket at time of visit. Consult received for wound. Current Diet Order/ Nutrition Support regular Pertinent Medications vit C, colace, D5-0.9%ns, levquin, protonix, miralax, seroquel Pertinent Labs 03/12 K 3.4, Cr 0.6, glucose 116, Ca 8.2, Mg 1.8 Nutritional Hx/Data Height 5 ft 5 in Height (Calculated Centimeters) 165.1 Current Weight (lbs) 218 lb Weight (Calculated Kilograms) 98.9 Weight (Calculated Grams) 57414.1 [place] Body Weight 136 Body Mass Index (BMI) 36.2 Weight Status Obese GI Symptoms GI Symptoms None Last BM not indicated Difficult in: None Skin Integrity/Comment: stage IV pressure ulcer to left buttock per wound care note. Gee 12. Estimated Nutritional Goals BEE in Kcals: Adj wt of IBW Calories/Kcals/Kg 25-30 Kcals Calculated 8563-2656 Protein: Adj wt of IBW Protein g/k.2 Protein Calculated 71 Fluid: ml 1775-2130ml (1ml/kcal) Nutritional Problem 1. Problem Problem increased nutrition needs Etiology impaired skin integrity Signs/Symptoms: stage IV pressure ulcer Malnutrition Alert Is there a minimum of two criteria No selected? Query Text:Check all the applicable criteria. A minimum of two criteria are recommended for diagnosis of either severe or non-severe malnutrition. Malnutrition Related to Morbid Obesity Malnutrition related to morbid obesity No Intervention/Recommendation Comments 1. Continue with regular diet as ordered. Add Gilberto BID for wound healing. 2. Monitor PO intake, wt, labs and skin integrity 3. F/U as high risk in 2-3 days Expected Outcomes/Goals Expected Outcomes/Goals 1. PO intake to meet at least 75% of nutritional needs. 2. Wt stability, skin to remain intact, labs to approach WNL.
[2019-03-18] MEDS: Hydrocodone/APAP 5mg/325mg Tab PO PRN (21:09)
[2019-03-19] MEDS: Hydrocodone/APAP 5mg/325mg Tab PO PRN ×2 (02:53→16:50)
[2019-03-19] MEDS: Pantoprazole 40 mg EC Tab PO SCH (06:31)
[2019-03-19 06:32] LABS: % BASOPHILS 0.7 % (0.0-2.0); % EOSINOPHILS 2.3 % (0.0-5.0); % LYMPHOCYTES 24.3 % (20.0-50.0); % MONOCYTES 9.6 % (2.0-10.0); % NEUTROPHILS 63.1 % (40.0-80.0); BASOPHILE ABSOLUTE 0.1 Th/cumm (0-0.2); EOSINOPHILE ABSOLUTE 0.3 Th/cmm (0.1-0.4); HEMATOCRIT 33.4 % (41.0-60); HEMOGLOBIN 10.9 gm/dL (12-16); LYMPHOCYTE ABSOLUTE 2.6 Th/cmm (1.5-3.0); MEAN CELL VOLUME 80.4 fl (80-99); MEAN CORPUSCULAR HEMOGLOBIN 26.4 pg (26.0-30.0); MEAN CORPUSCULAR HGB CONC 32.8 pg (28.0-36.0); MEAN PLATELET VOLUME 8.4 fl; NEUTROPHILE ABSOLUTE 6.9 Th/cmm (1.8-8.0); PLATELET COUNT 491 Th/cmm (150-400); RED BLOOD COUNT 4.15 Mil/cmm (4.30-5.70); RED CELL DISTRIBUTION WIDTH 15.7 % (11.5-20.0); WHITE BLOOD COUNT 10.9 Th/cmm (4.8-10.8)
[2019-03-19 06:36] LABS: ANION GAP 13.3 (7.0-16.0); BUN - UREA NITROGEN 18 mg/dL (7-25); CALCIUM SERUM 9.2 mg/dL (8.6-10.3); CARBON DIOXIDE 23.5 mEq/L (21.0-31.0); CHLORIDE 105 mEq/L (98-107); CREATININE - SERUM 0.6 mg/dL (0.7-1.3); GFR AFRICAN-AMERICAN > 60.0 ml/min (>90); GFR NON AFRICAN-AMERICAN > 60.0 ml/min; GLUCOSE 101 mg/dL (70-105); POTASSIUM SERUM 3.8 mEq/L (3.5-5.1); SODIUM SERUM 138 mEq/L (136-145)
[2019-03-19] MEDS: Aspirin 81mg Chewable Tab PO SCH (10:10)
[2019-03-19] MEDS: Multivitamin w/ Minerals Tab PO SCH (10:16)
--- NOTE | 2019-03-19 11:39 | Internal Medicine Prog Note ---
Internal Medicine Subjective - Subjective Service Date: 03/19/19 Patient is:: awake, verbal, yohannes chair, agitated, confused Patient Complaints of:: congestion Per staff patient has:: no adverse event, no episodes of fall, poor appetite, tolerating meds Internal Medicine Objective - Results Result Diagrams: 03/19/19 06:00 03/19/19 06:00 Recent Labs: Laboratory Last Values WBC 10.9 Th/cmm (4.8-10.8) H 03/19/19 06:00 RBC 4.15 Mil/cmm (4.30-5.70) L 03/19/19 06:00 Hgb 10.9 gm/dL (12-16) L 03/19/19 06:00 Hct 33.4 % (41.0-60) L 03/19/19 06:00 MCV 80.4 fl (80-99) 03/19/19 06:00 MCH 26.4 pg (26.0-30.0) 03/19/19 06:00 MCHC Differential 32.8 pg (28.0-36.0) 03/19/19 06:00 RDW 15.7 % (11.5-20.0) 03/19/19 06:00 Plt Count 491 Th/cmm (150-400) H 03/19/19 06:00 MPV 8.4 fl 03/19/19 06:00 Add Manual Diff YES 03/18/19 04:30 Neutrophils % 63.1 % (40.0-80.0) 03/19/19 06:00 Band Neutrophils % 4 % (0-10) 03/18/19 04:30 Lymphocytes % 24.3 % (20.0-50.0) 03/19/19 06:00 Monocytes % 9.6 % (2.0-10.0) 03/19/19 06:00 Eosinophils % 2.3 % (0.0-5.0) 03/19/19 06:00 Basophils % 0.7 % (0.0-2.0) 03/19/19 06:00 Neutrophils (Manual) 64 % (40-80) 03/18/19 04:30 Lymphocytes 21 % (20-50) 03/18/19 04:30 Monocytes 6 % (2-10) 03/18/19 04:30 Eosinophils 4 % (0-5) 03/18/19 04:30 Platelet Estimate ADEQUATE (NORMAL) 03/18/19 04:30 Smear Path Review [employer] 03/17/19 04:40 PT 10.3 SECONDS (9.5-11.5) 03/11/19 16:33 INR 0.99 (0.5-1.4) 03/11/19 16:33 PTT (Actin FS) 34.5 SECONDS (26.0-38.0) 03/11/19 16:33 Sodium 138 mEq/L (136-145) 03/19/19 06:00 Potassium 3.8 mEq/L (3.5-5.1) 03/19/19 06:00 Chloride 105 mEq/L (98-107) 03/19/19 06:00 Carbon Dioxide 23.5 mEq/L (21.0-31.0) 03/19/19 06:00 Anion Gap 13.3 (7.0-16.0) 03/19/19 06:00 BUN 18 mg/dL (7-25) 03/19/19 06:00 Creatinine 0.6 mg/dL (0.7-1.3) L 03/19/19 06:00 Est GFR ( Amer) > 60.0 ml/min (>90) 03/19/19 06:00 Est GFR (Non-Af Amer) > 60.0 ml/min 03/19/19 06:00 BUN/Creatinine Ratio 30.0 03/19/19 06:00 Glucose 101 mg/dL (70-105) 03/19/19 06:00 Whole Bld Lactic Acid 0.94 mmol/L (0.60-1.99) 03/11/19 16:33 Calcium 9.2 mg/dL (8.6-10.3) 03/19/19 06:00 Magnesium 2.2 mg/dL (1.9-2.7) 03/13/19 05:10 Total Bilirubin 0.3 mg/dL (0.3-1.0) 03/11/19 16:33 AST 25 U/L (13-39) 03/11/19 16:33 ALT 30 U/L (7-52) 03/11/19 16:33 Alkaline Phosphatase 94 U/L (34-104) 03/11/19 16:33 Creatine Kinase 31 U/L (30-223) 03/11/19 16:33 Troponin I 0.02 ng/mL (0.01-0.05) 03/11/19 16:33 Total Protein 7.7 gm/dL (6.0-8.3) 03/11/19 16:33 Albumin 3.0 gm/dL (4.2-5.5) L 03/11/19 16:33 Globulin 4.7 gm/dL 03/11/19 16:33 Albumin/Globulin Ratio 0.6 (1.0-1.8) L 03/11/19 16:33 Triglycerides 96 mg/dL (<150) 03/11/19 16:33 Cholesterol 95 mg/dL (<200) 03/11/19 16:33 LDL Cholesterol Direct 65 mg/dL (75-193) L 03/11/19 16:33 HDL Cholesterol 16 mg/dL (23-92) L 03/11/19 16:33 Amylase 18 U/L (29-103) L 03/11/19 16:33 Lipase 10 U/L (11-82) L 03/11/19 16:33 TSH 1.54 uIU/ml (0.34-5.60) 03/11/19 16:33 Urine Source CATH 03/12/19 15:17 Urine Color YELLOW 03/12/19 15:17 Urine Clarity CLOUDY (CLEAR) 03/12/19 15:17 Urine pH 6.0 (4.6 - 8.0) 03/12/19 15:17 Ur Specific [place] 1.015 (1.005-1.030) 03/12/19 15:17 Urine Protein 30 mg/dL (NEGATIVE) H 03/12/19 15:17 Urine Glucose (UA) NEGATIVE mg/dL (NEGATIVE) 03/12/19 15:17 Urine Ketones TRACE mg/dL (NEGATIVE) 03/12/19 15:17 Urine Blood MODERATE (NEGATIVE) H 03/12/19 15:17 Urine Nitrate POSITIVE (NEGATIVE) H 03/12/19 15:17 Urine Bilirubin NEGATIVE (NEGATIVE) 03/12/19 15:17 Urine Urobilinogen 0.2 E.U./dL (0.2 - 1.0) 03/12/19 15:17 Ur Leukocyte Esterase LARGE (NEGATIVE) H 03/12/19 15:17 Urine RBC 5-10 /hpf (0-5) H 03/12/19 15:17 Urine WBC 50-100 /hpf (0-5) H 03/12/19 15:17 Ur Epithelial Cells FEW /lpf (FEW) 03/12/19 15:17 Urine Bacteria MANY /hpf (NONE SEEN) H 03/12/19 15:17 Salicylates < 25.0 mg/L (30.0-100.0) L 03/11/19 16:33 Urine Opiates Screen POSITIVE (NEGATIVE) H 03/12/19 15:17 Urine Methadone Screen NEGATIVE (NEGATIVE) 03/12/19 15:17 Acetaminophen < 10.0 ug/mL (10.0-30.0) L 03/11/19 16:33 Ur Barbiturates Screen NEGATIVE (NEGATIVE) 03/12/19 15:17 Ur Tricyclics Screen POSITIVE (NEGATIVE) H 03/12/19 15:17 Ur Phencyclidine Scrn NEGATIVE (NEGATIVE) 03/12/19 15:17 Amphetamines Screen NEGATIVE (NEGATIVE) 03/12/19 15:17 U Methamphetamines Scrn NEGATIVE (NEGATIVE) 03/12/19 15:17 U Benzodiazepines Scrn POSITIVE (NEGATIVE) H 03/12/19 15:17 U Cocaine Metab Screen NEGATIVE (NEGATIVE) 03/12/19 15:17 U Cannabinoids Screen NEGATIVE (NEGATIVE) 03/12/19 15:17 Ethyl Alcohol < 10 mg/dL (0-10) 03/11/19 16:33 RPR NONREACTIVE (NONREACTIVE) 03/11/19 16:33 - Physical Exam Vitals and I&O: Vital Signs Temp 99.3 F 03/19/19 03:56 Pulse 70 03/19/19 10:17 Resp 18 03/19/19 03:56 BP 110/70 03/19/19 10:17 Pulse Ox 98 03/19/19 03:56 Intake & Output 03/18/19 03/19/19 03/19/19 18:59 06:59 18:59 Intake Total 150 840 Output Total 1102 Balance 150 -262 Weight (lbs) 201 lb 201 lb Intake: Oral 150 840 Output: Urine 1002 Stool 100 Other: # Voids 3 # Bowel Movements 0 1 Weight Source Bedscale Estimated Active Medications: Current Medications Acetaminophen (Tylenol) 650 mg PO Q12H PRN PRN Reason: Pain (Mild) Stop: 05/10/19 18:16 Last Admin: 03/12/19 09:54 Dose: 650 mg Acetaminophen/Hydrocodone Bitart (Anson 5mg/325mg) 1 tab PO Q6H PRN PRN Reason: Pain (Moderate) Stop: 05/10/19 18:16 Last Admin: 03/19/19 02:53 Dose: 1 tab Ascorbic Acid (Vitamin C) 500 mg PO DAILY SILVIO Stop: 05/11/19 08:59 Last Admin: 03/19/19 10:16 Dose: 500 mg Aspirin (Aspirin Chewable) 81 mg PO DAILY SILVIO Stop: 05/11/19 08:59 Last Admin: 03/19/19 10:10 Dose: 81 mg Bisacodyl (Dulcolax 5 Mg Ec Tab) 10 mg PO Q72H PRN PRN Reason: Constipation Stop: 05/10/19 18:16 Diphenhydramine HCl (Benadryl 50 Mg/Ml) 50 mg IM Q6HR PRN PRN Reason: Agitation Stop: 05/17/19 21:34 Docusate Sodium (Colace) 250 mg PO BID PRN PRN Reason: Constipation Stop: 05/10/19 18:16 Last Admin: 03/14/19 08:44 Dose: 250 mg Doxycycline Hyclate (Vibramycin) 100 mg PO Q12HR SILVIO Stop: 05/17/19 20:59 Last Admin: 03/19/19 10:15 Dose: 100 mg Hydrochlorothiazide (Hctz) 25 mg PO DAILY SILVIO Stop: 05/11/19 08:59 Last Admin: 03/19/19 10:16 Dose: Not Given Lorazepam (Ativan) 1 mg IM Q4HR PRN; Protocol PRN Reason: Agitation Stop: 05/16/19 14:22 Losartan Potassium (Cozaar) 25 mg PO DAILY SILVIO Stop: 05/11/19 08:59 Last Admin: 03/19/19 10:17 Dose: Not Given Olanzapine (Zyprexa) 20 mg PO HS SILVIO; Protocol Stop: 05/12/19 20:59 Last Admin: 03/18/19 21:09 Dose: 20 mg Pantoprazole Sodium (Protonix) 40 mg PO QDAC SILVIO Stop: 05/11/19 07:29 Last Admin: 03/19/19 06:31 Dose: 40 mg Polyethylene Glycol (Miralax) 17 gm PO Q72H PRN PRN Reason: Constipation Stop: 05/10/19 19:29 Quetiapine Fumarate (Seroquel) 50 mg PO BID [facility]; Protocol Stop: 05/12/19 16:59 Last Admin: 03/19/19 10:16 Dose: 50 mg Senna (Senna) 8.6 mg PO HS [facility] Stop: 05/10/19 20:59 Last Admin: 03/18/19 21:09 Dose: 8.6 mg Valproate Sodium (Depakene) 250 mg PO Q8HR [facility] Stop: 05/10/19 20:59 Last Admin: 03/19/19 05:50 Dose: 250 mg General: alert HEENT: NC/AT, PERRLA, EOMI Neck: Supple, No JVD Lungs: congested Cardiovascular: RRR, Normal S1, Normal S2 Abdomen: soft, globular, positive bowel sound Extremities: excoriation, ulcers stage 3 Neurological: no change, bedbound - Procedures Procedures: Procedures Procedure Code Date OTHER GROUP THERAPY 94.44 03/29/12 RECREATIONAL THERAPY 93.81 09/06/11 Internal Medicine Assmt/Plan - Assessment Assessment: acute uti with klebsiella pneumoniae, Sepsis, leukocytosis, probable pneumonia, hypertension, history of stroke, dementia, and psych disorder. decub ulcer hip pain - Plan Plan: dc planning to snf am labs continue current plan of care Nutritional Asmnt/Malnutr-PDOC - Dietary Evaluation Malnutrition Findings (Please click <Entered> for more info): Nutritional Asmnt/Malnutrition Start: 03/12/19 16: 27 Text: Status: Complete Freq: Protocol: Document 03/12/19 16:28 LCHENG (Rec: 03/12/19 16:40 [email or web address]) Nutritional Asmnt/Malnutrition Patient General Information Nutritional Screening High Risk Consult Diagnosis possible sepsis Pertinent Medical Hx/Surgical Hx HTN, asthma/COPD, CVA/TIA, PUD /GERD, seizures, dementia, bipolar Subjective Information Pt seen sleeping in bed covered with blanket at time of visit. Consult received for wound. Current Diet Order/ Nutrition Support regular Pertinent Medications vit C, colace, D5-0.9%ns, levquin, protonix, miralax, seroquel Pertinent Labs 03/12 K 3.4, Cr 0.6, glucose 116, Ca 8.2, Mg 1.8 Nutritional Hx/Data Height 5 ft 5 in Height (Calculated Centimeters) 165.1 Current Weight (lbs) 218 lb Weight (Calculated Kilograms) 98.9 Weight (Calculated Grams) 21098.1 [place] Body Weight 136 Body Mass Index (BMI) 36.2 Weight Status Obese GI Symptoms GI Symptoms None Last BM not indicated Difficult in: None Skin Integrity/Comment: stage IV pressure ulcer to left buttock per wound care note. Gee 12. Estimated Nutritional Goals BEE in Kcals: Adj wt of IBW Calories/Kcals/Kg 25-30 Kcals Calculated 6399-8125 Protein: Adj wt of IBW Protein g/k.2 Protein Calculated 71 Fluid: ml 1775-2130ml (1ml/kcal) Nutritional Problem 1. Problem Problem increased nutrition needs Etiology impaired skin integrity Signs/Symptoms: stage IV pressure ulcer Malnutrition Alert Is there a minimum of two criteria No selected? Query Text:Check all the applicable criteria. A minimum of two criteria are recommended for diagnosis of either severe or non-severe malnutrition. Malnutrition Related to Morbid Obesity Malnutrition related to morbid obesity No Intervention/Recommendation Comments 1. Continue with regular diet as ordered. Add Gilberto BID for wound healing. 2. Monitor PO intake, wt, labs and skin integrity 3. F/U as high risk in 2-3 days Expected Outcomes/Goals Expected Outcomes/Goals 1. PO intake to meet at least 75% of nutritional needs. 2. Wt stability, skin to remain intact, labs to approach WNL.
== END 2019-03-19 20:20 | DRG 871 ==
LOC: ER 15:55 → MSI 18:44
PROVIDERS: ADMIT Internal Medicine; ATTEND Internal Medicine
DX: A41.9 Sepsis, unspecified organism (principal); J18.9 Pneumonia, unspecified organism; E87.1 Hypo-osmolality and hyponatremia; J44.0 Chronic obstructive pulmonary disease with (acute) lower respiratory infection; N39.0 Urinary tract infection, site not specified; E87.6 Hypokalemia; E86.0 Dehydration; I10 Essential (primary) hypertension; R56.9 Unspecified convulsions; F03.90 Unspecified dementia, unspecified severity, without behavioral disturbance, psychotic disturbance, mood disturbance, and anxiety; F25.9 Schizoaffective disorder, unspecified; B96.1 Klebsiella pneumoniae [K. pneumoniae] as the cause of diseases classified elsewhere; L89.159 Pressure ulcer of sacral region, unspecified stage
CPT/HCPCS: 36415-UA; 71045-TC; 73521; 80048-TC; 80053-TC; 80061-TC; 80307; 80320-TC; 80329-TC; 81001-TC; 82150-TC; 82550-TC; 83605; 83690-TC; 83735-TC; 84443-TC; 84484-TC; 85007-TC; 85025-TC; 85610-TC; 85730-TC; 86592-TC; 87070; 87086-90; 93970-TC-50; 94760; 96375; 96376; J0696; J1200; J1885; J1956; J2060; J2185; J3475; J7030; J7042; J7051; Z7610

== ENCOUNTER 2019-06-26 11:22 | Emergency (ER) | payer MEDICARE, MEDICAID ==
[2019-06-26] MEDS ORDERED: Sodium Chloride 0.9% 1,000 ML IV ONE (11:42)
[2019-06-26 12:18] LABS: % EOSINOPHILS 0.7 % (0.0-5.0); % LYMPHOCYTES 11.2 % (20.0-50.0); % MONOCYTES 5.1 % (2.0-10.0); HEMATOCRIT 30.6 % (41.0-60); LYMPHOCYTE ABSOLUTE 0.7 Th/cmm (1.5-3.0); MEAN CELL VOLUME 80.8 fl (80-99); MEAN CORPUSCULAR HEMOGLOBIN 26.3 pg (26.0-30.0); MEAN CORPUSCULAR HGB CONC 32.6 pg (28.0-36.0); MONOCYTE ABSOLUTE 0.3 Th/cmm (0.3-1.0); NEUTROPHILE ABSOLUTE 5.1 Th/cmm (1.8-8.0); PLATELET COUNT 322 Th/cmm (150-400); RED BLOOD COUNT 3.79 Mil/cmm (4.30-5.70); RED CELL DISTRIBUTION WIDTH 17.4 % (11.5-20.0); WHITE BLOOD COUNT 6.1 Th/cmm (4.8-10.8)
[2019-06-26 12:26] LABS: INR 1.09 (0.5-1.4)
[2019-06-26 12:29] LABS: ANION GAP 13.1 (7.0-16.0); BUN - UREA NITROGEN 38 mg/dL (7-25); CALCIUM SERUM 8.9 mg/dL (8.6-10.3); CARBON DIOXIDE 22.5 mEq/L (21.0-31.0); CHLORIDE 93 mEq/L (98-107); CREATININE - SERUM 1.5 mg/dL (0.7-1.3); GFR AFRICAN-AMERICAN > 60.0 ml/min (>90); GFR NON AFRICAN-AMERICAN 50.4 ml/min; GLUCOSE 117 mg/dL (70-105); POTASSIUM SERUM 3.6 mEq/L (3.5-5.1); SODIUM SERUM 125 mEq/L (136-145)
--- NOTE | 2019-06-26 12:42 | ED Physician Chart ---
ED Chief Complaint/HPI - Patient Information Date Seen:: 06/26/19 Time Seen:: 11:45 Chief Complaint:: hematuria History of Present Illness:: pulled out [place] resulting swelling and bleeding Allergies:: Allergies Allergy/AdvReac Type Severity Reaction Status Date / Time No Known Allergies Allergy Verified 03/11/19 16:09 Vitals:: Vital Signs - 8 hr 06/26/19 06/26/19 06/26/19 11:45 12:07 12:31 Temp 97.6 F 98 F 97.8 F HR 109 95 95 RR 18 18 18 BP 85/51 103/64 115/61 O2 Sat % 97 97 Historian:: EMS, Medical Records Review:: Nurse's Note Reviewed, Transfer documents Reviewed, Patient unable to respond ED Review of Systems - Review of Systems General/Constitutional: No fever (unable to give) ED Past Medical History - Past Medical History Past Medical History: HTN (unable to complete), CVA/TIA, Dementia Family Medical History - Family Member Mother History Unknown: Yes ED Physical Exam - Physical Examination General/Constitutional: Non-toxic appearing Head: Atraumatic Eyes: Lids, conjuctiva normal Skin: No rash (skin swollen) ENMT: External ears, nose nl Neck: Nontender Respiratory: Nl effort/Exclusion Cardio Vascular: RRR (markedly swollen testicle bilateral) GI: No tenderness/rebounding/guarding, Nondistended (inappropriate response) : NL external genitalia (scrotum maximally swoolen) ED Labs/Radiology/EKG Results - Lab Results Results: Laboratory Tests 06/26/19 06/26/19 06/26/19 11:34 11:45 11:45 WBC 6.1 RBC 3.79 L Hgb 10.0 L Hct 30.6 L MCV 80.8 MCH 26.3 MCHC Differential 32.6 RDW 17.4 Plt Count 322 MPV 8.3 Neutrophils % 83.0 H Lymphocytes % 11.2 L Monocytes % 5.1 Eosinophils % 0.7 Basophils % 0.0 PT 11.3 INR 1.09 PTT (Actin FS) 32.5 Sodium Potassium Chloride Carbon Dioxide Anion Gap BUN Creatinine Est GFR ( Amer) Est GFR (Non-Af Amer) BUN/Creatinine Ratio Glucose POC Glucose 120 H Calcium 06/26/19 11:45 WBC RBC Hgb Hct MCV MCH MCHC Differential RDW Plt Count MPV Neutrophils % Lymphocytes % Monocytes % Eosinophils % Basophils % PT INR PTT (Actin FS) Sodium 125 L Potassium 3.6 Chloride 93 L Carbon Dioxide 22.5 Anion Gap 13.1 BUN 38 H Creatinine 1.5 H Est GFR ( Amer) > 60.0 Est GFR (Non-Af Amer) 50.4 BUN/Creatinine Ratio 25.3 Glucose 117 H POC Glucose Calcium 8.9 ED Septic Shock - . Is Septic Shock (SBP<90, OR Lactate>4 mmol\L) present?: No - <6hrs of presentation: Vital Signs: Vital Signs - 8 hr 06/26/19 06/26/19 06/26/19 11:45 12:07 12:31 Temp 97.6 F 98 F 97.8 F HR 109 95 95 RR 18 18 18 BP 85/51 103/64 115/61 O2 Sat % 97 97 ED Reassessment (Disposition) - Reassessment Reassessment Condition:: Improved (discussed hypotension and potential de [place] santos insertion problems bp better with 1000 ns) - Patient Disposition Discharge/Transfer:: Acute Care w/in this hosp
[2019-06-26] MEDS ORDERED: Levofloxacin 500mg/100mL 500 MG/100 ML BAG IV ONE (14:53)
[2019-06-26] MEDS ORDERED: Levofloxacin 500mg/100mL 500 MG/100 ML BAG IV SCH (15:00)
[2019-06-26] MEDS ORDERED: D5-0.45NS 1,000 ML IV SCH ×2 (15:00)
--- NOTE | 2019-06-27 09:30 | Diagnostic Imaging Report ---
Exam: Scrotal ultrasound HISTORY: Swelling Findings: Real-time ultrasound examination of the scrotum was performed utilizing color Doppler technique. The study demonstrates normal echogenicity testis bilaterally with normal vascular flow. Right testicle measures 4.1 x 2.8 x 3.8 cm diameter. Left testicle measures 4.1 x 2.8 x 3.2 standard diameter. Small left epididymis cyst measuring 3 mm appreciated. There is no evidence of varicocele or hydroceles. Edema scrotal wall is noted. IMPRESSION: Edema of the scrotal wall, essentially unremarkable examination of the testes bilaterally.
== END 2019-06-26 18:44 | disposition short-term general hospital (02) ==
LOC: ER 11:22
DX: R31.9 Hematuria, unspecified (principal); I10 Essential (primary) hypertension; F03.90 Unspecified dementia, unspecified severity, without behavioral disturbance, psychotic disturbance, mood disturbance, and anxiety; Z86.73 Personal history of transient ischemic attack (TIA), and cerebral infarction without residual deficits
CPT/HCPCS: 99285; 96365; 76870; 36415; 36416; 82948; 83605 ×3; 85025; 85610; 85730; 80048; 87081; 87040 ×2; J1956; J7030